=== PATIENT | female | born 1940 | race Caucasian/White ===

== ENCOUNTER 2017-11-02 11:59 | Emergency (ER) | payer OTHER, BC ==
[2017-11-02 12:16] LABS: URINE APPEARANCE Clear; URINE BILIRUBIN 1+ (NEGATIVE); URINE GLUCOSE (UA) Trace (NEGATIVE); URINE KETONE 1+ (NEGATIVE)
[2017-11-02 12:17] LABS: URINE COLOR ORANGE; URINE LEUK ESTERASE 3+ (NEGATIVE); URINE NITRITE Positive (NEGATIVE); URINE PROTEIN 3+ (NEGATIVE)
[2017-11-02 12:28] VITALS: TEMP 98.8; BMI 27.4
[2017-11-02 12:32] LABS: EPI CELLS FEW /HPF; URINE WBC >100 (0-5)
[2017-11-02] MEDS ORDERED: ONDANSETRON 4 MG/2 ML VIAL IVPUSH ONE (12:32)
[2017-11-02] MEDS ORDERED: SODIUM CHLORIDE 0.9% 1000 ML INFUS.BAG IV ONE (12:32)
[2017-11-02] MEDS ORDERED: ONDANSETRON 4 MG/2 ML VIAL ONE (12:51)
[2017-11-02 13:31] LABS: ALBUMIN 3.8 g/dl (3.5-5.0); ALK PHOS 51 U/L (32-92); ANION GAP 8 (8-16); BILIRUBIN,TOTAL 1.1 mg/dl (0.2-1.0); BLOOD UREA NITROGEN 17 mg/dl (7-18); CALCIUM 9.2 mg/dl (8.4-10.2); CHLORIDE 102 mmol/L (98-107); CO2 25 mmol/L (22-28); CREATININE 1.1 mg/dl (0.6-1.3); GLUCOSE,RANDOM 280 mg/dl (74-106); POTASSIUM 3.8 mmol/L (3.5-5.1); SGOT/AST 23 U/L (10-42); SGPT/ALT 15 U/L (10-40); SODIUM 135 mmol/L (136-145); TOT PROT 6.5 g/dl (6.4-8.3)
[2017-11-02] MEDS ORDERED: CEFTRIAXONE 1,000 MG in DEXTROSE 5%-WATER - 50 ML IVPB ONE (13:34)
[2017-11-02] MEDS ORDERED: cefTRIAXone SODIUM 1 GM VIAL ONE (14:00)
--- NOTE | 2017-11-02 14:12 | PDOC ---
History of Present Illness - General Chief Complaint: Urinary Problem Stated Complaint: UTI Time Seen by Provider: 11/02/17 12:05 History Source: Patient Exam Limitations: No Limitations - History of Present Illness Initial Comments: 11/02/17 14:07 76-year-old female history of diverticulitis and diabetes here today complaining of suprapubic abdominal pain burning with urination and dysuria. She states she had a fever of 102 yesterday. She did have a CAT scan of the abdomen and pelvis one week ago for abdominal pain which she is unsure of the results did have some nausea and vomiting yesterday as well as 1 week ago following her CAT scan. Otherwise has been tolerating by mouth denies new back pain she does have some chronic Musca skeletal low back pain but no changes. Describes suprapubic cramping no modifying factors Past History - Past Medical History Allergies/Adverse Reactions: Allergies Allergy/AdvReac Type Severity Reaction Status Date / Time No Known Allergies Allergy Verified 11/02/17 12:00 Home Medications: Ambulatory Orders Isosorbide Mononitrate 30 mg PO DAILY 07/03/15 Sitagliptin Phos/Metformin HCl [Janumet 50-500 mg Tablet] 1 tab PO BID 07/03/15 Telmisartan [Micardis] 80 mg PO DAILY 07/03/15 Aspirin [ASA -] 81 mg PO DAILY 07/04/15 Zolpidem Tartrate [Ambien] 5 mg PO HS 07/04/15 Nifedipine ER [Procardia XL -] 120 mg PO DAILY #30 tab.er.24 07/06/15 Cephalexin Monohydrate [Keflex -] 500 mg PO Q8H #21 capsule 11/02/17 Duloxetine HCl 30 mg PO DAILY 11/02/17 Insulin Lispro Protamin/Lispro [Humalog Mix 75-25 Kwikpen] 100 unit SQ ASDIR 06/10 Olmesartan Medoxomil [Benicar (Nf)] 40 mg PO DAILY 11/02/17 Spironolactone 50 mg PO DAILY 11/02/17 Anemia: No Asthma: Yes Cancer: Yes (LT BREAST) Cardiac Disorders: Yes (CORONARY ATHEROSCLEROSIS) CVA: Yes (STROKE) COPD: No CHF: No Dementia: No Diabetes: Yes (IDDM,DIABETIC NEUROPATHY) GI Disorders: Yes (DIVERTICULAR DISEASE OF THE COLON,INTERNAL HEMORRHOIDS,GERD, CONSTIPATION) Disorders: No HTN: Yes Hypercholesterolemia: Yes Liver Disease: No Seizures: No Thyroid Disease: No - Surgical History Abdominal Surgery: Yes Appendectomy: No Cardiac Surgery: Yes (CARDIAC STENT 2X) Cholecystectomy: Yes Neurologic Surgery: No Orthopedic Surgery: Yes (right ankle sx- screws) - Immunization History Immunization Up to Date: Yes - Suicide/Smoking/Psychosocial Hx Smoking Status: No Smoking History: Never smoked Have you smoked in the past 12 months: No Number of Cigarettes Smoked Daily: 0 Information on smoking cessation initiated: No Hx Alcohol Use: No Drug/Substance Use Hx: No Substance Use Type: None Hx Substance Use Treatment: No *Physical Exam - Vital Signs Last Vital Signs Temp Pulse Resp BP Pulse Ox 98.8 F 79 20 153/75 98 11/02/17 12:00 11/02/17 12:00 11/02/17 13:00 11/02/17 12:00 11/02/17 12:00 - Physical Exam General Appearance: Yes: Appropriately Dressed Respiratory/Chest: positive: Lungs Clear, Normal Breath Sounds Cardiovascular: positive: Regular Rhythm, Regular Rate, S1, S2 Gastrointestinal/Abdominal: positive: Normal Bowel Sounds, Tender (suprapubic tenderness. no rebound no guarding. no cva tenderness) Musculoskeletal: positive: Normal Inspection. negative: CVA Tenderness Extremity: positive: Normal Capillary Refill, Normal Inspection Integumentary: positive: Normal Color, Dry, Warm Neurologic: positive: Fully Oriented, Alert, Normal Mood/Affect ED Treatment Course - LABORATORY CBC & Chemistry Diagram: 11/02/17 13:09 11/02/17 13:09 - ADDITIONAL ORDERS Additional order review: Laboratory Results 11/02/17 11/02/17 13:09 12:10 Sodium 135 L Potassium 3.8 Chloride 102 Carbon Dioxide 25 Anion Gap 8 BUN 17 Creatinine 1.1 Creat Clearance w eGFR 48.42 Random Glucose 280 H Calcium 9.2 Total Bilirubin 1.1 H AST 23 ALT 15 Alkaline Phosphatase 51 Total Protein 6.5 Albumin 3.8 Urine Color [place] Urine Appearance Clear Urine pH 5.0 Ur Specific [place] 1.020 Urine Protein 3+ H Urine Glucose (UA) Trace Urine Ketones 1+ H Urine Blood 3+ H Urine Nitrite Positive Urine Bilirubin 1+ H Urine Urobilinogen 2.0 H Ur Leukocyte Esterase 3+ H Urine RBC 10-15 Urine WBC >100 Ur Epithelial Cells Few - Medications Given in the ED: ED Medications Discontinued Medications Generic Name Dose Route Start Last Admin Trade Name Inna PRN Reason Stop Dose Admin Ceftriaxone Sodium 1,000 mg/ 50 mls @ 100 mls/hr 11/02/17 13:34 11/02/17 14: 04 Dextrose IVPB 11/02/17 14:03 100 mls/hr ONCE ONE Administration Ondansetron HCl 4 mg 11/02/17 12:32 11/02/17 13:10 Zofran Injection IVPUSH 11/02/17 12:33 4 mg ONCE ONE Administration Sodium Chloride 1,000 ml 11/02/17 12:32 11/02/17 13:10 Normal Saline - IV 11/02/17 12:33 1,000 ml ONCE ONE Administration Medical Decision Making - Medical Decision Making 11/02/17 14:08 76-year-old female diabetes here today complaining of dysuria urgency and mild superficial tenderness on exam. Likely UTI differential includes polynephritis, another possibility is diverticulitis over the patient did recently have a CAT scan done as an outpatient. We will send blood work with a lactate to rule out any underlying sepsis. Likely treat clinically for a UTI due to patient is diabetic we'll give her one IV dose of antibiotics pending lab results will likely be treated as an outpatient with close follow-up with her primary doctor 11/02/17 15:03 pt with normal wbc, uti. given ceftriaxone here, dc on keflex. cultures sent. told to follow up wtih dr. Toney next week. *DC/Admit/Observation/Transfer Diagnosis at time of Disposition: UTI (urinary tract infection) - Discharge Dispostion Disposition: HOME Condition at time of disposition: Improved - Prescriptions Prescriptions: Cephalexin Monohydrate [Keflex -] 500 mg PO Q8H #21 capsule - Referrals Referrals: Ishan Toney MD [Staff Physician] - - Patient Instructions Printed Discharge Instructions: Urinary Tract Infection Additional Instructions: you should take keflex 500 mg three times daily x one week. return for persistant vomiting, fevers, worsening abdominal pain or any concerns. you should follow up with your primary doctor , Dr. Toney next week. call to schedule. drink plenty of liquids - Post Discharge Activity
[2017-11-02 14:49] LABS: EOS % 3.1 % (0-4.5); HEMOGLOBIN 14.6 GM/dL (10.7-15.3); WHITE BLOOD COUNT 8.9 K/mm3 (4.0-10.0)
[2017-11-02 14:53] LABS: BASO % 0.5 % (0-2.0); HEMATOCRIT 42.3 % (32.4-45.2); LYMPH % 14.2 % (8-40); MCH 32.7 pg (25.7-33.7); MCHC 34.4 g/dl (32.0-36.0); MEAN PLT VOLUME 10.4 fl (7.5-11.1); MONO % 8.2 % (3.8-10.2); PLATELET COUNT 192 K/MM3 (134-434); RBC 4.46 M/mm3 (3.60-5.2); RDW 12.3 % (11.6-15.6)
== END 2017-11-02 17:18 | disposition home or self-care (01) ==
LOC: FER 11:59
PROC: 3E03329 Introduction of Other Anti-infective into Peripheral Vein, Percutaneous Approach (ICD-10-PCS; principal; 2017-11-02)
PROC: 3E033GC Introduction of Other Therapeutic Substance into Peripheral Vein, Percutaneous Approach (ICD-10-PCS; 2017-11-02)
PROC: 3E0337Z Introduction of Electrolytic and Water Balance Substance into Peripheral Vein, Percutaneous Approach (ICD-10-PCS; 2017-11-02)
DX: N39.0 Urinary tract infection, site not specified (principal); E11.9 Type 2 diabetes mellitus without complications; Z85.3 Personal history of malignant neoplasm of breast; Z79.4 Long term (current) use of insulin; Z86.73 Personal history of transient ischemic attack (TIA), and cerebral infarction without residual deficits; E78.00 Pure hypercholesterolemia, unspecified; Z95.5 Presence of coronary angioplasty implant and graft
CPT/HCPCS: 36415; 80053; 81003; 81015; 83605; 85025; 87086; 87186; 99283-25; J7030

== ENCOUNTER 2019-01-01 15:54 | Inpatient (IN) | payer OTHER, BC ==
[2019-01-01] MEDS ORDERED: METOCLOPRAMIDE HCL INJECTION 10 MG/2 ML VIAL IVPB ONE (16:21)
[2019-01-01] MEDS ORDERED: ACETAMINOPHEN 1000 MG/100 ML VIAL (NON FORMULARY) IVPB ONE (16:21)
[2019-01-01] MEDS ORDERED: SODIUM CHLORIDE 1,000 ML IV SCH (16:30)
[2019-01-01] MEDS ORDERED: ACETAMINOPHEN INJECTION 100 ML IVPB ONE (17:09)
[2019-01-01] MEDS ORDERED: METOCLOPRAMIDE HCL INJECTION 10 MG/2 ML VIAL ONE (17:09)
--- NOTE | 2019-01-01 17:55 | PDOC ---
Documentation entered by Shahnaz Braswell SCRIBE, acting as scribe for Dinorah Barkley MD. Dinorah Barkley MD: This documentation has been prepared by the derianibe, Shahnaz Braswell SCRIBE, under my direction and personally reviewed by me in its entirety. I confirm that the documentation accurately reflects all work, treatment, procedures, and medical decision making performed by me. History of Present Illness - General Chief Complaint: CVA/TIA Stated Complaint: HEADACHE & FACE NUMBNESS Time Seen by Provider: 01/01/19 16:00 History Source: Patient Exam Limitations: No Limitations - History of Present Illness Initial Comments: 01/01/19 16:51 The patient is a 78-year-old female, with a past medical history of asthma, CAD , LT breast CA, CVA, IDDM, diabetic neuropathy, HLD, GERD, hemorrhoids, diverticulitis, who presents to the ED with stroke-like symptoms. The patient awoke this morning at 6AM with a headache and RT facial numbness. She states the headache is located at the top of her head and she rates it a 10/10 in severity. She reports associated blurred vision, photophobia, nausea, and vomiting. Patient has had two episodes of NB/NB emesis. The patient denies any fever or chills. Denies any frequency, urgency, hesitancy , dysuria, or hematuria. Denies any chest pain or shortness of breath. Allergies: NKA Social History: Denies any tobacco, alcohol, or IVDA. Surgical History: Cardiac stents x2, RT ankle surgery, cholecystectomy. PCP: Dr. Amando Bains tPA Exclusion checklist 3-4.5h - Time Elapsed Date last known well: 12/31/18 Time last known well: 20:00 Elaspsed time: 1 Day(s) and 21 Hour(s) and 8 Minutes - Thrombolytic Therapy Candidate Is patient eligible for thrombolytic therapy: No - Exclusion Criteria 3-4.5 hr SBP greater than 185 or DBP greater than 110mmHg despite tx: Yes Recent IC/spinal surgery,head trauma or stroke<3mos.: No Hx IC hemorrhage, IC neoplasm, AV malformation or aneurysm: No Active internal bleeding: No Blding diathesis(low plt ct, inc PTT,INR>1.7 or use of NOAC): No Symptoms suggest subarachnoid hemorrhage: No CT demonstrates multilobar infarct(>1/3 cerebral hemiphere): No Arterial puncture at noncompressible site in previous 7 days: No Blood glucose concentration less than 50mg/dL (2.7mmol/L): No - Relative Exclusion Criteria 3-4.5 hr Life expectancy <1 yr or severe co-morbid illness: No : No Patient/family refused: No Rapid improvement: No Stroke severity too mild: No Recent acute NC (w/in previous 3 months): No Seizure at onset with postictal residual neuro impairments: No Major surgery or serious trauma w/in previous 14 days: No Recent GI or hemorrhage (w/in previous 21 days): No - Add'l Relative Exclusion 3-4.5 hr Age > 80: No Hx of both diabetes AND prior ischemic stroke: No Taking an oral anticoagulant regardless of INR: No NIHSS >25: No - Ineligibility reason(s) Reasons No tPA given: Outside of window - delayed arrival NIH Stroke Scale - Last Known Well Date/Time & Onset Date Last Known Well: 12/31/18 Time Last Known Well: 20:00 - Initial Evaluation Level of consciousness: Alert Ask patient the month and their age: Answers both correctly Ask patient to open & close eyes; make fist and let go: Obeys both correctly Best gaze (horizontal eye movement): Normal Visual field testing: Partial hemianopia Facial paresis (Show teeth/raise eyebrows/close eyes tight): Normal symmetrical movement Motor Function: Left Arm: Normal Motor Function: Right Arm: Normal (extends arm 90 (or 45) degrees for 10 seconds without drift Motor Function: Left Leg: Normal (extends leg 30 degrees for 5 seconds without drift) Motor Function: Right Leg: Drift Limb Ataxia: No ataxia Sensory(Use pinprick test arms,legs,trunk,face/side to side): Normal Best language (Describe picture, name items, read sentences): No Aphasia Dysarthria (read several words): Normal articulation Extinction and Inattention: No abnormality - Total Score NIH Stroke Scale Score: 2 Past History - Past Medical History Allergies/Adverse Reactions: Allergies Allergy/AdvReac Type Severity Reaction Status Date / Time No Known Allergies Allergy Verified 11/02/17 12:00 Home Medications: Ambulatory Orders Isosorbide Mononitrate 30 mg PO DAILY 07/03/15 Sitagliptin Phos/Metformin HCl [Janumet 50-500 mg Tablet] 1 tab PO BID 07/03/15 Telmisartan [Micardis] 80 mg PO DAILY 07/03/15 Nifedipine ER [Procardia XL -] 120 mg PO DAILY #30 tab.er.24 07/06/15 Duloxetine HCl 30 mg PO DAILY 11/02/17 Insulin Lispro Protamin/Lispro [Humalog Mix 75-25 Kwikpen] 100 unit SQ ASDIR 06/10 Spironolactone 50 mg PO DAILY 11/02/17 Aspirin [Aspirin EC] 81 mg PO DAILY 01/01/19 Lubiprostone [Amitiza] 8 mcg PO BID 01/01/19 Zolpidem Tartrate [Ambien] 10 mg PO HS 01/01/19 Anemia: No Asthma: Yes Cancer: Yes (LT BREAST) Cardiac Disorders: Yes (CORONARY ATHEROSCLEROSIS) CVA: Yes (STROKE) COPD: No CHF: No Dementia: No Diabetes: Yes (IDDM,DIABETIC NEUROPATHY) GI Disorders: Yes (DIVERTICULAR DISEASE OF THE COLON,INTERNAL HEMORRHOIDS,GERD, CONSTIPATION) Disorders: No HTN: Yes Hypercholesterolemia: Yes Liver Disease: No Seizures: No Thyroid Disease: No - Surgical History Abdominal Surgery: Yes Appendectomy: No Cardiac Surgery: Yes (CARDIAC STENT 2X) Cholecystectomy: Yes Neurologic Surgery: No Orthopedic Surgery: Yes (right ankle sx- screws) - Immunization History Immunization Up to Date: Yes - Suicide/Smoking/Psychosocial Hx Smoking Status: No Smoking History: Never smoked Have you smoked in the past 12 months: No Number of Cigarettes Smoked Daily: 0 Hx Alcohol Use: No Drug/Substance Use Hx: No Substance Use Type: None Hx Substance Use Treatment: No Review of Systems - Review of Systems Able to Perform ROS?: Yes Comments:: 01/01/19 16:52 GENERAL/CONSTITUTIONAL: No fever or chills. No weakness. HEAD, EYES, EARS, NOSE AND THROAT: (+)Blurred vision, photophobia. No ear pain or discharge. No sore throat. CARDIOVASCULAR: No chest pain or shortness of breath. RESPIRATORY: No cough, wheezing, or hemoptysis. GASTROINTESTINAL: (+)Nausea and vomiting. No diarrhea or constipation. GENITOURINARY: No dysuria, frequency, or change in urination. MUSCULOSKELETAL: No joint or muscle swelling or pain. No neck or back pain. SKIN: No rash NEUROLOGIC: (+)Headache, RT facial numbness. No vertigo, loss of consciousness. ENDOCRINE: No increased thirst. No abnormal weight change. HEMATOLOGIC/LYMPHATIC: No anemia, easy bleeding, or history of blood clots. ALLERGIC/IMMUNOLOGIC: No hives or skin allergy. *Physical Exam - Physical Exam Comments: 01/01/19 16:54 GENERAL: The patient is in no acute distress. HEAD: Normal with no signs of trauma. EYES: PERRLA, EOMI, sclera anicteric, conjunctiva clear. ENT: Ears normal, nares patent, oropharynx clear without exudates. Moist mucous membranes. NECK: Normal range of motion, supple without lymphadenopathy, JVD, or masses. LUNGS: Breath sounds equal, clear to auscultation bilaterally. No wheezes, and no crackles. HEART:Regular rate and rhythm, normal S1 and S2 without murmur, rub or gallop. ABDOMEN: Soft, nontender, normoactive bowel sounds. No guarding, no rebound. No masses palpable. EXTREMITIES: Normal range of motion, no edema. No clubbing or cyanosis. No erythema, or tenderness. NEUROLOGICAL: Awake, alert, answering questions appropriately. (+)Poor peripheral vision on RT side, diminished sensation RT side of face. Sensation intact throughout. Muscle strength in upper extremities 5/5, but lower extremities: LLE 5/5 and RLE 3/5. MUSCULOSKELETAL: Back non-tender to palpation, no CVA tenderness SKIN: Warm, Dry, normal turgor, no rashes or lesions noted. ED Treatment Course - LABORATORY CBC & Chemistry Diagram: 01/02/19 06:00 01/02/19 06:00 Medical Decision Making - Critical Care Time Total Critical Care Time (minutes): 60 Critical Care Statement: The care of this patient involved high complexity decision making to prevent further life threatening deterioration of the patient 's condition and/or to evaluate & treat vital organ system(s) failure or risk of failure. - Medical Decision Making Pt presents with symptoms concerning for stroke Pt also has a headache Will give: Reglan/Tylenol for headache Labetolol for elevated BP CT head Labs EKG CXR Continuous Cardiac monitoring 01/01/19 18:04 Dr. Jay was paged and notified via phone service. 01/01/19 18:[address] Pierre Jay has some concern because if patient does not get a bed at [facility], she can not put in orders for her 01/01/19 18:34 Laboratory Tests 01/01/19 01/01/19 01/01/19 17:30 17:30 17:30 WBC 7.6 Hgb 15.8 H Hct 48.1 H Plt Count 215 INR 1.10 Urine Blood Negative Urine Nitrite Negative Ur Leukocyte Esterase 2+ Urine RBC No Result Required. Urine WBC 2-5 EKG- NSR rate of 69 bpm, axis nml, no st elevation or depression, t waves upright Case reviewed with hospitalist Will admit to [facility] Case reviewed with Dr El 01/01/19 18:43 Laboratory Tests 01/01/19 01/01/19 01/01/19 17:30 17:30 17:30 BUN 19.0 H Creatinine 0.9 Creatine Kinase 120 Troponin I < 0.03 01/01/19 19:[address] Garrison Pt needs MRI, Carotid duplex Pt already took Asa 81, no need to add Can add Plavix Clinical Impression: CVA, initial presentation 01/02/19 13:18 *DC/Admit/Observation/Transfer Diagnosis at time of Disposition: CVA (cerebral vascular accident) Qualifiers: CVA mechanism: unspecified Qualified Code(s): I63.9 - Cerebral infarction, unspecified - Discharge Dispostion Condition at time of disposition: Stable Decision to Admit order: Yes - Referrals - Patient Instructions - Post Discharge Activity
[2019-01-01 18:15] LABS: BASO % 0.3 % (0-2.0); HEMATOCRIT 48.1 % (32.4-45.2); HEMOGLOBIN 15.8 GM/dl (10.7-15.3); LYMPH % 27.8 % (8-40); MCHC 32.9 g/dl (32.0-36.0); MEAN CELL VOLUME 94.2 fl (80-96); MEAN PLT VOLUME 11.2 fl (7.5-11.1); MONO % 7.7 % (3.8-10.2); NEUT % 62.2 % (42.8-82.8); PLATELET COUNT 215 K/MM3 (134-434); RBC 5.11 M/mm3 (3.60-5.2); WHITE BLOOD COUNT 7.6 K/mm3 (4.0-10.8)
[2019-01-01 18:20] LABS: EPITHELIAL CELLS FEW /hpf
[2019-01-01 18:22] LABS: INR 1.1 (0.82-1.09); PROTHROMBIN TIME (PATIENT) 12.3 SEC (10.2-13.0)
[2019-01-01 18:29] LABS: ALBUMIN 4.4 g/dl (3.4-5.0); BILIRUBIN,TOTAL 1.5 mg/dl (0.2-1); CALCIUM 9.6 mg/dl (8.5-10); CREATININE 0.9 mg/dl (0.55-1.3); POTASSIUM 4.2 mmol/L (3.5-5.1); TOT PROT 7.2 g/dl (6.4-8.2)
[2019-01-01] MEDS ORDERED: LABETALOL HCL 5 MG/1 ML (100MG/20 ML VIAL) IVPUSH ONE (19:00)
--- NOTE | 2019-01-01 19:01 | HP ---
CHIEF COMPLAINT: headache, right facial numbness PCP: Dr. Amando Bains HISTORY OF PRESENT ILLNESS: 78 year-old female c/o waking up this morning around 6am with severe headache, transient visual loss, and tongue heaviness. Headache was rated 10/10 at its worst. Also c/o associated blurred vision, photophobia, nausea, and vomiting. Patient has had two episodes of NB/NB emesis. Denied any focal weakness. Says she still has some residual right face numbness from old stroke 10 years ago. (1) reglan (2) tylenol (3) iv fluid Recent Travel: no PAST MEDICAL HISTORY: asthma, CAD, LT breast CA, CVA, IDDM, diabetic neuropathy , HLD, GERD, hemorrhoids, diverticulitis, PAST SURGICAL HISTORY: Cardiac stents x2, RT ankle surgery, cholecystectomy. Social History:Denies any tobacco, alcohol, or IVDA. Family History: Allergies No Known Allergies Allergy (Verified 11/02/17 12:00) HOME MEDICATIONS: Home Medications Medication Instructions Recorded Isosorbide Mononitrate 30 mg PO DAILY 07/03/15 Sitagliptin Phos/Metformin HCl 1 tab PO BID 07/03/15 [Janumet 50-500 mg Tablet] Telmisartan [Micardis] 80 mg PO DAILY 07/03/15 Nifedipine ER [Procardia XL -] 120 mg PO DAILY #30 tab.er.24 07/06/15 Duloxetine HCl 30 mg PO DAILY 11/02/17 Insulin Lispro Protamin/Lispro 100 unit SQ ASDIR 11/02/17 [Humalog Mix 75-25 Kwikpen] Spironolactone 50 mg PO DAILY 11/02/17 Aspirin [Aspirin EC] 81 mg PO DAILY 01/01/19 Lubiprostone [Amitiza] 8 mcg PO BID 01/01/19 Zolpidem Tartrate [Ambien] 10 mg PO HS 01/01/19 REVIEW OF SYSTEMS CONSTITUTIONAL: Absent: fever, chills, diaphoresis, generalized weakness, malaise, loss of appetite, weight change HEENT: Absent: rhinorrhea, nasal congestion, throat pain, throat swelling, difficulty swallowing, mouth swelling, ear pain, eye pain, visual changes CARDIOVASCULAR: Absent: chest pain, syncope, palpitations, irregular heart rate, lightheadedness , peripheral edema RESPIRATORY: Absent: cough, shortness of breath, dyspnea with exertion, orthopnea, wheezing, stridor, hemoptysis GASTROINTESTINAL: Absent: abdominal pain, abdominal distension, nausea, vomiting, diarrhea, constipation, melena, hematochezia GENITOURINARY: Absent: dysuria, frequency, urgency, hesitancy, hematuria, flank pain, genital pain MUSCULOSKELETAL: Absent: myalgia, arthralgia, joint swelling, back pain, neck pain SKIN: Absent: rash, itching, pallor HEMATOLOGIC/IMMUNOLOGIC: Absent: easy bleeding, easy bruising, lymphadenopathy, frequent infections ENDOCRINE: Absent: unexplained weight gain, unexplained weight loss, heat intolerance, cold intolerance NEUROLOGIC: Absent: , focal weakness or dizziness, unsteady gait, seizure, mental status changes, bladder or bowel incontinence present-tongue numbness, weakness , headache, visual disturbance PSYCHIATRIC: Absent: anxiety, depression, suicidal or homicidal ideation, hallucinations. PHYSICAL EXAMINATION Vital Signs - 24 hr 01/01/19 01/01/19 01/01/19 15:56 17:00 17:45 Temperature 98.7 F Pulse Rate 69 Pulse Rate [ 72 69 Apical] Respiratory 16 18 16 Rate Blood Pressure 205/80 H Blood Pressure 185/75 H [Left Arm] Blood Pressure 174/70 H [Right Arm] O2 Sat by Pulse 99 97 99 Oximetry (%) 01/01/19 18:05 Temperature Pulse Rate Pulse Rate [ 70 Apical] Respiratory 15 Rate Blood Pressure Blood Pressure [Left Arm] Blood Pressure 177/77 H [Right Arm] O2 Sat by Pulse 97 Oximetry (%) GENERAL: Awake, alert, and fully oriented, in no acute distress. HEAD: Normal with no signs of trauma. EYES: Pupils equal, round and reactive to light, extraocular movements intact, sclera anicteric, conjunctiva clear. No lid lag. EARS, NOSE, THROAT: Ears normal, nares patent, oropharynx clear without exudates. Moist mucous membranes. NECK: Normal range of motion, supple without lymphadenopathy, JVD, or masses. LUNGS: Breath sounds equal, clear to auscultation bilaterally. No wheezes, and no crackles. No accessory muscle use. HEART: Regular rate and rhythm, normal S1 and S2 without murmur, rub or gallop. ABDOMEN: Soft, nontender, not distended, normoactive bowel sounds, no guarding, no rebound, no masses. MUSCULOSKELETAL: Normal range of motion at all joints. No bony deformities or tenderness. No CVA tenderness. UPPER EXTREMITIES: 2+ pulses, warm, well-perfused. No cyanosis. No clubbing. No peripheral edema. LOWER EXTREMITIES: 2+ pulses, warm, well-perfused. right ankle scar, +swelling NEUROLOGICAL: Cranial nerves II-XII intact. Normal speech. Normal gait. PSYCHIATRIC: Cooperative. Good eye contact. Appropriate mood and affect.Possi SKIN: Warm, dry, normal turgor, no rashes or lesions noted, normal capillary refill. Laboratory Results - last 24 hr 01/01/19 01/01/19 01/01/19 17:30 17:30 17:30 WBC 7.6 RBC 5.11 Hgb 15.8 H Hct 48.1 H MCV 94.2 MCH 31.0 MCHC 32.9 RDW 12.0 Plt Count 215 MPV 11.2 H Absolute Neuts (auto) 4.7 Neutrophils % 62.2 Lymphocytes % 27.8 Monocytes % 7.7 Eosinophils % 2.0 Basophils % 0.3 PT with INR 12.3 INR 1.10 Sodium 139 Potassium 4.2 Chloride 104 Carbon Dioxide 26 Anion Gap 9 BUN 19.0 H Creatinine 0.9 Est GFR (CKD-EPI)AfAm 71.48 Est GFR (CKD-EPI)NonAf 61.67 Random Glucose 87 Calcium 9.6 Total Bilirubin 1.5 H AST 32 ALT 32 Alkaline Phosphatase 74 Creatine Kinase 120 Troponin I Cancelled Total Protein 7.2 Albumin 4.4 Triglycerides 69 Cholesterol 188 Total LDL Cholesterol 119 H HDL Cholesterol 56 Urine Color Urine Appearance Urine pH Urine Protein Urine Glucose (UA) Urine Ketones Urine Blood Urine Nitrite Urine Bilirubin Urine Urobilinogen Ur Leukocyte Esterase Urine RBC Urine WBC Ur Transition Epith Cell 01/01/19 01/01/19 01/01/19 17:30 17:30 17:30 WBC RBC Hgb Hct MCV MCH MCHC RDW Plt Count MPV Absolute Neuts (auto) Neutrophils % Lymphocytes % Monocytes % Eosinophils % Basophils % PT with INR INR Sodium Potassium Chloride Carbon Dioxide Anion Gap BUN Creatinine Est GFR (CKD-EPI)AfAm Est GFR (CKD-EPI)NonAf Random Glucose Calcium Total Bilirubin AST ALT Alkaline Phosphatase Creatine Kinase 120 Troponin I < 0.03 Total Protein Albumin Triglycerides Cholesterol Total LDL Cholesterol HDL Cholesterol Urine Color Yellow Urine Appearance Clear Urine pH 6.5 Urine Protein Negative Urine Glucose (UA) 2+ H Urine Ketones Trace Urine Blood Negative Urine Nitrite Negative Urine Bilirubin Negative Urine Urobilinogen 0.2 Ur Leukocyte Esterase 2+ Urine RBC No Result Required. Urine WBC 2-5 Ur Transition Epith Cell Few Head CT reviewed - hypodense lesions in left cerebellum vs left posterior lobe ASSESSMENT/PLAN: #Possible CVA -microvascular?- acute neurological symptoms (headache, tongue heaviness) with+ Head CT findings-was out of window for TPA administration. -admit to telemetry -npo -check bgm -ekg -cardiac monitoring -ASA -lipitor 80mg po qhs -neuro checks q4hrs -bed rest -brain mri, neck mra -echo -carotid duplex -neurology consult #HTN -uncontrolled -Temisartan -Nifedipine #Insulin dependent DM - -novolog sliding scale -check a1c #CAD -ASSA -lipitor #GERD -protonix 40mg po #asthma -albuterol neb prn #DVT ppx -heparin sc Visit type - Emergency Visit Emergency Visit: Yes Care time: The patient presented to the Emergency Department on the above date and was hospitalized for further evaluation of their emergent condition. - New Patient This patient is new to me today: Yes Date on this admission: 01/01/19 - Critical Care Critical Care patient: No
[2019-01-01] MEDS ORDERED: CLOPIDOGREL BISULFATE 75 MG TABLET (FP) PO ONE (19:14)
[2019-01-01] MEDS ORDERED: LABETALOL HCL 5 MG/1 ML (100MG/20 ML VIAL) ONE (19:47)
[2019-01-01] MEDS ORDERED: CLOPIDOGREL BISULFATE 75 MG TABLET (FP) ONE (19:52)
[2019-01-01] MEDS: SODIUM CHLORIDE 1,000 ML IV SCH (20:00)
[2019-01-01] MEDS: INSULIN SLIDING SCALE (NOVOLOG) 1 VIAL SQ SCH (21:51)
[2019-01-01] MEDS ORDERED: HEPARIN NA (PORCINE) 5,000 UNITS/ML 1ML VIAL ONE (21:52)
[2019-01-01] MEDS ORDERED: ATORVASTATIN CA 20 MG TABLET (FP) ONE (21:53)
[2019-01-01] MEDS: HEPARIN NA (PORCINE) 5,000 UNITS/ML 1ML VIAL SQ SCH (21:58)
[2019-01-01] MEDS: ATORVASTATIN CA 40 MG TABLET (FP) PO SCH (21:58)
[2019-01-02] MEDS: SODIUM CHLORIDE 1,000 ML IV SCH (08:00)
[2019-01-02 08:32] LABS: HEMATOCRIT 47.8 % (32.4-45.2); MCH 31.8 pg (25.7-33.7); MCHC 33.5 g/dl (32.0-36.0); MEAN CELL VOLUME 94.8 fl (80-96); MEAN PLT VOLUME 11.4 fl (7.5-11.1); PLATELET COUNT 195 K/MM3 (134-434); RBC 5.04 M/mm3 (3.60-5.2); RDW 12.1 % (11.6-15.6); WHITE BLOOD COUNT 6.2 K/mm3 (4.0-10.8)
[2019-01-02 08:40] LABS: CALCIUM 9.4 mg/dl (8.5-10); CREATININE 0.8 mg/dl (0.55-1.3); MAGNESIUM 2.4 mg/dL (1.8-2.4); POTASSIUM 4.1 mmol/L (3.5-5.1)
--- NOTE | 2019-01-02 08:53 | CON.NEURO ---
Consult - History of Present Illness History of Present Illness: 78 year-old female c/o waking up this morning around 6am on 01/01/19 with severe headache, transient visual loss, and tongue heaviness. Headache was rated 10/10 at its worst. Also c/o associated blurred vision, photophobia, nausea, and vomiting. Patient has had two episodes of NB/NB emesis. Denied any focal weakness. Says she still has some residual right face numbness from old stroke 10 years ago. This AM, feels sx better; denies focal weakness, numbness, slurred speech or vision c/o. at home, with recent health issues. on ASA, statin. sees cardiology DR Segovia. PMD : Dr. Amando Bains. 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 hypoattenuation deep white matter L; IMPRESSION: Hypodense areas within the left occipital lobe and left cerebellum suspicious for acute/subacute infarcts. The chronicity of these infarcts is uncertain and MRI follow-up is recommended. Please see above discussion. 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 Cardio/Vascular: Yes: CAD, HTN, Hyperlipdemia Pulmonary: Yes: Asthma Endocrine: Yes: Diabetes Mellitus - Alcohol/Substance Use Hx Alcohol Use: No - Smoking History Smoking history: Never smoked Have you smoked in the past 12 months: No Aproximately how many cigarettes per day: 0 - Social History Usual Living Arrangement: With Spouse ADL: Independent History of Recent Travel: No Home Medications - Allergies Allergies/Adverse Reactions: Allergies Allergy/AdvReac Type Severity Reaction Status Date / Time No Known Allergies Allergy Verified 11/02/17 12:00 - Home Medications Home Medications: Ambulatory Orders Isosorbide Mononitrate 30 mg PO DAILY 07/03/15 Sitagliptin Phos/Metformin HCl [Janumet 50-500 mg Tablet] 1 tab PO BID 07/03/15 Telmisartan [Micardis] 80 mg PO DAILY 07/03/15 Nifedipine ER [Procardia XL -] 120 mg PO DAILY #30 tab.er.24 07/06/15 Duloxetine HCl 30 mg PO DAILY 11/02/17 Insulin Lispro Protamin/Lispro [Humalog Mix 75-25 Kwikpen] 100 unit SQ ASDIR 06/10 Spironolactone 50 mg PO DAILY 11/02/17 Aspirin [Aspirin EC] 81 mg PO DAILY 01/01/19 Lubiprostone [Amitiza] 8 mcg PO BID 01/01/19 Zolpidem Tartrate [Ambien] 10 mg PO HS 01/01/19 Physical Exam-Neuro Vital Signs: Vital Signs Temperature 98.5 F 01/02/19 04:00 Pulse Rate 65 01/02/19 08:27 Respiratory Rate 16 01/02/19 08:27 Blood Pressure 188/77 H 01/02/19 08:27 O2 Sat by Pulse Oximetry (%) 100 01/02/19 08:27 Labs: CBC, BMP 01/02/19 06:00 01/02/19 06:00 INR, PTT INR 1.10 (0.82-1.09) 01/01/19 17:30 - Neuro Exam Level Of Consciousness: Yes: Alert (Awake, Alert, EOMI, no clear field cut, min R facial, no drift, no focal weakness, reflexes trace throughout) Imaging - Results Cat Scan: Report Reviewed, Image Reviewed Problem List - Problems (1) CVA (cerebral vascular accident) Code(s): I63.9 - CEREBRAL INFARCTION, UNSPECIFIED Qualifiers: CVA mechanism: unspecified Qualified Code(s): I63.9 - Cerebral infarction, unspecified (2) Diabetes mellitus type 2 with complications Code(s): E11.8 - TYPE 2 DIABETES MELLITUS WITH UNSPECIFIED COMPLICATIONS (3) HLD (hyperlipidemia) Code(s): E78.5 - HYPERLIPIDEMIA, UNSPECIFIED (4) Hypertensive urgency Code(s): I10 - ESSENTIAL (PRIMARY) HYPERTENSION Assessment/Plan 78 year-old female c/o waking up this morning around 6am on 01/01/19 with severe headache, transient visual loss, and tongue heaviness. Headache was rated 10/10 at its worst. Also c/o associated blurred vision, photophobia, nausea, and vomiting. Patient has had two episodes of NB/NB emesis. Denied any focal weakness. Says she still has some residual right face numbness from old stroke 10 years ago. This AM, feels sx better; denies focal weakness, numbness, slurred speech or vision c/o. at home, with recent health issues. on ASA, statin. sees cardiology DR Segovia. PMD : Dr. Amando Bains. 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 hypoattenuation deep white matter L; IMPRESSION: Hypodense areas within the left occipital lobe and left cerebellum suspicious for acute/subacute infarcts. The chronicity of these infarcts is uncertain and MRI follow-up is recommended. Please see above discussion. AP : suspect new left sided INDUSTRY ANALYST infarct , uncontroleld hypertension; r/o cardioembolic phenomena check MRI MRA H /neck conservative BP ; may maintain between 160-190 acutely, then adjust 25% of baseline in AM Added plavix to ASA in meantime, cont statin CARDIOLOGY consult- DR Segovia , needs ECHO possible ELLIOTT/bubble, holter/+/- Loop check b12/TSH /A1c rehab/pT consult swallowing consult will FU DR COPELAND
[2019-01-02] MEDS ORDERED: CLOPIDOGREL BISULFATE 75 MG TABLET (FP) PO ONE (09:15)
[2019-01-02] MEDS: INSULIN SLIDING SCALE (NOVOLOG) 1 VIAL SQ SCH ×4 (09:16→21:16)
[2019-01-02] MEDS ORDERED: HEPARIN NA (PORCINE) 5,000 UNITS/ML 1ML VIAL ONE (09:45)
[2019-01-02] MEDS: SPIRONOLACTONE 25 MG TABLET (FP) PO SCH (09:45)
[2019-01-02] MEDS: NIFEdipine E.R 60 MG TABLET (UD) PO SCH (09:49)
[2019-01-02] MEDS: DULoxetine HCL 30 MG CAPSULE.DR PO SCH (09:50)
[2019-01-02] MEDS: ASPIRIN COATED 81 MG TABLET.EC PO SCH (09:50)
[2019-01-02] MEDS: ISOSORBIDE MONONITRATE 30 MG TAB.SR.24H (FP) PO SCH (09:50)
[2019-01-02] MEDS: VALSARTAN 160 MG TABLET (UD) PO SCH (09:50)
[2019-01-02] MEDS: HEPARIN NA (PORCINE) 5,000 UNITS/ML 1ML VIAL SQ SCH (09:51)
[2019-01-02] MEDS ORDERED: METOCLOPRAMIDE HCL INJECTION 10 MG/2 ML VIAL ONE (12:44)
[2019-01-02] MEDS ORDERED: METOCLOPRAMIDE HCL INJECTION 10 MG/2 ML VIAL IVPB ONE (12:59)
--- NOTE | 2019-01-02 13:23 | EKG ---
Test Reason : Blood Pressure : / mmHG Vent. Rate : 069 BPM Atrial Rate : 069 BPM P-R Int : 286 ms QRS Dur : 094 ms QT Int : 438 ms P-R-T Axes : 076 -14 011 degrees QTc Int : 469 ms SINUS RHYTHM WITH 1ST DEGREE A-V BLOCK INFERIOR INFARCT , AGE UNDETERMINED CANNOT RULE OUT ANTERIOR INFARCT (CITED ON OR BEFORE 03-JUL-2015) (VS LEAD POSITION CHANGES) ABNORMAL ECG WHEN COMPARED WITH ECG OF 03-JUL-2015 12:06, NO SIGNIFICANT CHANGE WAS FOUND Confirmed by ALINA POWERS MD ([id number]) on 01/02/2019 1:23:24 PM Referred By: DR Tahir DELA CRUZ Confirmed By:ALINA POWERS MD
--- NOTE | 2019-01-02 14:33 | ECHO ---
Name: FAUSTO OLIVARES Exam:Adult Echocardiogram Study Date: 01/02/2019 02:01 PM Age: 78 yrs Reason For Study: R/O SEPTAL DEFECT Height: 62 in Weight: 165 lb BSA: 1.8 m2 MMode/2D Measurements & Calculations IVSd: 1.6 cm Ao root diam: 2.6 cm LVIDd: 3.6 cm LA dimension: 3.3 cm LVIDs: 2.4 cm LVPWd: 1.1 cm EDV(Teich): 53.8 ml LVOT diam: 2.0 cm ESV(Teich): 20.2 ml Doppler Measurements & Calculations MV E max brandon: 105.9 cm/sec MV A max brandon: 122.4 cm/sec MV dec slope: 527.3 cm/sec2 MV E/A: 0.87 Ao V2 max: 194.7 cm/sec LV V1 max P.7 mmHg Ao max P.2 mmHg LV V1 max: 108.0 cm/sec SALUD(V,D): 1.7 cm2 MR max brandon: 427.1 cm/sec PA V2 max: 126.9 cm/sec MR max P.0 mmHg PA max P.4 mmHg PI end-d brandon: 123.0 cm/sec Left Ventricle Mild basal septal hypertrophy. Ejection Fraction = 60-65%. The transmitral spectral Doppler flow celestine teresa is suggestive of impaired LV relaxation. Right Ventricle The right ventricle is normal in size and function. Atria The left atrium is mildly dilated. Right atrial size is normal. Mitral Valve The mitral valve is normal in structure and function. There is no mitral valve stenosis. There is mil d mitral regurgitation. Tricuspid Valve The tricuspid valve is normal in structure and function. There is mild tricuspid regurgitation. Aortic Valve There is mild aortic sclerosis.;. No hemodynamically significant valvular aortic stenosis. Mild aorti c regurgitation. Pulmonic Valve The pulmonic valve is not well seen, but is grossly normal. There is no pulmonic valvular stenosis. M ild pulmonic valvular regurgitation. Great Vessels The aortic root is normal size. Pericardium/Pleura There is no pericardial effusion. Interpretation Summary Mild basal septal hypertrophy. Ejection Fraction = 60-65%. The transmitral spectral Doppler flow pattern is suggestive of impaired LV relaxation. The left atrium is mildly dilated. There is mild mitral regurgitation. There is mild tricuspid regurgitation. There is mild aortic sclerosis.; Mild aortic regurgitation. There is no pericardial effusion. MD Hdez *[place] 01/02/2019 02:33 PM
--- NOTE | 2019-01-02 15:11 | PN ---
Physical Exam: SUBJECTIVE: Patient seen and examined. Headache is 6/10. Numbness to jaw has improved but not gone. Feels nauseous, dry heaving. OBJECTIVE: Vital Signs Period Temp Pulse Resp BP Sys/Mills Pulse Ox Last 24 Hr 98.3 F-98.7 F 61-72 15-18 161-205/49-82 97-100 GENERAL: The patient is awake, alert, and fully oriented, in mild distress due to dry heaves. HEAD: Normal with no signs of trauma. EYES: PERRL, extraocular movements intact, sclera anicteric, conjunctiva clear. No ptosis. Slight droop of right side of mouth which states is basline. ENT: Ears normal, nares patent, oropharynx clear without exudates, moist mucous membranes. LUNGS: Breath sounds equal, clear to auscultation bilaterally, no wheezes, no crackles, no accessory muscle use. HEART: Regular rate and rhythm, S1, S2 ABDOMEN: Soft, nontender, nondistended EXTREMITIES: 2+ pulses, warm, well-perfused, no edema. NEUROLOGICAL: Cranial nerves II through XII grossly intact. Normal speech, steady gait. 5/5 motor, 5/5 sensory all extremities Laboratory Results - last 24 hr 01/01/19 01/01/19 01/01/19 17:30 17:30 17:30 WBC 7.6 RBC 5.11 Hgb 15.8 H Hct 48.1 H MCV 94.2 MCH 31.0 MCHC 32.9 RDW 12.0 Plt Count 215 MPV 11.2 H Absolute Neuts (auto) 4.7 Neutrophils % 62.2 Lymphocytes % 27.8 Monocytes % 7.7 Eosinophils % 2.0 Basophils % 0.3 PT with INR 12.3 INR 1.10 Sodium 139 Potassium 4.2 Chloride 104 Carbon Dioxide 26 Anion Gap 9 BUN 19.0 H Creatinine 0.9 Est GFR (CKD-EPI)AfAm 71.48 Est GFR (CKD-EPI)NonAf 61.67 POC Glucometer Random Glucose 87 Calcium 9.6 Magnesium Total Bilirubin 1.5 H AST 32 ALT 32 Alkaline Phosphatase 74 Creatine Kinase 120 Troponin I Cancelled Total Protein 7.2 Albumin 4.4 Triglycerides 69 Cholesterol 188 Total LDL Cholesterol 119 H HDL Cholesterol 56 TSH Urine Color Urine Appearance Urine pH Urine Protein Urine Glucose (UA) Urine Ketones Urine Blood Urine Nitrite Urine Bilirubin Urine Urobilinogen Ur Leukocyte Esterase Urine RBC Urine WBC Ur Transition Epith Cell Blood Type Antibody Screen 01/01/19 01/01/19 01/01/19 17:30 17:30 17:30 WBC RBC Hgb Hct MCV MCH MCHC RDW Plt Count MPV Absolute Neuts (auto) Neutrophils % Lymphocytes % Monocytes % Eosinophils % Basophils % PT with INR INR Sodium Potassium Chloride Carbon Dioxide Anion Gap BUN Creatinine Est GFR (CKD-EPI)AfAm Est GFR (CKD-EPI)NonAf POC Glucometer Random Glucose Calcium Magnesium Total Bilirubin AST ALT Alkaline Phosphatase Creatine Kinase Troponin I < 0.03 Total Protein Albumin Triglycerides Cholesterol Total LDL Cholesterol HDL Cholesterol TSH Urine Color Yellow Urine Appearance Clear Urine pH 6.5 Urine Protein Negative Urine Glucose (UA) 2+ H Urine Ketones Trace Urine Blood Negative Urine Nitrite Negative Urine Bilirubin Negative Urine Urobilinogen 0.2 Ur Leukocyte Esterase 2+ Urine RBC No Result Required. Urine WBC 2-5 Ur Transition Epith Cell Few Blood Type A POSITIVE Antibody Screen Negative 01/01/19 01/01/19 01/01/19 17:30 17:40 21:48 WBC RBC Hgb Hct MCV MCH MCHC RDW Plt Count MPV Absolute Neuts (auto) Neutrophils % Lymphocytes % Monocytes % Eosinophils % Basophils % PT with INR INR Sodium Potassium Chloride Carbon Dioxide Anion Gap BUN Creatinine Est GFR (CKD-EPI)AfAm Est GFR (CKD-EPI)NonAf POC Glucometer 89 Random Glucose Calcium Magnesium Total Bilirubin AST ALT Alkaline Phosphatase Creatine Kinase Cancelled Troponin I Total Protein Albumin Triglycerides Cholesterol Total LDL Cholesterol HDL Cholesterol TSH Urine Color Urine Appearance Urine pH Urine Protein Urine Glucose (UA) Urine Ketones Urine Blood Urine Nitrite Urine Bilirubin Urine Urobilinogen Ur Leukocyte Esterase Urine RBC Urine WBC Ur Transition Epith Cell Blood Type A POSITIVE Antibody Screen 01/02/19 01/02/19 06:00 06:00 WBC 6.2 RBC 5.04 Hgb 16.0 H Hct 47.8 H MCV 94.8 MCH 31.8 MCHC 33.5 RDW 12.1 Plt Count 195 MPV 11.4 H Absolute Neuts (auto) Neutrophils % Lymphocytes % Monocytes % Eosinophils % Basophils % PT with INR INR Sodium 140 Potassium 4.1 Chloride 105 Carbon Dioxide 24 Anion Gap 11 BUN 13.0 Creatinine 0.8 Est GFR (CKD-EPI)AfAm 82.42 Est GFR (CKD-EPI)NonAf 71.11 POC Glucometer Random Glucose 80 Calcium 9.4 Magnesium 2.4 Total Bilirubin AST ALT Alkaline Phosphatase Creatine Kinase Troponin I Total Protein Albumin Triglycerides Cholesterol Total LDL Cholesterol HDL Cholesterol TSH 0.66 Urine Color Urine Appearance Urine pH Urine Protein Urine Glucose (UA) Urine Ketones Urine Blood Urine Nitrite Urine Bilirubin Urine Urobilinogen Ur Leukocyte Esterase Urine RBC Urine WBC Ur Transition Epith Cell Blood Type Antibody Screen Current Medications Generic Name Dose Route Start Last Admin Trade Name Freq PRN Reason Stop Dose Admin Aspirin 81 mg 01/02/19 10:00 01/02/19 09:50 Ecotrin - PO 81 mg DAILY THOMAS Administration Atorvastatin Calcium 40 mg 01/01/19 22:00 01/01/19 21:58 Lipitor - PO 40 mg HS THOMAS Administration Clopidogrel Bisulfate 75 mg 01/03/19 10:00 Plavix - PO DAILY THOMAS Duloxetine HCl 30 mg 01/02/19 10:00 01/02/19 09:50 Cymbalta - PO 30 mg DAILY THOMAS Administration Heparin Sodium (Porcine) 5,000 unit 01/01/19 22:00 01/02/19 09:51 Heparin - SQ 5,000 unit BID THOMAS Administration Sodium Chloride 1,000 mls @ 42 mls/hr 01/01/19 19:15 01/01/19 20:00 Normal Saline - IV 42 mls/hr ASDIR THOMAS Administration Insulin Aspart 1 vial 01/01/19 22:00 01/02/19 12:30 Novolog Vial Sliding Scale - SQ Not Given ACHS THOMAS Protocol Isosorbide Mononitrate 30 mg 01/02/19 10:00 01/02/19 09:50 Imdur - PO 30 mg DAILY THOMAS Administration Nifedipine 120 mg 01/02/19 10:00 01/02/19 09:49 Procardia Xl - PO 120 mg DAILY THOMAS Administration Spironolactone 50 mg 01/02/19 10:00 01/02/19 09:45 Aldactone - PO 50 mg DAILY THOMAS Administration Trimethobenzamide HCl 200 mg 01/02/19 15:12 Tigan Injection - IM Q8H PRN NAUSEA Valsartan 320 mg 01/02/19 10:00 01/02/19 09:50 Diovan - PO 320 mg DAILY THOMAS Administration PCP: Dr. Amando Bains ASSESSMENT/PLAN 78 year-old female with a PMH significant for HTN, HLD, CAD s/p DC s/p stent, CVA 2008, asthma, Type II IDDM, PVD, and left breast cancer. Presented with stroke-like symptoms outside the window for TPA. Found to have acute left-side CVA. 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 Garrison, these symptoms can be seen in TELECOMMUNICATIONS PROJECT MANAGER stroke, but if continues get repeat head CT --continue ASA, Plavix, Lipitor --neuro checks q1h --MRI/MRA head and neck tomorrow Hypertensive emergency --BP 205/80 with acute CVA on admission --per neuro, maintain between 160-190 acutely, then adjust 25% of baseline in am --reassess BP in morning prior to giving anti-hypertensives (nifedipine, valsartan) and adjust dosing accordingly Coronary artery disease s/p stent --continue ASA, statin, isosorbide, Diastolic heart failure --Echo: EF 60-65%, impaired relaxation; RV normal; LAE; mild MR; mild TR; mild AI; mild PI --appears euvolemic --continue spironolactone Type II IDDM --Novolog sliding scale coverage Anxiety --continue Cymbalta FEN Fluids: NS@42mL/hr Electrolytes: replete as indicated Nutrition: NPO for now due to nausea; ice chips; speech and swallow done, can tolerate diabetic regular, thin DVT prophylaxis: subq heparin Physical therapy Dispo: continues to require inpatient care. Full code. Physical therapy Visit type - Emergency Visit Emergency Visit: Yes ED Registration Date: 01/01/19 Care time: The patient presented to the Emergency Department on the above date and was hospitalized for further evaluation of their emergent condition. - New Patient This patient is new to me today: Yes Date on this admission: 01/02/19 - Critical Care Critical Care patient: No
--- NOTE | 2019-01-02 15:11 | CONSULT ---
Admitting History and Physical - Primary Care Physician PCP: Rachel Gallegos - Admission History of Present Illness: Per EMR- 78-year-old female, with a past medical history of asthma, CAD, LT breast CA, CVA, IDDM, diabetic neuropathy, HLD, GERD, hemorrhoids, diverticulitis, who presents to the ED with stroke-like symptoms, with severe headache, transient visual loss, and tongue heaviness, associated blurred vision, photophobia, nausea, and vomiting. Pt reports residual right face numbness from old stroke 10 years ago. 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 Cardiovascular: Yes: CAD, HTN, Hyperlipdemia Pulmonary: Yes: Asthma Endocrine: Yes: Diabetes Mellitus - Smoking History Smoking history: Never smoked Have you smoked in the past 12 months: No Aproximately how many cigarettes per day: 0 - Alcohol/Substance Use Hx Alcohol Use: No - Social History ADL: Independent History of Recent Travel: No History - Admission Reason For Visit: HEADACHE & FACE NUMBNESS - Diagnostics X-ray: Report Reviewed CT Scan: Report Reviewed MRI: Report Reviewed (acute Left STATIONARY ENGINEER APPRENTICE infarct-acute infarct involving left hippocampus, occipital lobe, medial aspect of the left precuneus, low signal intensity in the vascular territory of the left posterior cerebral artery) Other: Report Reviewed (carotid u/s) - General Mental Status: Alert and Oriented, Awake and Alert, Able to Follow Commands Attention: Intact Ability to Follow Directions: Excellent Head/Neck Control: WFL - Hearing Hearing: Functional Speech Evaluation - Communication Primary Language: GUAMANIAN Secondary Language: KHMER (fluent ESL) Communication: Yes: Within Normal Limits Oral Expression Ability: Yes: No Impairment - Speech Production Able to Make Needs Known: Yes: WNL Intelligibility: Yes: WNL - Speech Characteristics Voice Loudness: Normal Voice Pitch: Yes: Normal Voice Phonatory-based Quality: Yes: Normal Nasal Resonance: Normal Articulation: Yes: Precise Rate of Speech: Intact - Language/Auditory Comprehension Follows: Yes: 2 Stage Simple Commands Observation: Able to respond to yes/no queries: Yes, Yes/No Confusion: No, Comprehends Conversational Speech: Yes - Language/Verbal Expression Able to Respond to Simple Queries: Yes: WNL Able to Communicate Wants and Needs: Yes: WNL Functional Communication Status: Yes: WNL - Memory/Perception 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 Memory: Yes: WNL Short Term Memory: Yes: WNL - Swallow Evaluation/Bedside Assessment Current Nutritional Intake: NPO Oral Secretions: Yes: WFL Dentition: Yes: Adequate Facial Symmetry at Rest: Symmetrical, Facial Droop Right (slight) Facial Symmetry on Retraction: Symmetrical Facial Movement: Controlled Against Resistance Opening: Normal Against Resistance Closing: Normal Pucker Lips: Normal Smile: Normal Lingual Movement: Normal, Symmetric Lingual Speed of Movement: Normal Lingual Movement Strgth Against Opposition: Normal Lingual Movement Characteristics: Normal Velopharyngeal Movement: Normal Laryngeal Elevation: WFL Laryngeal Movement: Able to Palpate Rate of Intake: WFL Bolus Size: WFL Labial Seal: WFL Chewing: WFL Oral Prep Time: WFL A-P Transit: WFL Timing of Swallow: WFL Coughing/Throat Clear: No Change in Voice: No Recommendations - Speech Evaluation, Impression/Plan Impression: Acute infarct involving the left posterior cerebral artery region. Speech, swallowing, cognition, language function are intact. - Dysphagia Impressions/Plan Swallowing Skills: [facility] Dysphagia Impressions: No Impairment *Silent aspiration: cannot be R/O at bedside Dysphagia Treatment Plan: Facilitative Feeding, Safe Rate, Elevate HOB during feed, OOB for meals (when medically appropriate) - Recommendations Diet Consistency: Regular (Diabetic diet, per pt.) Medication Administration: Whole with water Liquids: Thin Liquids
[2019-01-02] MEDS: TRIMETHOBENZAMIDE HCL 200MG/2ML INJ IM PRN (16:51)
--- NOTE | 2019-01-02 17:20 | CON.CARD ---
Cardiology Consult (text) - Consultation Consultation Note: Chief Complaint: facial numbness, speech changes, JACK, n/v History of Present Illness: 78 year old woman with a history of HTN, HLD, DM, CAD s/p pci x2 (most recent was shawna 2012), CVA, breast cancer here with facial numbness, speech changes, JACK , n/v. No cp sob palps dizzy loc pnd orthopnea. LE edema stable with diuretic. Found to have acute cva. Sees dr stevens for cardio. - History Source History Provided By: Patient, Family Member Limitations to Obtaining History: No Limitations - Past Medical History per hpi - Alcohol/Substance Use Hx Alcohol Use: No - Smoking History Smoking history: Never smoked Have you smoked in the past 12 months: No Aproximately how many cigarettes per day: 0 - Social History Usual Living Arrangement: With Spouse ADL: Independent History of Recent Travel: No Home Medications - Allergies Allergies/Adverse Reactions: Allergies Allergy/AdvReac Type Severity Reaction Status Date / Time No Known Allergies Allergy Verified 11/02/17 12:00 - Home Medications Home Medications Medication Instructions Recorded Isosorbide Mononitrate 30 mg PO DAILY 07/03/15 Sitagliptin Phos/Metformin HCl 1 tab PO BID 07/03/15 [Janumet 50-500 mg Tablet] Telmisartan [Micardis] 80 mg PO DAILY 07/03/15 Nifedipine ER [Procardia XL -] 120 mg PO DAILY #30 tab.er.24 07/06/15 Duloxetine HCl 30 mg PO DAILY 11/02/17 Insulin Lispro Protamin/Lispro 100 unit SQ ASDIR 11/02/17 [Humalog Mix 75-25 Kwikpen] Spironolactone 50 mg PO DAILY 11/02/17 Aspirin [Aspirin EC] 81 mg PO DAILY 01/01/19 Lubiprostone [Amitiza] 8 mcg PO BID 01/01/19 Zolpidem Tartrate [Ambien] 10 mg PO HS 01/01/19 Family Disease History - Family Disease History Family History: Denies Review of Systems per hpi; all others normal - Risk Factors Known Risk Factors: Yes: Diabetes Mellitus, Hypercholesterolemia, Hypertension, Prior [place] /Stroke Vital Signs: Vital Signs Period Temp Pulse Resp BP Sys/Mills Pulse Ox Last 24 Hr 98.3 F-98.6 F 61-74 15-18 150-200/49-82 96-100 Constitutional: Yes: Well Nourished, No Distress, Calm Eyes: Yes: WNL, Conjunctiva Clear HENT: Yes: WNL, Atraumatic, Normocephalic Neck: Yes: WNL, Supple, Trachea Midline Respiratory: Yes: WNL, Regular, CTA Bilaterally. No: Rales, Rhonchi, Wheezes Gastrointestinal: Yes: WNL, Normal Bowel Sounds, Soft. No: Distention, Tenderness Renal/: Yes: WNL Cardiovascular: Yes: WNL, Regular Rate and Rhythm. No: Bradycardia, Tachycardia , Pulse Irregular, Gallop, Rub, Varicosities JVD: No Carotid Bruit: No PMI: Non-Displaced Heart Sounds: Yes: S1, S2. No: S3, S4, Clicks, Gallop, Rub, Bruit Murmur: No: Systolic Murmur, Diastolic Murmur Edema: No Peripheral Pulses WNL: Yes Peripheral Pulses: 2+ Left Doralis Pedis, 2+ Right Dorsalis Pedis Integumentary: Yes: WNL Neurological: Yes: [email or web address] Laboratory Last Values WBC 6.2 K/mm3 (4.0-10.8) 01/02/19 06:00 RBC 5.04 M/mm3 (3.60-5.2) 01/02/19 06:00 Hgb 16.0 GM/dl (10.7-15.3) H 01/02/19 06:00 Hct 47.8 % (32.4-45.2) H 01/02/19 06:00 MCV 94.8 fl (80-96) 01/02/19 06:00 MCH 31.8 pg (25.7-33.7) 01/02/19 06:00 MCHC 33.5 g/dl (32.0-36.0) 01/02/19 06:00 RDW 12.1 % (11.6-15.6) 01/02/19 06:00 Plt Count 195 K/MM3 (134-434) 01/02/19 06:00 MPV 11.4 fl (7.5-11.1) H 01/02/19 06:00 Absolute Neuts (auto) 4.7 K/mm3 01/01/19 17:30 Neutrophils % 62.2 % (42.8-82.8) 01/01/19 17:30 Lymphocytes % 27.8 % (8-40) 01/01/19 17:30 Monocytes % 7.7 % (3.8-10.2) 01/01/19 17:30 Eosinophils % 2.0 % (0-4.5) 01/01/19 17:30 Basophils % 0.3 % (0-2.0) 01/01/19 17:30 PT with INR 12.3 SEC (10.2-13.0) 01/01/19 17:30 INR 1.10 (0.82-1.09) 01/01/19 17:30 Sodium 140 mmol/L (136-145) 01/02/19 06:00 Potassium 4.1 mmol/L (3.5-5.1) 01/02/19 06:00 Chloride 105 mmol/L (98-107) 01/02/19 06:00 Carbon Dioxide 24 mmol/L (21-32) 01/02/19 06:00 Anion Gap 11 MMOL/L (8-16) 01/02/19 06:00 BUN 13.0 mg/dl (7-18) 01/02/19 06:00 Creatinine 0.8 mg/dl (0.55-1.3) 01/02/19 06:00 Est GFR (CKD-EPI)AfAm 82.42 01/02/19 06:00 Est GFR (CKD-EPI)NonAf 71.11 01/02/19 06:00 POC Glucometer 89 UNITS (80-120) 01/01/19 21:48 Random Glucose 80 mg/dl (74-106) 01/02/19 06:00 Calcium 9.4 mg/dl (8.5-10) 01/02/19 06:00 Magnesium 2.4 mg/dL (1.8-2.4) 01/02/19 06:00 Total Bilirubin 1.5 mg/dl (0.2-1) H 01/01/19 17:30 AST 32 U/L (15-37) 01/01/19 17:30 ALT 32 U/L (13-61) 01/01/19 17:30 Alkaline Phosphatase 74 U/L (45-117) 01/01/19 17:30 Creatine Kinase 120 U/L (26-192) 01/01/19 17:30 Troponin I < 0.03 ng/ml (0.00-0.05) 01/01/19 17:30 Total Protein 7.2 g/dl (6.4-8.2) 01/01/19 17:30 Albumin 4.4 g/dl (3.4-5.0) 01/01/19 17:30 Triglycerides 69 mg/dl (0-150) 01/01/19 17:30 Cholesterol 188 mg/dl (50-200) 01/01/19 17:30 Total LDL Cholesterol 119 mg/dL (5-100) H 01/01/19 17:30 HDL Cholesterol 56 mg/dl (40-60) 01/01/19 17:30 Vitamin B12 760 pg/ml (193-986) 01/02/19 06:00 TSH 0.66 uIU/ml (0.358-3.74) 01/02/19 06:00 Urine Color Yellow 01/01/19 17:30 Urine Appearance Clear 01/01/19 17:30 Urine pH 6.5 (4.5-8) 01/01/19 17:30 Urine Protein Negative (NEGATIVE) 01/01/19 17:30 Urine Glucose (UA) 2+ (NEGATIVE) H 01/01/19 17:30 Urine Ketones Trace (NEGATIVE) 01/01/19 17:30 Urine Blood Negative (NEGATIVE) 01/01/19 17:30 Urine Nitrite Negative (NEGATIVE) 01/01/19 17:30 Urine Bilirubin Negative (NEGATIVE) 01/01/19 17:30 Urine Urobilinogen 0.2 (0.2-1.0) 01/01/19 17:30 Ur Leukocyte Esterase 2+ (NEGATIVE) 01/01/19 17:30 Urine RBC No Result Required. 01/01/19 17:30 Urine WBC 2-5 (NEGATIVE) 01/01/19 17:30 Ur Transition Epith Cell Few /hpf 01/01/19 17:30 Blood Type A POSITIVE 01/01/19 17:40 Antibody Screen Negative 01/01/19 17:30 ecg: sr, 1st avb, nl qtc, no ischemic changes tele: sr mibi 08/2015: no ischemia, nl lvef echo 12/2018: nl lv/rv, mild lae, mild mr/tr/ar carotids 12/2018: no sig stenosis a/p: 78 year old woman with a history of HTN, HLD, DM, CAD s/p pci x2 (most recent was shawna 2012), CVA, breast cancer here with facial numbness, speech changes, JACK, n/v. acute cva, hx cva: -neuro following -echo, carotids, tele unremarkable -if tele benign here would need outpt event monitor/loop recorder to r/o occult afib -cont statin, asa. plavix added by neuro. htn: -elevated, bp goals per neuro in setting of acute cva -cont current meds, titrate as needed hld: -cont statin CAD with remote pci: -stable, no signs acs -recent echo and mibi unremarkable -cont asa, statin, imdur, bb meds le edema/venous insuff: -stable, cont home aldactone
--- NOTE | 2019-01-02 20:37 | HOSP ---
Subjective - Review of Symptoms Events since last encounter: Patient had nausea and dry heaving earlier this evening which improved after dose of Tigan. She awoke from a nap at around 8:00p and started heaving again. At the same time, her HR on the monitor jumped to the 120s. Stat ECG showed atrial fibrillation @88bpm. BP stable. Patient seen and examined General/Neuro: A&Ox3; no change in mental status; speech clear, headache improved now 5/10; 5/5 motor and sensory in all extremities Pulm: Lungs CTA CV: S1, S2, irregular Lower Ext: venous stasis changes L>R, vascular wound to lateral malleolus (seen on earlier exam) A&P Newly diagnosed afib with RVR Discussed with neuro and cardiology --no anti-coagulation for three days --start Toprol XL 25mg daily in am; watch BP closely --CT head negative for bleeding or acute change from earlier study --continue telemetry monitoring Physical Examination Vital Signs: Vital Signs Temperature 98.4 F 01/02/19 14:00 Pulse Rate 74 01/02/19 14:00 Respiratory Rate 18 01/02/19 14:00 Blood Pressure 150/58 L 01/02/19 14:00 O2 Sat by Pulse Oximetry (%) 96 01/02/19 14:00 Labs: CBC, BMP 01/02/19 06:00 01/02/19 06:00
[2019-01-02] MEDS: ATORVASTATIN CA 40 MG TABLET (FP) PO SCH (21:27)
[2019-01-03] MEDS: TRIMETHOBENZAMIDE HCL 200MG/2ML INJ IM PRN (02:26)
[2019-01-03] MEDS ORDERED: INSULIN (NOVOLOG) ASPART 100 UNITS/ML 10ML VIAL ONE (06:52)
[2019-01-03] MEDS: INSULIN SLIDING SCALE (NOVOLOG) 1 VIAL SQ SCH ×4 (06:59→22:26)
[2019-01-03 08:44] LABS: ALBUMIN 4.3 g/dl (3.4-5.0); CALCIUM 9.5 mg/dl (8.5-10); CREATININE 0.8 mg/dl (0.55-1.3); HEMATOCRIT 49.9 % (32.4-45.2); HEMOGLOBIN 16.6 GM/dl (10.7-15.3); MAGNESIUM 2.1 mg/dL (1.8-2.4); MCH 31.6 pg (25.7-33.7); MCHC 33.2 g/dl (32.0-36.0); MEAN PLT VOLUME 11.3 fl (7.5-11.1); PLATELET COUNT 231 K/MM3 (134-434); POTASSIUM 3.6 mmol/L (3.5-5.1); RBC 5.25 M/mm3 (3.60-5.2); RDW 12.2 % (11.6-15.6); TOT PROT 7.6 g/dl (6.4-8.2); WHITE BLOOD COUNT 12.1 K/mm3 (4.0-10.8)
[2019-01-03 08:49] LABS: CHOLESTEROL 185 mg/dl (50-200); HDL CHOLESTEROL 64 mg/dl (40-60); LDL CHOLESTEROL (ONLY DFH) 108 mg/dl (5-100); TRIGLYCERIDES 64 mg/dl (0-150)
--- NOTE | 2019-01-03 09:31 | PN ---
Physical Exam: SUBJECTIVE: Patient seen and examined at bedside. Pt reports nausea/vomiting and intermittent dry cough, bilateral blurred vision, denies double vision, JACK, dizziness,cp,sob, palpitations, abdominal pain,diarrhea or urinary symptoms. OBJECTIVE: Vital Signs Period Temp Pulse Resp BP Sys/Mills Pulse Ox Last 24 Hr 97.7 F-98.5 F 62-114 15-18 141-179/58-73 96-100 GENERAL: The patient is awake, alert, and fully oriented, in no acute distress. HEAD: Normal with no signs of trauma. EYES: PERRL, extraocular movements intact, sclera anicteric, conjunctiva clear. No ptosis. ENT: Ears normal, nares patent, oropharynx clear without exudates, moist mucous membranes. NECK: Trachea midline, full range of motion, supple. LUNGS: Breath sounds equal, clear to auscultation bilaterally, no wheezes, no crackles, no accessory muscle use. HEART: Regular rate and rhythm, S1, S2 without murmur, rub or gallop. ABDOMEN: Soft, nontender, nondistended, normoactive bowel sounds, no guarding, no rebound, no hepatosplenomegaly, no masses. EXTREMITIES: 2+ pulses, warm, well-perfused, no edema. NEUROLOGICAL: Cranial nerves II through XII grossly intact. Normal speech, gait not observed. PSYCH: Normal mood, normal affect. SKIN: Warm, dry, normal turgor, no rashes,RLE with healing skin abrasion, dsg intact Laboratory Results - last 24 hr 01/01/19 01/02/19 01/02/19 17:30 06:00 06:00 WBC RBC Hgb Hct MCV MCH MCHC RDW Plt Count MPV Absolute Neuts (auto) Neutrophils % Lymphocytes % Sodium 140 Potassium 4.1 Chloride 105 Carbon Dioxide 24 Anion Gap 11 BUN 13.0 Creatinine 0.8 Est GFR (CKD-EPI)AfAm 82.42 Est GFR (CKD-EPI)NonAf 71.11 Random Glucose 80 Hemoglobin A1c % 6.0 Lactic Acid Calcium 9.4 Magnesium 2.4 Total Bilirubin AST ALT Alkaline Phosphatase Creatine Kinase Cancelled Total Protein Albumin Triglycerides Cholesterol Total LDL Cholesterol HDL Cholesterol Vitamin B12 760 TSH 0.66 01/02/19 01/03/19 01/03/19 17:50 07:44 07:44 WBC 12.1 H RBC 5.25 H Hgb 16.6 H Hct 49.9 H MCV 95.0 MCH 31.6 MCHC 33.2 RDW 12.2 Plt Count 231 MPV 11.3 H Absolute Neuts (auto) 11.2 Neutrophils % No Result Required. Lymphocytes % No Result Required. Sodium Potassium Chloride Carbon Dioxide Anion Gap BUN Creatinine Est GFR (CKD-EPI)AfAm Est GFR (CKD-EPI)NonAf Random Glucose Hemoglobin A1c % Lactic Acid 1.5 Calcium Magnesium Total Bilirubin AST ALT Alkaline Phosphatase Creatine Kinase Total Protein Albumin Triglycerides 64 Cholesterol 185 Total LDL Cholesterol 108 H HDL Cholesterol 64 H Vitamin B12 TSH 01/03/19 07:44 WBC RBC Hgb Hct MCV MCH MCHC RDW Plt Count MPV Absolute Neuts (auto) Neutrophils % Lymphocytes % Sodium 139 Potassium 3.6 Chloride 104 Carbon Dioxide 17 L Anion Gap 18 H BUN 17.0 Creatinine 0.8 Est GFR (CKD-EPI)AfAm 82.42 Est GFR (CKD-EPI)NonAf 71.11 Random Glucose 150 H Hemoglobin A1c % Lactic Acid Calcium 9.5 Magnesium 2.1 Total Bilirubin 2.0 H AST 41 H ALT 39 Alkaline Phosphatase 73 Creatine Kinase Total Protein 7.6 Albumin 4.3 Triglycerides Cholesterol Total LDL Cholesterol HDL Cholesterol Vitamin B12 TSH Active Medications Generic Name Dose Route Start Last Admin Trade Name Freq PRN Reason Stop Dose Admin Aspirin 81 mg 01/02/19 10:00 01/02/19 09:50 Ecotrin - PO 81 mg DAILY THOMAS Administration Atorvastatin Calcium 40 mg 01/01/19 22:00 01/02/19 21:27 Lipitor - PO 40 mg HS THOMAS Administration Clopidogrel Bisulfate 75 mg 01/03/19 10:00 Plavix - PO DAILY THOMAS Duloxetine HCl 30 mg 01/02/19 10:00 01/02/19 09:50 Cymbalta - PO 30 mg DAILY THOMAS Administration Sodium Chloride 1,000 mls @ 42 mls/hr 01/01/19 19:15 01/02/19 08:00 Normal Saline - IV 42 mls/hr ASDIR THOMAS Administration Insulin Aspart 1 vial 01/01/19 22:00 01/03/19 06:59 Novolog Vial Sliding Scale - SQ 2 units ACHS THOMAS Administration Protocol Isosorbide Mononitrate 30 mg 01/02/19 10:00 01/02/19 09:50 Imdur - PO 30 mg DAILY THOMAS Administration Nifedipine 120 mg 01/02/19 10:00 01/02/19 09:49 Procardia Xl - PO 120 mg DAILY THOMAS Administration Spironolactone 50 mg 01/02/19 10:00 01/02/19 09:45 Aldactone - PO 50 mg DAILY THOMAS Administration Trimethobenzamide HCl 200 mg 01/02/19 15:12 01/03/19 02:26 Tigan Injection - IM 200 mg Q8H PRN Administration NAUSEA Valsartan 320 mg 01/02/19 10:00 01/02/19 09:50 Diovan - PO 320 mg DAILY THOMAS Administration ASSESSMENT/PLAN: 78 year-old female with a PMH significant for HTN, HLD, CAD s/p VT s/p stent, CVA 2008, asthma, Type II IDDM, PVD, and left breast cancer. Presented with stroke-like symptoms outside the window for TPA. Found to have acute left-side CVA. *Acute left-sided CVA -MRI brain: acute infarct involving left hippocampus, occipital lobe, medial aspect of the left precuneus, low signal intensity in the vascular territory of the left [employer]OL[employer] -US carotids: +plaque left common carotid, no hemodynamically significant stenosis - Neuro following - Rpt CT head - No significant change s when compared to previous study on 01/01 - fasting lipids reviewed - will cont on ASA, Plavix, Lipitor -neuro checks q1h -MRI/MRA head and neck ordered -PT eval - Echo done: EF 60-65%, impaired relaxation; RV normal; LAE; mild MR; mild TR; mild AI; mild PI -no focal deficits - Swallowing eval done, rec regular diet, aspiration precautions * New onset of A- FIB with RVR, now SR with 1st degree AVB - started on Toprol as per card rec - NO AC for 3 days as per card and neuro - tele monitoring - Echo reviewed - TSH- WNL - will repeat EKG - card consulted *Hypertensive emergency -BP 205/80 with acute CVA on admission -per neuro, maintain between 160-190 acutely, then adjust 25% of baseline in am -will resume on home meds Nifedipine, Valsartan,Imdur and Aldactone will adjust dosing accordingly *Coronary artery disease s/p stent, asymptomatic -continue ASA, statin, isosorbide, - EKG SR with first degree AVB *Diastolic heart failure-appears euvolemic -Echo: EF 60-65%, impaired relaxation; RV normal; LAE; mild MR; mild TR; mild AI ; mild PI -continue spironolactone, ARB *Type II IDDM -Novolog sliding scale coverage -FS monitoring - Hgb ALC 6 - consistent carb diet *Anxiety -continue Cymbalta * Nausea and vomiting -will cont on Tigan (prolonged QT interval, Zofran contraindicated) -diet switched to clears, will advance as tolerated - added PPI - T. Bili 1.5>2- asymptomatic - AST 41, ALT and ALK- WNL - will f/u on labs * Mild leukocytosis - afebrile, wbc 6.2>12.1, Anion Gap 18 - UA neg - CxR ordered -BC ordered -will f/u on labs *FEN Fluids: NS@42mL/hr Electrolytes: replete as indicated Nutrition: on clears, will advance diet as tolerated, swallowing eval done. DVT prophylaxis: SCD's, holding off AC in view of acute CVA as per neuro and cardiology Physical therapy Dispo: continues to require inpatient care. Full code. Visit type - Emergency Visit Emergency Visit: Yes ED Registration Date: 01/01/19 Care time: The patient presented to the Emergency Department on the above date and was hospitalized for further evaluation of their emergent condition. - New Patient This patient is new to me today: Yes Date on this admission: 01/04/19 - Critical Care Critical Care patient: No
[2019-01-03 09:35] LABS: PLATELET ESTIMATE ADEQUATE
[2019-01-03] MEDS ORDERED: CLOPIDOGREL BISULFATE 75 MG TABLET (FP) PO SCH (10:00)
[2019-01-03] MEDS ORDERED: PANTOPRAZOLE SODIUM 40 MG VIAL IVPUSH ONE (10:06)
[2019-01-03] MEDS: VALSARTAN 160 MG TABLET (UD) PO SCH ×2 (10:30→10:45)
[2019-01-03] MEDS: metoPROLOL SUCCINATE 25 MG TAB.SR.24H (FP) PO SCH (10:30)
[2019-01-03] MEDS: ASPIRIN COATED 81 MG TABLET.EC PO SCH (10:30)
[2019-01-03] MEDS: DULoxetine HCL 30 MG CAPSULE.DR PO SCH (10:30)
[2019-01-03] MEDS: NIFEdipine E.R 60 MG TABLET (UD) PO SCH ×2 (10:30→10:46)
[2019-01-03] MEDS: ISOSORBIDE MONONITRATE 30 MG TAB.SR.24H (FP) PO SCH (10:30)
[2019-01-03] MEDS: SPIRONOLACTONE 25 MG TABLET (FP) PO SCH (10:35)
--- NOTE | 2019-01-03 11:22 | PN ---
Progress Note (short form) - Note Progress Note: 78 year-old female c/o waking up this morning around 6am on 01/01/19 with severe headache, transient visual loss, and tongue heaviness. Headache was rated 10/10 at its worst. Also c/o associated blurred vision, photophobia, nausea, and vomiting. Patient has had two episodes of NB/NB emesis. Denied any focal weakness. Says she still has some residual right face numbness from old stroke 10 years ago. This AM, feels sx better; denies focal weakness, numbness, slurred speech or vision c/o. at home, with recent health issues. on ASA, statin. sees cardiology DR Segovia. PMD : Dr. Amando Bains. FU : MRI noted found to have Afib yesterday + N/V -yesterday, rpt HD CT -no change STUDIES: HD CT to my eye suspicious for evolving L [employer] infarct, and ? hypoattenuation deep white matter L; IMPRESSION: Hypodense areas within the left occipital lobe and left cerebellum suspicious for acute/subacute infarcts. The chronicity of these infarcts is uncertain and MRI follow-up is recommended. Please see above discussion. 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 Cardio/Vascular: Yes: CAD, HTN, Hyperlipdemia Pulmonary: Yes: Asthma Endocrine: Yes: Diabetes Mellitus - Alcohol/Substance Use Hx Alcohol Use: No - Smoking History Smoking history: Never smoked Have you smoked in the past 12 months: No Aproximately how many cigarettes per day: 0 - Social History Usual Living Arrangement: With Spouse ADL: Independent History of Recent Travel: No Home Medications - Allergies Allergies/Adverse Reactions: Allergies Allergy/AdvReac Type Severity Reaction Status Date / Time No Known Allergies Allergy Verified 11/02/17 12:00 - Home Medications Home Medications: Ambulatory Orders Isosorbide Mononitrate 30 mg PO DAILY 07/03/15 Sitagliptin Phos/Metformin HCl [Janumet 50-500 mg Tablet] 1 tab PO BID 07/03/15 Telmisartan [Micardis] 80 mg PO DAILY 07/03/15 Nifedipine ER [Procardia XL -] 120 mg PO DAILY #30 tab.er.24 07/06/15 Duloxetine HCl 30 mg PO DAILY 11/02/17 Insulin Lispro Protamin/Lispro [Humalog Mix 75-25 Kwikpen] 100 unit SQ ASDIR 06/10 Spironolactone 50 mg PO DAILY 11/02/17 Aspirin [Aspirin EC] 81 mg PO DAILY 01/01/19 Lubiprostone [Amitiza] 8 mcg PO BID 01/01/19 Zolpidem Tartrate [Ambien] 10 mg PO HS 01/01/19 Physical Exam-Neuro Vital Signs: Vital Signs Temperature 98.5 F 01/03/19 06:00 Pulse Rate 98 H 01/03/19 06:00 Respiratory Rate 18 01/03/19 08:24 Blood Pressure 160/64 01/03/19 06:00 O2 Sat by Pulse Oximetry (%) 100 01/03/19 08:24 Labs: CBC, BMP 01/02/19 06:00 01/02/19 06:00 INR, PTT INR 1.10 (0.82-1.09) 01/01/19 17:30 - Neuro Exam Level Of Consciousness: Yes: Alert (Awake, Alert, EOMI, no clear field cut, min R facial, no drift, no focal weakness, reflexes trace throughout) Imaging - Results Cat Scan: Report Reviewed, Image Reviewed Problem List - Problems (1) CVA (cerebral vascular accident) Code(s): I63.9 - CEREBRAL INFARCTION, UNSPECIFIED Qualifiers: CVA mechanism: unspecified Qualified Code(s): I63.9 - Cerebral infarction, unspecified (2) Diabetes mellitus type 2 with complications Code(s): E11.8 - TYPE 2 DIABETES MELLITUS WITH UNSPECIFIED COMPLICATIONS (3) HLD (hyperlipidemia) Code(s): E78.5 - HYPERLIPIDEMIA, UNSPECIFIED (4) Hypertensive urgency Code(s): I10 - ESSENTIAL (PRIMARY) HYPERTENSION Assessment/Plan 78 year-old female c/o waking up this morning around 6am on 01/01/19 with severe headache, transient visual loss, and tongue heaviness. Headache was rated 10/10 at its worst. Also c/o associated blurred vision, photophobia, nausea, and vomiting. Patient has had two episodes of NB/NB emesis. Denied any focal weakness. Says she still has some residual right face numbness from old stroke 10 years ago. This AM, feels sx better; denies focal weakness, numbness, slurred speech or vision c/o. at home, with recent health issues. on ASA, statin. sees cardiology DR Segovia. PMD : Dr. Amando Bains. 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 MRA H /N -P CHADS VASC SCORE 8 conservative BP control A1c controlled tomorrow can DC ASA/plavix and CAN START anticoagulation for Afib IN AM cont statin rehab/pT consult DR COPELAND Problem List - Problems (1) CVA (cerebral vascular accident) Code(s): I63.9 - CEREBRAL INFARCTION, UNSPECIFIED Qualifiers: CVA mechanism: unspecified Qualified Code(s): I63.9 - Cerebral infarction, unspecified (2) Diabetes mellitus type 2 with complications Code(s): E11.8 - TYPE 2 DIABETES MELLITUS WITH UNSPECIFIED COMPLICATIONS (3) HLD (hyperlipidemia) Code(s): E78.5 - HYPERLIPIDEMIA, UNSPECIFIED (4) Hypertensive urgency Code(s): I10 - ESSENTIAL (PRIMARY) HYPERTENSION
[2019-01-03 13:34] LABS: ALBUMIN 4.1 g/dl (3.4-5.0); BILIRUBIN,TOTAL 1.7 mg/dl (0.2-1); CALCIUM 9.3 mg/dl (8.5-10); CREATININE 0.8 mg/dl (0.55-1.3); POTASSIUM 3.6 mmol/L (3.5-5.1)
--- NOTE | 2019-01-03 13:55 | PN ---
Progress Note (short form) - Note Progress Note: s:no cp sob palps dizzy; overnight found to have new onset afib, converted to sr on own o: Vital Signs Period Temp Pulse Resp BP Sys/Mills Pulse Ox Last 24 Hr 97.7 F-98.5 F 74-114 16-18 141-172/58-73 96-100 Constitutional: Yes: Well Nourished, No Distress, Calm Eyes: Yes: WNL, Conjunctiva Clear HENT: Yes: WNL, Atraumatic, Normocephalic Neck: Yes: WNL, Supple, Trachea Midline Respiratory: Yes: WNL, Regular, CTA Bilaterally. No: Rales, Rhonchi, Wheezes Gastrointestinal: Yes: WNL, Normal Bowel Sounds, Soft. No: Distention, Tenderness Cardiovascular: Yes: WNL, Regular Rate and Rhythm. No: Bradycardia, Tachycardia , Pulse Irregular, Gallop, Rub, Varicosities JVD: No Heart Sounds: Yes: S1, S2. No: S3, S4, Clicks, Gallop, Rub, Bruit Murmur: No: Systolic Murmur, Diastolic Murmur Edema: No Integumentary: Yes: WNL Neurological: Yes: aao3 Current Medications Generic Name Dose Route Start Last Admin Trade Name Freq PRN Reason Stop Dose Admin Apixaban 5 mg 01/04/19 10:00 Eliquis - PO BID THOMAS Atorvastatin Calcium 40 mg 01/01/19 22:00 01/02/19 21:27 Lipitor - PO 40 mg HS THOMAS Administration Duloxetine HCl 30 mg 01/02/19 10:00 01/03/19 10:30 Cymbalta - PO 30 mg DAILY THOMAS Administration Sodium Chloride 1,000 mls @ 42 mls/hr 01/01/19 19:15 01/02/19 08:00 Normal Saline - IV 42 mls/hr ASDIR THOMAS Administration Insulin Aspart 1 vial 01/01/19 22:00 01/03/19 12:15 Novolog Vial Sliding Scale - SQ 4 units ACHS THOMAS Administration Protocol Isosorbide Mononitrate 30 mg 01/02/19 10:00 01/03/19 10:30 Imdur - PO 30 mg DAILY THOMAS Administration Metoprolol Succinate 25 mg 01/03/19 10:00 01/03/19 10:30 Toprol Xl - PO 25 mg DAILY THOMAS Administration Pantoprazole Sodium 40 mg 01/04/19 10:00 Protonix - PO DAILY THOMAS Spironolactone 50 mg 01/02/19 10:00 01/03/19 10:35 Aldactone - PO Not Given DAILY THOMAS Trimethobenzamide HCl 200 mg 01/02/19 15:12 01/03/19 02:26 Tigan Injection - IM 200 mg Q8H PRN Administration NAUSEA Valsartan 320 mg 01/02/19 10:00 01/03/19 10:45 Diovan - PO 160 mg DAILY THOMAS Administration CBC, BMP 01/03/19 07:44 01/03/19 12:50 ecg: sr, 1st avb, nl qtc, no ischemic changes tele: sr mibi 08/2015: no ischemia, nl lvef echo 12/2018: nl lv/rv, mild lae, mild mr/tr/ar carotids 12/2018: no sig stenosis a/p: 78 year old woman with a history of HTN, HLD, DM, CAD s/p pci x2 (most recent was shawna 2012), CVA, breast cancer here with facial numbness, speech changes, JACK, n/v. new onset afib: -last night went into afib with rvr, confirmed on ecg as well. -converted to sr on own, remains in sr now -will start toprol for rate control -chadsvasc warrants AC. Per neuro can start AC tomorrow AM so will start eliquis 5 bid then. acute cva, hx cva: -neuro following -echo, carotids unremarkable -new afib found here, likely etiology of cva -cont statin. Per neuro ok to start ac tomorrow in place of dapt. htn: -cont current meds except will dc procardia and add toprol for rate control as well hld: -cont statin CAD with remote pci: -stable, no signs acs -recent echo and mibi unremarkable -cont statin, imdur, bb meds. will be on ac now so can dc asa le edema/venous insuff: -stable, cont home aldactone
[2019-01-03 15:42] VITALS: BMI 25.1
--- NOTE | 2019-01-03 15:59 | EKG ---
Test Reason : Blood Pressure : / mmHG Vent. Rate : 084 BPM Atrial Rate : 084 BPM P-R Int : 284 ms QRS Dur : 104 ms QT Int : 414 ms P-R-T Axes : 092 -16 009 degrees QTc Int : 489 ms SINUS RHYTHM WITH 1ST DEGREE A-V BLOCK WITH OCCASIONAL PREMATURE VENTRICULAR COMPLEXES INFERIOR INFARCT (CITED ON OR BEFORE 15-SEP-2013) ABNORMAL ECG WHEN COMPARED WITH ECG OF 02-JAN-2019 20:45, SINUS RHYTHM HAS REPLACED ATRIAL FLUTTER ST NO LONGER DEPRESSED IN INFERIOR LEADS Confirmed by TWAN PORTILLO, ADY ([id number]) on 01/03/2019 3:58:55 PM Referred By: Confirmed By:ADY TRENT MD
[2019-01-03] MEDS: SODIUM CHLORIDE 1,000 ML IV SCH (19:30)
[2019-01-03] MEDS: ATORVASTATIN CA 40 MG TABLET (FP) PO SCH (22:20)
[2019-01-03] MEDS: ZOLPIDEM TARTRATE 5 MG TABLET PO PRN (22:59)
[2019-01-04] MEDS: INSULIN SLIDING SCALE (NOVOLOG) 1 VIAL SQ SCH ×4 (06:52→21:56)
--- NOTE | 2019-01-04 08:54 | PN ---
Physical Exam: SUBJECTIVE: Patient seen and examined at bedside, c/o left knee pain and limited ROM. Denies JACK, dizziness, blurred or double vision,cp,sob,palpitations ,cough, abdominal pain, N/V/D. OBJECTIVE: Vital Signs Period Temp Pulse Resp BP Sys/Mills Pulse Ox Last 24 Hr 97.8 F-98.8 F 71-91 16-19 144-182/58-72 97-100 GENERAL: The patient is awake, alert, and fully oriented, in no acute distress. HEAD: Normal with no signs of trauma. EYES: PERRL, extraocular movements intact, sclera anicteric, conjunctiva clear. No ptosis. ENT: Ears normal, nares patent, oropharynx clear without exudates, moist mucous membranes. NECK: Trachea midline, full range of motion, supple. LUNGS: Breath sounds equal, clear to auscultation bilaterally, no wheezes, no crackles, no accessory muscle use. HEART: Regular rate and rhythm, S1, S2 without murmur, rub or gallop. ABDOMEN: Soft, nontender, nondistended, normoactive bowel sounds, no guarding, no rebound, no hepatosplenomegaly, no masses. EXTREMITIES: 2+ pulses, warm, well-perfused, left knee with mild swelling,+ tenderness and limited ROM NEUROLOGICAL: Cranial nerves II through XII grossly intact. Normal speech, gait not observed. PSYCH: Normal mood, normal affect. SKIN: Warm, dry, normal turgor, no rashes, RLE with healing skin abrasion, dsg intact Laboratory Results - last 24 hr 01/03/19 01/03/19 01/03/19 07:44 07:44 07:44 Neutrophils % (Manual) 91.0 H* Lymphocytes % (Manual) 8.0 Monocytes % (Manual) 1 L Platelet Estimate Adequate Sodium 139 Potassium 3.6 Chloride 104 Carbon Dioxide 17 L Anion Gap 18 H BUN 17.0 Creatinine 0.8 Est GFR (CKD-EPI)AfAm 82.42 Est GFR (CKD-EPI)NonAf 71.11 Random Glucose 150 H Calcium 9.5 Magnesium 2.1 Total Bilirubin 2.0 H AST 41 H ALT 39 Alkaline Phosphatase 73 Total Protein 7.6 Albumin 4.3 Triglycerides 64 Cholesterol 185 Total LDL Cholesterol 108 H HDL Cholesterol 64 H 01/03/19 12:50 Neutrophils % (Manual) Lymphocytes % (Manual) Monocytes % (Manual) Platelet Estimate Sodium 136 Potassium 3.6 Chloride 102 Carbon Dioxide 21 Anion Gap 13 BUN 18.0 Creatinine 0.8 Est GFR (CKD-EPI)AfAm 82.42 Est GFR (CKD-EPI)NonAf 71.11 Random Glucose 188 H Calcium 9.3 Magnesium Total Bilirubin 1.7 H AST 38 H ALT 36 Alkaline Phosphatase 73 Total Protein 7.0 Albumin 4.1 Triglycerides Cholesterol Total LDL Cholesterol HDL Cholesterol Active Medications Generic Name Dose Route Start Last Admin Trade Name Freq PRN Reason Stop Dose Admin Apixaban 5 mg 01/04/19 10:00 Eliquis - PO BID THOMAS Atorvastatin Calcium 40 mg 01/01/19 22:00 01/03/19 22:20 Lipitor - PO 40 mg HS THOMAS Administration Duloxetine HCl 30 mg 01/02/19 10:00 01/03/19 10:30 Cymbalta - PO 30 mg DAILY THOMAS Administration Sodium Chloride 1,000 mls @ 42 mls/hr 01/01/19 19:15 01/03/19 19:30 Normal Saline - IV 42 mls/hr ASDIR THOMAS Administration Insulin Aspart 1 vial 01/01/19 22:00 01/04/19 06:52 Novolog Vial Sliding Scale - SQ Not Given ACHS THOMAS Protocol Isosorbide Mononitrate 30 mg 01/02/19 10:00 01/03/19 10:30 Imdur - PO 30 mg DAILY THOMAS Administration Metoprolol Succinate 25 mg 01/03/19 10:00 01/03/19 10:30 Toprol Xl - PO 25 mg DAILY THOMAS Administration Pantoprazole Sodium 40 mg 01/04/19 10:00 Protonix - PO DAILY THOMAS Spironolactone 50 mg 01/02/19 10:00 01/03/19 10:35 Aldactone - PO Not Given DAILY THOMAS Trimethobenzamide HCl 200 mg 01/02/19 15:12 01/03/19 02:26 Tigan Injection - IM 200 mg Q8H PRN Administration NAUSEA Valsartan 320 mg 01/02/19 10:00 01/03/19 10:45 Diovan - PO 160 mg DAILY THOMSA Administration Zolpidem Tartrate 5 mg 01/03/19 22:41 01/03/19 22:59 Ambien - PO 5 mg HS PRN Administration INSOMNIA ASSESSMENT/PLAN: 78 year-old female with a PMH significant for HTN, HLD, CAD s/p [place] s/p stent, CVA 2008, asthma, Type II IDDM, PVD, and left breast cancer. Presented with stroke-like symptoms outside the window for TPA. Found to have acute left-side CVA. 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: +plaque left common carotid, no hemodynamically significant stenosis - Neuro following - Rpt CT head - No significant change s when compared to previous study on 01/01 - fasting lipids reviewed - started on Eliquis,will cont on Lipitor -neuro checks - no changes -MRI/MRA head and neck pt refused -PT eval done, rec home with Assist - Echo done: EF 60-65%, impaired relaxation; RV normal; LAE; mild MR; mild TR; mild AI; mild PI -no focal deficits - Swallowing eval done, rec regular diet, aspiration precautions * New onset of A- FIB with RVR, now SR with 1st degree AVB - started on Toprol as per card rec, will cont - started on Eliquis - tele monitoring- no events - Echo reviewed - TSH- WNL - card following *Hypertensive emergency -BP 205/80 with acute CVA on admission -per neuro, maintain between 160-190 acutely, then adjust 25% of baseline in am -will resume on home meds Valsartan,Imdur and Aldactone will adjust dosing accordingly - will hold off on Nifedipine,added BB *Coronary artery disease s/p stent, asymptomatic -continue ASA, statin, isosorbide, - EKG SR with first degree AVB *Diastolic heart failure-appears euvolemic -Echo: EF 60-65%, impaired relaxation; RV normal; LAE; mild MR; mild TR; mild AI ; mild PI -continue spironolactone, ARB *Type II IDDM -Novolog sliding scale coverage -FS monitoring, BS improving 188>100's - Hgb ALC 6 - consistent carb diet *Anxiety -continue Cymbalta * Nausea and vomiting- resolved -will cont on Tigan PRN (prolonged QT interval, Zofran contraindicated) -full liquid diet gary well, will advance to consistent carb diet - will cont on PPI - T. Bili 1.5>2->1.7 asymptomatic - AST 41, ALT and ALK- WNL - will f/u on labs * Mild leukocytosis - ? reactive - afebrile, wbc 6.2>12.1>15.3 -Anion Gap 18 - normalized - Initial UA neg , Will rpt UA - CxR no acute pathology -BC done, report pending -will f/u on labs *Left knee pain- likely due to arthritis, denies any trauma - will apply ice and pain control - ESR-4 - will get left knee X'ray -Physical therapy - if no improvement, consider ortho consult in AM *FEN Electrolytes: replete as indicated- K 3.4 replaced Nutrition: Consistent carb, low salt/fat diet DVT prophylaxis: Eliquis Dispo: continues to require inpatient care. Code status: Full code Visit type - Emergency Visit Emergency Visit: Yes ED Registration Date: 01/01/19 Care time: The patient presented to the Emergency Department on the above date and was hospitalized for further evaluation of their emergent condition. - New Patient This patient is new to me today: Yes Date on this admission: 01/04/19 - Critical Care Critical Care patient: No
[2019-01-04] MEDS ORDERED: ACETAMINOPHEN 325 MG TABLET (FP) PO PRN (09:11)
[2019-01-04 09:37] LABS: ALBUMIN 3.7 g/dl (3.4-5.0); BILIRUBIN,TOTAL 1.7 mg/dl (0.2-1); CALCIUM 8.9 mg/dl (8.5-10); CREATININE 0.7 mg/dl (0.55-1.3); POTASSIUM 3.4 mmol/L (3.5-5.1); TOT PROT 6.3 g/dl (6.4-8.2)
[2019-01-04] MEDS: PANTOPRAZOLE 40 MG TABLET (FP) PO SCH (09:50)
[2019-01-04] MEDS: VALSARTAN 160 MG TABLET (UD) PO SCH (09:51)
[2019-01-04] MEDS: DULoxetine HCL 30 MG CAPSULE.DR PO SCH (09:51)
[2019-01-04] MEDS: SPIRONOLACTONE 25 MG TABLET (FP) PO SCH (09:51)
[2019-01-04] MEDS: ISOSORBIDE MONONITRATE 30 MG TAB.SR.24H (FP) PO SCH (09:51)
[2019-01-04] MEDS: APIXABAN 5 MG TABLET PO SCH ×2 (09:52→21:56)
[2019-01-04] MEDS: metoPROLOL SUCCINATE 25 MG TAB.SR.24H (FP) PO SCH (09:53)
[2019-01-04 10:24] LABS: BASO % 0.4 % (0-2.0); EOS % 0.6 % (0-4.5); HEMATOCRIT 48.5 % (32.4-45.2); HEMOGLOBIN 16.4 GM/dl (10.7-15.3); LYMPH % 12.1 % (8-40); MCH 31.8 pg (25.7-33.7); MCHC 33.7 g/dl (32.0-36.0); MEAN CELL VOLUME 94.3 fl (80-96); MEAN PLT VOLUME 10.8 fl (7.5-11.1); MONO % 8.2 % (3.8-10.2); NEUT % 78.7 % (42.8-82.8); PLATELET COUNT 220 K/MM3 (134-434); RBC 5.14 M/mm3 (3.60-5.2); RDW 11.8 % (11.6-15.6); WHITE BLOOD COUNT 15.3 K/mm3 (4.0-10.8)
[2019-01-04] MEDS ORDERED: POTASSIUM CHLORIDE TABS 20 MEQ TABLET.ER (FP) PO ONE (10:25)
[2019-01-04] MEDS ORDERED: IBUPROFEN 400 MG TABLET (FP) PO ONE (12:00)
[2019-01-04 13:49] LABS: URIC ACID 4.4 mg/dl (2.6-7.2)
[2019-01-04] MEDS ORDERED: PIPERACILLIN/TAZOBACTAM 3.375 GM VIAL IVPB ONE (15:56)
[2019-01-04] MEDS ORDERED: DEXTROSE 5%-WATER - 50 ML IVPB ONE (15:58)
[2019-01-04] MEDS ORDERED: VANCOMYCIN HCL 1,500 MG in DEXTROSE 5%-WATER - 500 ML IVPB ONE (16:00)
[2019-01-04] MEDS: PIPERACILLIN/TAZOB 3.375 GM 3.375 GM in DEXTROSE 5%-WATER - 50 ML IVPB SCH (16:01)
[2019-01-04 16:46] LABS: EPITHELIAL CELLS FEW /hpf; URINE MUCUS 1+
[2019-01-04] MEDS: ATORVASTATIN CA 40 MG TABLET (FP) PO SCH (21:56)
[2019-01-05] MEDS ORDERED: DEXTROSE 5%-WATER - 50 ML IVPB ONE ×2 (01:50→10:35)
[2019-01-05] MEDS ORDERED: PIPERACILLIN/TAZOBACTAM 3.375 GM VIAL IVPB ONE ×2 (01:50→10:35)
[2019-01-05] MEDS: PIPERACILLIN/TAZOB 3.375 GM 3.375 GM in DEXTROSE 5%-WATER - 50 ML IVPB SCH ×3 (01:56→18:01)
[2019-01-05 08:15] LABS: BASO % 0.3 % (0-2.0); EOS % 1.1 % (0-4.5); HEMATOCRIT 47.3 % (32.4-45.2); HEMOGLOBIN 15.9 GM/dl (10.7-15.3); LYMPH % 20.3 % (8-40); MCH 31.8 pg (25.7-33.7); MCHC 33.5 g/dl (32.0-36.0); MEAN CELL VOLUME 94.7 fl (80-96); MEAN PLT VOLUME 11.3 fl (7.5-11.1); MONO % 12.3 % (3.8-10.2); PLATELET COUNT 193 K/MM3 (134-434); RDW 11.9 % (11.6-15.6); WHITE BLOOD COUNT 10.8 K/mm3 (4.0-10.8)
[2019-01-05 08:20] LABS: CALCIUM 8.9 mg/dl (8.5-10); CREATININE 0.8 mg/dl (0.55-1.3); POTASSIUM 3.6 mmol/L (3.5-5.1)
[2019-01-05] MEDS: APIXABAN 5 MG TABLET PO SCH ×2 (10:53→22:07)
[2019-01-05] MEDS: SPIRONOLACTONE 25 MG TABLET (FP) PO SCH (10:53)
[2019-01-05] MEDS: VALSARTAN 160 MG TABLET (UD) PO SCH (10:53)
[2019-01-05] MEDS: DULoxetine HCL 30 MG CAPSULE.DR PO SCH (10:53)
[2019-01-05] MEDS: ISOSORBIDE MONONITRATE 30 MG TAB.SR.24H (FP) PO SCH (10:53)
[2019-01-05] MEDS: metoPROLOL SUCCINATE 25 MG TAB.SR.24H (FP) PO SCH (10:53)
[2019-01-05] MEDS: PANTOPRAZOLE 40 MG TABLET (FP) PO SCH (10:53)
--- NOTE | 2019-01-05 10:57 | PN ---
Physical Exam: SUBJECTIVE: Patient seen and examined oob to chair. OBJECTIVE: Vital Signs Period Temp Pulse Resp BP Sys/Mills Pulse Ox Last 24 Hr 98.0 F-98.8 F 55-64 16-185 139-157/44-63 97-99 GENERAL: The patient is awake, alert, and fully oriented LUNGS: Breath sounds equal, clear to auscultation bilaterally, no wheezes, no crackles, no accessory muscle use. HEART: Regular rate and rhythm, S1, S2 ABDOMEN: Soft, nontender, nondistended EXTREMITIES: 2+ pulses, warm, well-perfused, no edema. NEUROLOGICAL: Cranial nerves II through XII grossly intact. Normal speech, steady gait. 5/5 motor, 5/5 sensory all extremities Laboratory Results - last 24 hr 01/02/19 01/02/19 01/02/19 12:36 16:32 20:57 WBC RBC Hgb Hct MCV MCH MCHC RDW Plt Count MPV Absolute Neuts (auto) Neutrophils % Lymphocytes % Monocytes % Eosinophils % Basophils % ESR Sodium Potassium Chloride Carbon Dioxide Anion Gap BUN Creatinine Est GFR (CKD-EPI)AfAm Est GFR (CKD-EPI)NonAf POC Glucometer 100 163 148 Random Glucose Uric Acid Calcium C-Reactive Protein Urine Color Urine Appearance Urine pH Urine Protein Urine Glucose (UA) Urine Ketones Urine Blood Urine Nitrite Urine Bilirubin Urine Urobilinogen Ur Leukocyte Esterase Urine RBC Urine WBC Ur Transition Epith Cell Urine Mucus 01/03/19 01/03/19 01/03/19 06:36 11:40 16:50 WBC RBC Hgb Hct MCV MCH MCHC RDW Plt Count MPV Absolute Neuts (auto) Neutrophils % Lymphocytes % Monocytes % Eosinophils % Basophils % ESR Sodium Potassium Chloride Carbon Dioxide Anion Gap BUN Creatinine Est GFR (CKD-EPI)AfAm Est GFR (CKD-EPI)NonAf POC Glucometer 190 208 124 Random Glucose Uric Acid Calcium C-Reactive Protein Urine Color Urine Appearance Urine pH Urine Protein Urine Glucose (UA) Urine Ketones Urine Blood Urine Nitrite Urine Bilirubin Urine Urobilinogen Ur Leukocyte Esterase Urine RBC Urine WBC Ur Transition Epith Cell Urine Mucus 01/03/19 01/04/19 01/04/19 22:23 06:51 07:00 WBC RBC Hgb Hct MCV MCH MCHC RDW Plt Count MPV Absolute Neuts (auto) Neutrophils % Lymphocytes % Monocytes % Eosinophils % Basophils % ESR Sodium Potassium Chloride Carbon Dioxide Anion Gap BUN Creatinine Est GFR (CKD-EPI)AfAm Est GFR (CKD-EPI)NonAf POC Glucometer 154 150 Random Glucose Uric Acid 4.4 Calcium C-Reactive Protein 0.4 H Urine Color Urine Appearance Urine pH Urine Protein Urine Glucose (UA) Urine Ketones Urine Blood Urine Nitrite Urine Bilirubin Urine Urobilinogen Ur Leukocyte Esterase Urine RBC Urine WBC Ur Transition Epith Cell Urine Mucus 01/04/19 01/04/19 01/04/19 10:00 11:17 15:30 WBC RBC Hgb Hct MCV MCH MCHC RDW Plt Count MPV Absolute Neuts (auto) Neutrophils % Lymphocytes % Monocytes % Eosinophils % Basophils % ESR 4 Sodium Potassium Chloride Carbon Dioxide Anion Gap BUN Creatinine Est GFR (CKD-EPI)AfAm Est GFR (CKD-EPI)NonAf POC Glucometer 217 Random Glucose Uric Acid Calcium C-Reactive Protein Urine Color Yellow Urine Appearance Clear Urine pH 6.0 Urine Protein 2+ H Urine Glucose (UA) Trace Urine Ketones 1+ H Urine Blood Trace-intact Urine Nitrite Negative Urine Bilirubin 1+ H Urine Urobilinogen 1.0 Ur Leukocyte Esterase Trace H Urine RBC 2-5 Urine WBC 5-10 Ur Transition Epith Cell Few Urine Mucus 1+ 01/04/19 01/04/19 01/05/19 18:39 21:54 01:47 WBC RBC Hgb Hct MCV MCH MCHC RDW Plt Count MPV Absolute Neuts (auto) Neutrophils % Lymphocytes % Monocytes % Eosinophils % Basophils % ESR Sodium Potassium Chloride Carbon Dioxide Anion Gap BUN Creatinine Est GFR (CKD-EPI)AfAm Est GFR (CKD-EPI)NonAf POC Glucometer 321 68 164 Random Glucose Uric Acid Calcium C-Reactive Protein Urine Color Urine Appearance Urine pH Urine Protein Urine Glucose (UA) Urine Ketones Urine Blood Urine Nitrite Urine Bilirubin Urine Urobilinogen Ur Leukocyte Esterase Urine RBC Urine WBC Ur Transition Epith Cell Urine Mucus 01/05/19 01/05/19 01/05/19 06:12 06:52 06:52 WBC 10.8 RBC 5.00 Hgb 15.9 H Hct 47.3 H MCV 94.7 MCH 31.8 MCHC 33.5 RDW 11.9 Plt Count 193 MPV 11.3 H Absolute Neuts (auto) 7.2 Neutrophils % 66.0 Lymphocytes % 20.3 Monocytes % 12.3 H Eosinophils % 1.1 Basophils % 0.3 ESR Sodium 138 Potassium 3.6 Chloride 103 Carbon Dioxide 28 Anion Gap 7 L BUN 16.0 Creatinine 0.8 Est GFR (CKD-EPI)AfAm 82.42 Est GFR (CKD-EPI)NonAf 71.11 POC Glucometer 139 Random Glucose 150 H Uric Acid Calcium 8.9 C-Reactive Protein Urine Color Urine Appearance Urine pH Urine Protein Urine Glucose (UA) Urine Ketones Urine Blood Urine Nitrite Urine Bilirubin Urine Urobilinogen Ur Leukocyte Esterase Urine RBC Urine WBC Ur Transition Epith Cell Urine Mucus Active Medications Generic Name Dose Route Start Last Admin Trade Name Freq PRN Reason Stop Dose Admin Acetaminophen 325 mg 01/04/19 09:11 01/04/19 10:17 Tylenol - PO 325 mg Q6H PRN Administration PAIN LEVEL 1-5 Apixaban 5 mg 01/04/19 10:00 01/05/19 10:53 Eliquis - PO 5 mg BID THOMAS Administration Atorvastatin Calcium 40 mg 01/01/19 22:00 01/04/19 21:56 Lipitor - PO 40 mg HS THOMAS Administration Duloxetine HCl 30 mg 01/02/19 10:00 01/05/19 10:53 Cymbalta - PO 30 mg DAILY THOMAS Administration Piperacillin Sod/Tazobactam 50 mls @ 100 mls/hr 01/04/19 15:00 01/05/19 10:54 Sod 3.375 gm/ Dextrose IVPB 100 mls/hr Q8H-IV THOMAS Administration Protocol Insulin Aspart 1 vial 01/01/19 22:00 01/04/19 21:56 Novolog Vial Sliding Scale - SQ Not Given ACHS THOMAS Protocol Isosorbide Mononitrate 30 mg 01/02/19 10:00 01/05/19 10:53 Imdur - PO 30 mg DAILY THOMAS Administration Metoprolol Succinate 25 mg 01/03/19 10:00 01/05/19 10:53 Toprol Xl - PO 25 mg DAILY THOMAS Administration Pantoprazole Sodium 40 mg 01/04/19 10:00 01/05/19 10:53 Protonix - PO 40 mg DAILY THOMAS Administration Spironolactone 50 mg 01/02/19 10:00 01/05/19 10:53 Aldactone - PO 50 mg DAILY THOMAS Administration Trimethobenzamide HCl 200 mg 01/02/19 15:12 01/03/19 02:26 Tigan Injection - IM 200 mg Q8H PRN Administration NAUSEA Valsartan 320 mg 01/02/19 10:00 01/05/19 10:53 Diovan - PO 320 mg DAILY THOMAS Administration Zolpidem Tartrate 5 mg 01/03/19 22:41 01/03/19 22:59 Ambien - PO 5 mg HS PRN Administration INSOMNIA PCP: Dr. Amando Bains ASSESSMENT/PLAN 78 year-old female with a PMH significant for HTN, HLD, CAD s/p [place] s/p stent, CVA 2008, asthma, Type II IDDM, PVD, and left breast cancer. Presented with stroke-like symptoms outside the window for TPA. Found to have acute left-side CVA. Then found to have newly diagnosed atrial fibrillation with RVR. 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 --US carotids: +plaque left common carotid, no hemodynamically significant stenosis --ASA and Plavix dc'd; continue Lipitor Atrial fibrillation --rate controlled on Toprol XL --on Eliquis Leukocytosis --uncertain etiology, started on Zosyn (day #2) --afebrile --ID following Hypertensive emergency --BP better controlled --continue Toprol XL, Valsartan Coronary artery disease s/p stent --continue ASA, statin, isosorbide Diastolic heart failure --Echo: EF 60-65%, impaired relaxation; RV normal; LAE; mild MR; mild TR; mild AI; mild PI --continue spironolactone Type II IDDM --Novolog sliding scale coverage Anxiety --continue Cymbalta FEN Fluids: PO intake adequate Electrolytes: replete as indicated Nutrition: low sodium, diabetic DVT prophylaxis: subq heparin Physical therapy Dispo: continues to require inpatient care. Full code. Visit type - Emergency Visit Emergency Visit: Yes ED Registration Date: 01/01/19 Care time: The patient presented to the Emergency Department on the above date and was hospitalized for further evaluation of their emergent condition. - New Patient This patient is new to me today: No - Critical Care Critical Care patient: No - Discharge Referral Referred to [facility] No
[2019-01-05] MEDS: INSULIN SLIDING SCALE (NOVOLOG) 1 VIAL SQ SCH ×3 (11:00→22:07)
[2019-01-05] MEDS: ATORVASTATIN CA 40 MG TABLET (FP) PO SCH (22:07)
[2019-01-05] MEDS: ZOLPIDEM TARTRATE 5 MG TABLET PO PRN (22:07)
[2019-01-06] MEDS ORDERED: DEXTROSE 5%-WATER - 50 ML IVPB ONE ×2 (00:59→09:09)
[2019-01-06] MEDS ORDERED: PIPERACILLIN/TAZOBACTAM 3.375 GM VIAL IVPB ONE ×2 (00:59→09:09)
[2019-01-06] MEDS: PIPERACILLIN/TAZOB 3.375 GM 3.375 GM in DEXTROSE 5%-WATER - 50 ML IVPB SCH ×2 (01:07→09:24)
[2019-01-06] MEDS: INSULIN SLIDING SCALE (NOVOLOG) 1 VIAL SQ SCH ×2 (06:18→12:04)
[2019-01-06] MEDS: SPIRONOLACTONE 25 MG TABLET (FP) PO SCH (09:20)
[2019-01-06] MEDS: DULoxetine HCL 30 MG CAPSULE.DR PO SCH (09:21)
[2019-01-06] MEDS: VALSARTAN 160 MG TABLET (UD) PO SCH (09:22)
[2019-01-06] MEDS: PANTOPRAZOLE 40 MG TABLET (FP) PO SCH (09:23)
[2019-01-06] MEDS: ISOSORBIDE MONONITRATE 30 MG TAB.SR.24H (FP) PO SCH (09:23)
[2019-01-06] MEDS: APIXABAN 5 MG TABLET PO SCH (09:23)
[2019-01-06] MEDS: metoPROLOL SUCCINATE 25 MG TAB.SR.24H (FP) PO SCH (09:24)
[2019-01-06 10:57] LABS: BASO % 0.2 % (0-2.0); EOS % 1.2 % (0-4.5); HEMATOCRIT 46.9 % (32.4-45.2); HEMOGLOBIN 15.8 GM/dl (10.7-15.3); LYMPH % 16.3 % (8-40); MCHC 33.7 g/dl (32.0-36.0); MEAN PLT VOLUME 10.9 fl (7.5-11.1); MONO % 8.8 % (3.8-10.2); NEUT % 73.5 % (42.8-82.8); PLATELET COUNT 198 K/MM3 (134-434); RBC 4.94 M/mm3 (3.60-5.2); WHITE BLOOD COUNT 9.5 K/mm3 (4.0-10.8)
[2019-01-06 11:24] LABS: ALBUMIN 3.2 g/dl (3.4-5.0); BILIRUBIN,DIRECT 0.3 mg/dL (0.0-0.2); BILIRUBIN,TOTAL 1.3 mg/dl (0.2-1); CALCIUM 8.6 mg/dl (8.5-10); CREATININE 0.9 mg/dl (0.55-1.3); MAGNESIUM 1.9 mg/dL (1.8-2.4); POTASSIUM 3.3 mmol/L (3.5-5.1); TOT PROT 5.9 g/dl (6.4-8.2)
[2019-01-06] MEDS ORDERED: POTASSIUM CHLORIDE TABS 20 MEQ TABLET.ER (FP) PO ONE (12:00)
[2019-01-06] MEDS ORDERED: CLOPIDOGREL BISULFATE 75 MG TABLET (FP) PO SCH (12:30)
--- NOTE | 2019-01-06 12:46 | DS ---
Physical Exam: SUBJECTIVE: Patient seen and examined at bedside. OBJECTIVE: Vital Signs Period Temp Pulse Resp BP Sys/Mills Pulse Ox Last 24 Hr 98.1 F-98.6 F 63-70 17-20 125-154/62-66 96-98 PHYSICAL EXAM GENERAL: The patient is awake, alert, and fully oriented LUNGS: Breath sounds equal, clear to auscultation bilaterally, no wheezes, no crackles, no accessory muscle use. HEART: Regular rate and rhythm, S1, S2 ABDOMEN: Soft, nontender, nondistended EXTREMITIES: 2+ pulses, warm, well-perfused, no edema. NEUROLOGICAL: Cranial nerves II through XII grossly intact. Normal speech, steady gait. 5/5 motor, 5/5 sensory all extremities LABS Laboratory Results - last 24 hr 01/05/19 01/06/19 01/06/19 21:59 06:15 10:42 WBC 9.5 RBC 4.94 Hgb 15.8 H Hct 46.9 H MCV 95.0 MCH 32.0 MCHC 33.7 RDW 12.0 Plt Count 198 MPV 10.9 Absolute Neuts (auto) 7.1 Neutrophils % 73.5 Lymphocytes % 16.3 Monocytes % 8.8 Eosinophils % 1.2 Basophils % 0.2 Sodium Potassium Chloride Carbon Dioxide Anion Gap BUN Creatinine Est GFR (CKD-EPI)AfAm Est GFR (CKD-EPI)NonAf POC Glucometer 234 192 Random Glucose Calcium Magnesium Total Bilirubin Direct Bilirubin AST ALT Alkaline Phosphatase Total Protein Albumin 01/06/19 01/06/19 10:42 12:02 WBC RBC Hgb Hct MCV MCH MCHC RDW Plt Count MPV Absolute Neuts (auto) Neutrophils % Lymphocytes % Monocytes % Eosinophils % Basophils % Sodium 135 L Potassium 3.3 L Chloride 101 Carbon Dioxide 27 Anion Gap 7 L BUN 21.0 H Creatinine 0.9 Est GFR (CKD-EPI)AfAm 71.48 Est GFR (CKD-EPI)NonAf 61.67 POC Glucometer 227 Random Glucose 248 H Calcium 8.6 Magnesium 1.9 Total Bilirubin 1.3 H Direct Bilirubin 0.3 H AST 32 ALT 32 Alkaline Phosphatase 55 Total Protein 5.9 L Albumin 3.2 L Date of Admission:01/01/19 Date of Discharge: 01/06/19 Pre hospital course 78 year-old female c/o waking up this morning around 6am with severe headache, transient visual loss, and tongue heaviness. Headache was rated 10/10 at its worst. Also c/o associated blurred vision, photophobia, nausea, and vomiting. Patient has had two episodes of NB/NB emesis. Denied any focal weakness. Says she still has some residual right face numbness from old stroke 10 years ago. Hospital course 78 year-old female with a PMH significant for HTN, HLD, CAD s/p [place] s/p stent, CVA 2008, asthma, Type II IDDM, PVD, and left breast cancer. Presented with stroke-like symptoms outside the window for TPA. Found to have acute left-side CVA. Then found to be in afib. 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 --US carotids: +plaque left common carotid, no hemodynamically significant stenosis --ASA dc'd; continue statin Paroxysmal arial fibrillation --documented on serial ECGs, now back in sinus rhythm --Toprol XL started for rate control --Eliquis started Leukocytosis, resolved --uncertain etiology: CXR unremarkable, few WBCs in urine but asymptomatic, cultures negative to date; afebrile throughout admission --treated empirically with Zosyn x 3 days --discharge off antibiotics Hypertensive emergency --nifedipine was dc'd in order to start Toprol XL for rate control; continued Valsartan Coronary artery disease s/p stent --aspirin d/c'd; continue on statin, isosorbide, and Plavix on discharge Diastolic heart failure --Echo: EF 60-65%, impaired relaxation; RV normal; LAE; mild MR; mild TR; mild AI; mild PI --continued spironolactone Type II IDDM --Novolog sliding scale coverage Anxiety --continued Cymbalta Minutes to complete discharge: 35 Discharge Summary Reason For Visit: HEADACHE & FACE NUMBNESS Current Active Problems CVA (cerebral vascular accident) (Acute) Condition: Stable - Instructions Diet, Activity, Other Instructions: Three prescriptions have been sent to your pharmacy: 1. Eliquis - blood thinner 2. Lipitor - statin 3. Toprol XL - beta higinio and anti-hypertensive Take these medications exactly as prescribed. STOP TAKING ASPIRIN. CONTINUE TAKING PLAVIX. 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 Call his office and make an appointment to see him in 1-2 weeks. You have an appointment to see a neurologist, Dr. Sony Alvarado. Your appointment is for February 03 at 2:30pm. Bring your insurance cards, and a list of your medications. Referrals: Lemuel Dillon MD [Staff Physician] - Sony Alvarado MD [Staff Physician] - Disposition: HOME - Home Medications Comprehensive Discharge Medication List: Ambulatory Orders Isosorbide Mononitrate 30 mg PO DAILY 07/03/15 Sitagliptin Phos/Metformin HCl [Janumet 50-500 mg Tablet] 1 tab PO BID 07/03/15 Telmisartan [Micardis] 80 mg PO DAILY 07/03/15 Nifedipine ER [Procardia XL -] 120 mg PO DAILY #30 tab.er.24 07/06/15 Duloxetine HCl 30 mg PO DAILY 11/02/17 Insulin Lispro Protamin/Lispro [Humalog Mix 75-25 Kwikpen] 100 unit SQ ASDIR 06/10 Spironolactone 50 mg PO DAILY 11/02/17 Aspirin [Aspirin EC] 81 mg PO DAILY 01/01/19 Lubiprostone [Amitiza] 8 mcg PO BID 01/01/19 Zolpidem Tartrate [Ambien] 10 mg PO HS 01/01/19 This patient is new to me today: No Emergency Visit: Yes ED Registration Date: 01/01/19 Care time: The patient presented to the Emergency Department on the above date and was hospitalized for further evaluation of their emergent condition. Critical Care patient: No - Discharge Referral Referred to [facility] No
[2019-01-06 14:30] VITALS: BP 137/67; PULSE 72; TEMP 97.7
--- NOTE | 2019-01-06 14:45 | EKG ---
Test Reason : Blood Pressure : / mmHG Vent. Rate : 065 BPM Atrial Rate : 258 BPM P-R Int : 000 ms QRS Dur : 098 ms QT Int : 444 ms P-R-T Axes : 089 001 062 degrees QTc Int : 461 ms ATRIAL FLUTTER WITH 4:1 A-V CONDUCTION ABNORMAL ECG WHEN COMPARED WITH ECG OF 03-JAN-2019 10:09, ATRIAL FLUTTER HAS REPLACED SINUS RHYTHM T WAVE INVERSION NO LONGER EVIDENT IN INFERIOR LEADS Confirmed by Burak Niño MD ([id number]) on 01/06/2019 2:45:08 PM Referred By: ROXI RASMUSSEN Confirmed By:Burak Niño MD
--- NOTE | 2019-01-06 15:06 | PN ---
Progress Note, Physician Chief Complaint: comfortable, no distress - Current Medication List Current Medications: Active Medications Acetaminophen (Tylenol -) 325 mg PO Q6H PRN PRN Reason: PAIN LEVEL 1-5 Last Admin: 01/04/19 10:17 Dose: 325 mg Apixaban (Eliquis -) 5 mg PO BID [facility] Last Admin: 01/06/19 09:23 Dose: 5 mg Atorvastatin Calcium (Lipitor -) 40 mg PO HS [facility] Last Admin: 01/05/19 22:07 Dose: 40 mg Clopidogrel Bisulfate (Plavix -) 75 mg PO DAILY [facility] Last Admin: 01/06/19 12:43 Dose: 75 mg Duloxetine HCl (Cymbalta -) 30 mg PO DAILY [facility] Last Admin: 01/06/19 09:21 Dose: 30 mg Piperacillin Sod/Tazobactam (Sod 3.375 gm/ Dextrose) 50 mls @ 100 mls/hr IVPB Q8H-IV [facility]; Protocol Last Admin: 01/06/19 09:24 Dose: 100 mls/hr Insulin Aspart (Novolog Vial Sliding Scale -) 1 vial SQ ACHS [facility]; Protocol Last Admin: 01/06/19 12:04 Dose: 4 units Isosorbide Mononitrate (Imdur -) 30 mg PO DAILY [facility] Last Admin: 01/06/19 09:23 Dose: 30 mg Metoprolol Succinate (Toprol Xl -) 25 mg PO DAILY [facility] Last Admin: 01/06/19 09:24 Dose: 25 mg Pantoprazole Sodium (Protonix -) 40 mg PO DAILY [facility] Last Admin: 01/06/19 09:23 Dose: 40 mg Spironolactone (Aldactone -) 50 mg PO DAILY [facility] Last Admin: 01/06/19 09:20 Dose: 50 mg Trimethobenzamide HCl (Tigan Injection -) 200 mg IM Q8H PRN PRN Reason: NAUSEA Last Admin: 01/03/19 02:26 Dose: 200 mg Valsartan (Diovan -) 320 mg PO DAILY [facility] Last Admin: 01/06/19 09:22 Dose: 320 mg Zolpidem Tartrate (Ambien -) 5 mg PO HS PRN PRN Reason: INSOMNIA Last Admin: 01/05/19 22:07 Dose: 5 mg - Objective Vital Signs: Vital Signs Temperature 97.7 F 01/06/19 14:30 Pulse Rate 72 01/06/19 14:30 Respiratory Rate 16 01/06/19 14:30 Blood Pressure 137/67 01/06/19 14:30 O2 Sat by Pulse Oximetry (%) 98 01/06/19 14:30 Constitutional: Yes: No Distress Cardiovascular: Yes: Pulse Irregular Respiratory: Yes: CTA Bilaterally Gastrointestinal: Yes: Soft Edema: No Neurological: Yes: Alert, Oriented Labs: CBC, BMP 01/06/19 10:42 01/06/19 10:42 INR, PTT INR 1.10 (0.82-1.09) 01/01/19 17:30 Assessment/Plan ecg: sr, 1st avb, nl qtc, no ischemic changes tele: sr mibi 08/2015: no ischemia, nl lvef echo 12/2018: nl lv/rv, mild lae, mild mr/tr/ar carotids 12/2018: no sig stenosis a/p: 78 year old woman with a history of HTN, HLD, DM, CAD s/p pci x2 (most recent was shawna 2012), CVA, breast cancer here with facial numbness, speech changes, JACK, n/v. new onset afib: -PAF -Cont toprol for rate control -chadsvasc warrants AC. Eliquis started after d/w Neuro acute cva, hx cva: -neuro following -echo, carotids unremarkable -new afib found here, likely etiology of cva -cont statin. -Eliquis started htn: -cont current meds except will dc procardia and add toprol for rate control as well hld: -cont statin CAD with remote pci: -stable, no signs acs -recent echo and mibi unremarkable -cont statin, imdur, bb meds. -Does not need DAPT as stents are remote, but continuation of single antiplatelet therapy is warranted. Will recommend Plavix as it less erosive to gastric mucosa and d/c ASA le edema/venous insuff: -stable, cont home aldactone
--- NOTE | 2019-01-06 16:34 | EKG ---
Test Reason : Blood Pressure : / mmHG Vent. Rate : 069 BPM Atrial Rate : 276 BPM P-R Int : 000 ms QRS Dur : 110 ms QT Int : 438 ms P-R-T Axes : 083 009 061 degrees QTc Int : 469 ms ATRIAL FLUTTER WITH 4:1 A-V CONDUCTION ABNORMAL ECG WHEN COMPARED WITH ECG OF 05-JAN-2019 23:23, NO SIGNIFICANT CHANGE WAS FOUND Confirmed by MD Juan Manuel, Chucky ([id number]) on 01/06/2019 4:34:23 PM Referred By: LAURYN RASMUSSEN Confirmed By:Chucky Zambrano MD
--- NOTE | 2019-01-07 10:33 | EKG ---
Test Reason : Blood Pressure : / mmHG Vent. Rate : 066 BPM Atrial Rate : 264 BPM P-R Int : 000 ms QRS Dur : 102 ms QT Int : 444 ms P-R-T Axes : 087 009 042 degrees QTc Int : 465 ms ATRIAL FLUTTER WITH 4:1 A-[address] ELEVATION CONSIDER INFERIOR INJURY OR ACUTE INFARCT ACUTE HI / STEMI ABNORMAL ECG WHEN COMPARED WITH ECG OF 05-JAN-2019 10:38, NO SIGNIFICANT CHANGE WAS FOUND Confirmed by TWAN PORTILLO, ADY ([id number]) on 01/07/2019 10:33:19 AM Referred By: Confirmed By:ADY TRENT MD
--- NOTE | 2019-01-07 11:24 | CON.ID ---
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 Cardio/Vascular: Yes: CAD, HTN, Hyperlipdemia Pulmonary: Yes: Asthma ...: No Endocrine: Yes: Diabetes Mellitus - Alcohol/Substance Use Hx Alcohol Use: No - Smoking History Smoking history: Never smoked Have you smoked in the past 12 months: No Aproximately how many cigarettes per day: 0 - Social History Usual Living Arrangement: With Spouse ADL: Independent History of Recent Travel: No Home Medications - Allergies Allergies/Adverse Reactions: Allergies Allergy/AdvReac Type Severity Reaction Status Date / Time No Known Allergies Allergy Verified 11/02/17 12:00 - Home Medications Home Medications: Ambulatory Orders Isosorbide Mononitrate 30 mg PO DAILY 07/03/15 Sitagliptin Phos/Metformin HCl [Janumet 50-500 mg Tablet] 1 tab PO BID 07/03/15 Telmisartan [Micardis] 80 mg PO DAILY 07/03/15 Duloxetine HCl 30 mg PO DAILY 11/02/17 Insulin Lispro Protamin/Lispro [Humalog Mix 75-25 Kwikpen] 100 unit SQ ASDIR 06/10 Spironolactone 50 mg PO DAILY 11/02/17 Lubiprostone [Amitiza] 8 mcg PO BID 01/01/19 Zolpidem Tartrate [Ambien] 10 mg PO HS 01/01/19 Apixaban [Eliquis -] 5 mg PO BID #60 tablet 01/06/19 Atorvastatin Ca [Lipitor] 40 mg PO HS #30 tablet 01/06/19 Metoprolol Succinate [Toprol XL -] 25 mg PO DAILY #30 tab.sr.24h 01/06/19 Physical Exam Vital Signs: Vital Signs Temperature 97.7 F 01/06/19 14:30 Pulse Rate 72 01/06/19 14:30 Respiratory Rate 16 01/06/19 14:30 Blood Pressure 137/67 01/06/19 14:30 O2 Sat by Pulse Oximetry (%) 98 01/06/19 14:30 Labs: CBC, BMP 01/06/19 10:42 01/06/19 10:42
--- NOTE | 2019-01-08 15:23 | EKG ---
Test Reason : Blood Pressure : / mmHG Vent. Rate : 095 BPM Atrial Rate : 234 BPM P-R Int : 000 ms QRS Dur : 094 ms QT Int : 398 ms P-R-T Axes : 000 -09 -21 degrees QTc Int : 500 ms ATRIAL FLUTTER WITH VARIABLE A-V BLOCK INFERIOR INFARCT (CITED ON OR BEFORE 15-SEP-2013) ABNORMAL ECG WHEN COMPARED WITH ECG OF 01-JAN-2019 16:31, ATRIAL FLUTTER HAS REPLACED SINUS RHYTHM MINIMAL CRITERIA FOR ANTERIOR INFARCT ARE NO LONGER PRESENT ST NOW DEPRESSED IN INFERIOR LEADS Confirmed by DAYAN TORRES MD ([id number]) on 01/08/2019 3:23:12 PM Referred By: KOLE RASMUSSEN Confirmed By:DAYAN TORRES MD
== END 2019-01-06 16:16 | disposition home or self-care (01) | DRG 65 ==
LOC: FER 15:54 → FM/S 17:55
PROVIDERS: ADMIT Internal Medicine; ATTEND Nurse Practitioner Acute Care
DX: I63.89 Other cerebral infarction (principal); I50.30 Unspecified diastolic (congestive) heart failure; H54.7 Unspecified visual loss; I25.10 Atherosclerotic heart disease of native coronary artery without angina pectoris; E11.40 Type 2 diabetes mellitus with diabetic neuropathy, unspecified; E78.5 Hyperlipidemia, unspecified; K21.9 Gastro-esophageal reflux disease without esophagitis; I10 Essential (primary) hypertension; J45.909 Unspecified asthma, uncomplicated; I16.0 Hypertensive urgency; I11.0 Hypertensive heart disease with heart failure; H53.149 Visual discomfort, unspecified; F41.9 Anxiety disorder, unspecified; M17.12 Unilateral primary osteoarthritis, left knee; E11.51 Type 2 diabetes mellitus with diabetic peripheral angiopathy without gangrene; I48.91 Unspecified atrial fibrillation; R11.2 Nausea with vomiting, unspecified; I44.0 Atrioventricular block, first degree; Z95.5 Presence of coronary angioplasty implant and graft; Z85.3 Personal history of malignant neoplasm of breast; Z86.73 Personal history of transient ischemic attack (TIA), and cerebral infarction without residual deficits; Z79.4 Long term (current) use of insulin
CPT/HCPCS: 36415; 70450-TC; 70551-TC; 71045-TC-FY; 73562-TC-LT-FY; 73700-TC-RT; 80048; 80053; 80061; 80076; 81003; 81015; 82465; 82550; 82607; 82962; 83036; 83605; 83718; 83721; 83735; 84443; 84478; 84484; 84550; 85025; 85027; 85610; 85651; 86140; 86850; 86900; 86901; 87040; 93005; 93306-TC; 93880-TC; 97116-GP; 97162-GP; 99285-25; J0131; J1644; J7030

== ENCOUNTER 2019-08-04 15:44 | Inpatient (IN) | payer OTHER, BC ==
--- NOTE | 2019-08-04 15:58 | PDOC ---
History of Present Illness - General Chief Complaint: Edema Stated Complaint: RIGHT LOWER LEG SWOLLEN Time Seen by Provider: 08/04/19 15:55 History Source: Patient, Family Exam Limitations: No Limitations - History of Present Illness Initial Comments: 08/04/19 15:57 HPI 78 year-old female with a PMH significant for HTN, HLD, CAD s/p [place] s/p stent, CVA 2009 and 2019, asthma, Type II IDDM, PVD, and left breast cancer, PAF on Eliquis, presenting with acute RLE pain, redness and swelling x 3 days. pt noted vacuum drain cleaner plumber fell over and struck the back of her RLE about 6 days ago preceding the development of RLE pain/redness/swelling. yesterday, she noted fever, Tmax 102, took tylenol last night with improvement. Denies fever, chills, chest pain, SOB, palpitation, dizziness, weakness, N, V, D , abdominal pain, bladder and bowel problems, focal weakness/paresthesias, leg swelling/pain, rash. No sick contacts or travel. No new changes in medications. No suspicious food intake Allergies: None Past Medical History/PSH: as above Social history: Lives with family. No tobacco, ETOH or drug use. Meds: as documented in EMR Family history: noncontributory PMD: Dr Amando Bains Review of systems Constitutional: + fevers or chills. No weakness HEENT: no headache or dizziness. CVS: no cp or syncope. Resp: no sob. No cough. Gastrointestinal: no abdominal pain, nausea, vomiting, diarrhea. Genitourinary: no urinary sx, hematuria. MUSCULOSKELETAL: No joint pain and swelling. No neck or back pain. +RLE pain. SKIN: +redness, +wound, +ulcer. +leg swelling. Hematologic: no easy bruising/bleeding. NEUROLOGIC: No headache, dizziness, LOC or altered mental status. No weakness, numbness or tingling. Psych: no anxiety or depression Allergic/Immunologic: no allergies All other systems reviewed and negative, or as documented in HPI. Physical exam General: Well appearing, awake and alert, NAD. HEENT: NCAT, PERRL, EOMI, clear conjunctiva, anicteric, moist mucus membranes, clear oropharynx, no oral lesions.. Neck: neck supple, FROM Resp: CTAB, normal and even respirations, no respiratory distress CVS: RRR, no murmurs, 2+ peripheral pulses throughout, no peripheral edema Abdomen: soft, NTND, no rebound or guarding. Back: nontender, normal inspection and ROM MSK: no edema, NICHOLS x4, ROM intact. No clubbing or cyanosis. normal bulk and tone. Extremities: +RLE calf ulcer measuring 2x3cm, dry and superficial. +RLE lovelace redness, swelling and skin discoloration, 4+ pitting edema in RLE. Neuro: alert, oriented appropriately; no focal neurologic deficits, 5/5 plantar and dorsi flexion. Psych: Calm and cooperative Skin: warm and well perfused, cap refill <2 sec, normal color, + skin discoloration in RLE with erythema, warmth, swelling and significant U/L swellling. 08/04/19 16:44 08/04/19 16:48 08/04/19 18:16 Past History - Past Medical History Allergies/Adverse Reactions: Allergies Allergy/AdvReac Type Severity Reaction Status Date / Time No Known Allergies Allergy Verified 08/04/19 15:47 Home Medications: Ambulatory Orders Apixaban [Eliquis] 5 mg PO BID 08/04/19 Clopidogrel Bisulfate [Plavix] 75 mg PO DAILY 08/04/19 Empagliflozin [Jardiance] 1 tab PO DAILY 08/04/19 Insulin Lispro Protamin/Lispro [Humalog Mix 75-25 Vial] 10 units SQ ASDIR Isosorbide Dinitrate [Isordil] 30 mg PO DAILY 08/04/19 Lubiprostone [Amitiza] 8 mcg PO BID 08/04/19 Metoprolol Succinate [Toprol Xl] 25 mg PO DAILY 08/04/19 Nifedipine [Nifedipine ER] 60 mg PO BID 08/04/19 Sitagliptin Phos/Metformin HCl [Janumet 50-500 mg Tablet] 1 each PO BID Spironolactone 50 mg PO DAILY 08/04/19 Telmisartan 80 mg PO DAILY 08/04/19 Anemia: No Asthma: Yes Cancer: Yes (LT BREAST) Cardiac Disorders: Yes (CORONARY ATHEROSCLEROSIS) CVA: Yes (STROKE) COPD: No CHF: No Dementia: No Diabetes: Yes (IDDM,DIABETIC NEUROPATHY) GI Disorders: Yes (DIVERTICULAR DISEASE OF THE COLON,INTERNAL HEMORRHOIDS,GERD, CONSTIPATION) Disorders: No HTN: Yes Hypercholesterolemia: Yes Liver Disease: No Seizures: No Thyroid Disease: No - Surgical History Abdominal Surgery: Yes Appendectomy: No Cardiac Surgery: Yes (CARDIAC STENT 2X) Cholecystectomy: Yes Lung Surgery: No Neurologic Surgery: No Orthopedic Surgery: Yes (right ankle sx- screws) - Immunization History Immunization Up to Date: Yes - Psycho Social/Smoking Cessation Hx Smoking Status: No Smoking History: Never smoked Have you smoked in the past 12 months: No Number of Cigarettes Smoked Daily: 0 Hx Alcohol Use: No Drug/Substance Use Hx: No Substance Use Type: None Hx Substance Use Treatment: No ED Treatment Course - LABORATORY CBC & Chemistry Diagram: 08/04/19 16:40 08/04/19 16:40 - RADIOLOGY Radiology Studies Ordered: Category Date Time Status DUPLEX VASCUL US-1 LEG [US] Stat Ultrasound 08/04/19 15:56 Ordered Medical Decision Making - Medical Decision Making 08/04/19 16:47 Vital Signs Temp Pulse Resp BP Pulse Ox 99.5 F 85 18 151/70 98 08/04/19 15:46 08/04/19 15:46 08/04/19 15:46 08/04/19 15:46 08/04/19 15:46 VS reviewed here, afebrile, BP appropriate, no tachy. no respiratory distress no septic features. ddx. DVT, superficial thrombophlebitis, PVD, ischemic limb, compartment syndrome. nec fasciitis, cellulitis, soft tissue infection, bacteremia considered, but unlikely ischemic limb with neurovasc status intact. soft compartments. small ulcer to posterior RLE calf. initial trigger likely trauma proceeded to erythema/warmth, tenderness and swelling. plan for duplex RLE to eval for DVT infectious workup, blood cultures xray unremarkable for acute pathology, no gas, no bony abnormalities. basic labs/crp/esr to eval for infectious etiology - +leukocytosis, c/w infection/inflammation duplex neg for DVT IV abx for cellulitis, vanc and zosyn given h/o PVD, age, medical comorbidities and risk of pseudomonas/mrsa and extent of her cellulitis, which is also demarcated. admit to medical service. admit to [facility], Dr Bran as pt's primary doctor, does not come to [facility] 08/04/19 18:15 Discharge - Discharge Information Problems reviewed: Yes Clinical Impression/Diagnosis: Cellulitis of right lower extremity Condition: Stable - Admission Yes - Follow up/Referral Referrals: Amando Bains MD [Primary Care Provider] - - Patient Discharge Instructions - Post Discharge Activity
[2019-08-04] MEDS ORDERED: ACETAMINOPHEN 325 MG TABLET (FP) PO ONE (16:15)
[2019-08-04] MEDS ORDERED: ACETAMINOPHEN 500 MG TABLET (FP) ONE (16:18)
[2019-08-04 17:12] LABS: RDW 11.7 % (11.6-15.6)
[2019-08-04 17:13] LABS: ACTIVATED PTT 32.5 SECONDS (25.2-36.5)
[2019-08-04 17:15] LABS: HEMATOCRIT 39.8 % (32.4-45.2); HEMOGLOBIN 13.8 GM/dl (10.7-15.3); MCH 32.1 pg (25.7-33.7); MCHC 34.6 g/dl (32.0-36.0); MEAN CELL VOLUME 92.7 fl (80-96); MEAN PLT VOLUME 11.1 fl (7.5-11.1); PLATELET COUNT 199 K/MM3 (134-434); RBC 4.29 M/mm3 (3.60-5.2); WHITE BLOOD COUNT 15.1 K/mm3 (4.0-10.8)
[2019-08-04 17:17] LABS: INR 1.6 (0.82-1.09); PROTHROMBIN TIME (PATIENT) 17.7 SEC (10.2-13.0)
[2019-08-04 17:20] LABS: ALBUMIN 3.4 g/dl (3.4-5.0); BILIRUBIN,TOTAL 1.7 mg/dl (0.2-1); CALCIUM 9.1 mg/dl (8.5-10); CREATININE 0.9 mg/dl (0.55-1.3); POTASSIUM 3.6 mmol/L (3.5-5.1); TOT PROT 6.4 g/dl (6.4-8.2)
[2019-08-04] MEDS ORDERED: PIPERACILLIN/TAZOB 4.5 GM 4.5 GM in DEXTROSE 5%-WATER 100 ML IVPB ONE (17:44)
[2019-08-04] MEDS ORDERED: VANCOMYCIN 1,250 MG in DEXTROSE 5%-WATER - 250 ML IVPB ONE (17:44)
[2019-08-04] MEDS ORDERED: PIPERACILLIN/TAZOBACTAM 4.5 GM VIAL IVPB ONE (17:58)
[2019-08-04] MEDS ORDERED: VANCOMYCIN 1,000 MG VIAL (RESTRICTED TO ID ONLY) ONE (17:58)
[2019-08-04] MEDS ORDERED: VANCOMYCIN 500 MG VIAL (RESTRICTED TO ID ONLY) ONE (17:58)
[2019-08-04 18:11] LABS: PLATELET ESTIMATE ADEQUATE
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
[2019-08-04] MEDS ORDERED: ACETAMINOPHEN 325 MG TABLET (FP) PO PRN (20:16)
[2019-08-04] MEDS ORDERED: VANCOMYCIN 1 GM in D5W (PRE-DOCKED) 1,000 MG/250 ML IVPB SCH (20:30)
[2019-08-04 20:47] VITALS: BMI 27.6
[2019-08-04] MEDS: CLINDAMYCIN 600MG PREMIX IVPB 600 MG/50 ML BAG IVPB SCH (21:52)
[2019-08-04] MEDS: INSULIN SLIDING SCALE (NOVOLOG) 1 VIAL SQ SCH (22:04)
[2019-08-04] MEDS: SODIUM CHLORIDE 1,000 ML IV SCH (22:04)
[2019-08-05] MEDS ORDERED: PIPERACILLIN/TAZOB 3.375 GM 3.375 GM in DEXTROSE 5%-WATER - 50 ML IVPB SCH (02:00)
[2019-08-05] MEDS: CLINDAMYCIN 600MG PREMIX IVPB 600 MG/50 ML BAG IVPB SCH ×2 (02:38→09:57)
[2019-08-05] MEDS ORDERED: DEXTROSE 5%-WATER - 50 ML IVPB ONE ×2 (03:29→09:09)
[2019-08-05] MEDS ORDERED: PIPERACILLIN/TAZOBACTAM 3.375 GM VIAL IVPB ONE ×3 (03:29→18:18)
[2019-08-05] MEDS ORDERED: VANCOMYCIN 1 GRAM (PRE-DOCKED) 1,000 MG/250 ML BAG IVPB ONE (06:00)
--- NOTE | 2019-08-05 07:46 | CONSULT ---
- Consultation REQUESTING PROVIDER: CONSULT REQUEST: We have been asked to surgically evaluate this patient for RLE Cellulitis PCP:Rachel Gallegos HISTORY OF PRESENT ILLNESS: VASCULAR SURGERY Surgical team was consulted to evaluate for RLE cellulitis. 78yo F states pain and swelling started 4 days ago and continued to get worse. Pt states has history of venous insufficiency and swelling in her leg, but does not wear compression stockings as too difficult to put on. Pt denies every having cellulitis or hospitalized for infection of the leg. Pt denies any other vascular disease or surgery. PMHx: HTN, HLD, CAD s/p [place] s/p stent, CVA x 2 (2008, 12/2018), atrial fibrillation on Eliquis, diastolic heart failure, asthma, Type II IDDM, PVD, and left breast cancer Home Medications Medication Instructions Recorded Apixaban [Eliquis] 5 mg PO BID 08/04/19 Clopidogrel Bisulfate [Plavix] 75 mg PO DAILY 08/04/19 Empagliflozin [Jardiance] 1 tab PO DAILY 08/04/19 Insulin Lispro Protamin/Lispro 10 units SQ ASDIR 08/04/19 [Humalog Mix 75-25 Vial] Isosorbide Dinitrate [Isordil] 30 mg PO DAILY 08/04/19 Lubiprostone [Amitiza] 8 mcg PO BID 08/04/19 Metoprolol Succinate [Toprol Xl] 25 mg PO DAILY 08/04/19 Nifedipine [Nifedipine ER] 60 mg PO BID 08/04/19 Sitagliptin Phos/Metformin HCl 1 each PO BID 08/04/19 [Janumet 50-500 mg Tablet] Spironolactone 50 mg PO DAILY 08/04/19 Telmisartan 80 mg PO DAILY 08/04/19 Zolpidem Tartrate [Ambien] 5 mg PO PRN 08/04/19 Allergies Allergy/AdvReac Type Severity Reaction Status Date / Time No Known Allergies Allergy Verified 08/04/19 15:47 PHYSICAL EXAM: GENERAL: Awake, alert, and fully oriented, in no acute distress. HEAD: Normal with no signs of trauma. EYES: PERRL, sclera anicteric, conjunctiva clear. NECK: Normal ROM, supple without lymphadenopathy, JVD, or masses. LUNGS: breathing comfortably, No accessory muscle use. HEART: Regular rate and rhythm. UPPER EXTREMITIES: warm, well-perfused. No cyanosis. Cap refill <2 seconds. No peripheral edema. RLE: dopplerable DP and PT pulses, deep erythema from foot to lovelace, circumferential, no pus, no drainage, no blisters; exquisitely tender NEUROLOGICAL: Normal speech, gait not observed. PSYCH: Cooperative. Good eye contact. Appropriate mood and affect. SKIN: Warm, dry, normal turgor, no rashes or lesions noted. Vital Signs Temperature 98.7 F 08/05/19 04:00 Pulse Rate 77 08/05/19 04:00 Respiratory Rate 18 08/05/19 04:00 Blood Pressure 111/47 L 08/05/19 04:00 O2 Sat by Pulse Oximetry (%) 92 L 08/05/19 04:00 Lab Results WBC 15.1 K/mm3 (4.0-10.8) H 08/04/19 16:40 RBC 4.29 M/mm3 (3.60-5.2) 08/04/19 16:40 Hgb 13.8 GM/dl (10.7-15.3) 08/04/19 16:40 Hct 39.8 % (32.4-45.2) D 08/04/19 16:40 MCV 92.7 fl (80-96) 08/04/19 16:40 MCHC 34.6 g/dl (32.0-36.0) 08/04/19 16:40 RDW 11.7 % (11.6-15.6) 08/04/19 16:40 Plt Count 199 K/MM3 (134-434) 08/04/19 16:40 Sodium 133 mmol/L (136-145) L 08/04/19 16:40 Potassium 3.6 mmol/L (3.5-5.1) 08/04/19 16:40 Chloride 101 mmol/L (98-107) 08/04/19 16:40 Carbon Dioxide 24 mmol/L (21-32) 08/04/19 16:40 Anion Gap 8 MMOL/L (8-16) 08/04/19 16:40 BUN 22.0 mg/dl (7-18) H 08/04/19 16:40 Creatinine 0.9 mg/dl (0.55-1.3) 08/04/19 16:40 Random Glucose 202 mg/dl (74-106) H 08/04/19 16:40 Calcium 9.1 mg/dl (8.5-10) 08/04/19 16:40 Blood Type A POSITIVE 08/04/19 21:00 Antibody Screen Negative 08/04/19 21:00 INR 1.60 (0.82-1.09) H 08/04/19 16:40 Problem List - Problems (1) Cellulitis of right lower extremity Assessment/Plan: Plan -pt appears to have significant cellulitis of RLE, do not believe she has nec fasc, but will follow up official CT read -no need for surgical intervention at this time -IV abx per ID/med -compression stocking/dressing once cellulitis has resolved -pt may follow up with wound care clinic as outpatient Pt discussed with Dr. Krishna, who agrees with plan Code(s): L03.115 - CELLULITIS OF RIGHT LOWER LIMB
[2019-08-05 08:03] LABS: BASO % 0.2 % (0-2.0); EOS % 0.3 % (0-4.5); HEMATOCRIT 36.3 % (32.4-45.2); HEMOGLOBIN 12.3 GM/dl (10.7-15.3); LYMPH % 11.9 % (8-40); MCH 31.6 pg (25.7-33.7); MCHC 33.8 g/dl (32.0-36.0); MEAN CELL VOLUME 93.6 fl (80-96); NEUT % 80.6 % (42.8-82.8); PLATELET COUNT 166 K/MM3 (134-434); RBC 3.88 M/mm3 (3.60-5.2); RDW 11.5 % (11.6-15.6); WHITE BLOOD COUNT 10.5 K/mm3 (4.0-10.8)
[2019-08-05 08:10] LABS: ALBUMIN 2.7 g/dl (3.4-5.0); BILIRUBIN,TOTAL 2.2 mg/dl (0.2-1); CALCIUM 8.2 mg/dl (8.5-10); CREATININE 0.8 mg/dl (0.55-1.3); MAGNESIUM 1.8 mg/dL (1.8-2.4); POTASSIUM 3.6 mmol/L (3.5-5.1); TOT PROT 5.2 g/dl (6.4-8.2)
[2019-08-05] MEDS: INSULIN SLIDING SCALE (NOVOLOG) 1 VIAL SQ SCH ×4 (08:18→21:34)
--- NOTE | 2019-08-05 08:28 | PN ---
Physical Exam: SUBJECTIVE: Patient seen and examined OBJECTIVE: Vital Signs Period Temp Pulse Resp BP Sys/Mills Pulse Ox Last 24 Hr 98.2 F-99.7 F 73-85 16-19 105-151/43-70 92-99 GENERAL: Awake, alert, and fully oriented. Tearful, anxious. LUNGS: Breath sounds equal, clear to auscultation bilaterally. No wheezes, and no crackles. No accessory muscle use. HEART: Regular rate and rhythm, S1 and S2 ABDOMEN: Soft, nontender, not distended UPPER EXTREMITIES: 2+ pulses, warm, well-perfused. No cyanosis. No clubbing. No peripheral edema. RIGHT LOWER EXTREMITY: dopplerable DP and PT pulses, toes sightly cool, deep erythema from foot to lovelace, circumferential, skin break medial aspect of lower leg, no pus, no drainage, no blisters; exquisitely tender NEUROLOGICAL: Cranial nerves II-XII intact. Normal speech. Laboratory Results - last 24 hr 08/04/19 08/04/19 08/04/19 16:40 16:40 16:40 WBC 15.1 H RBC 4.29 Hgb 13.8 Hct 39.8 D MCV 92.7 MCH 32.1 MCHC 34.6 RDW 11.7 Plt Count 199 MPV 11.1 Absolute Neuts (auto) 13.2 Neutrophils % No Result Required. Neutrophils % (Manual) 88.0 H Lymphocytes % No Result Required. Lymphocytes % (Manual) 9.0 Monocytes % Monocytes % (Manual) 3 L Eosinophils % Basophils % Platelet Estimate Adequate ESR 66 H PT with INR INR PTT (Actin FS) Sodium 133 L Potassium 3.6 Chloride 101 Carbon Dioxide 24 Anion Gap 8 BUN 22.0 H Creatinine 0.9 Est GFR (CKD-EPI)AfAm 71.48 Est GFR (CKD-EPI)NonAf 61.67 POC Glucometer Random Glucose 202 H Lactic Acid Calcium 9.1 Magnesium Total Bilirubin 1.7 H AST 21 ALT 18 Alkaline Phosphatase 59 C-Reactive Protein Total Protein 6.4 Albumin 3.4 Blood Type Antibody Screen 08/04/19 08/04/19 08/04/19 16:40 16:40 21:00 WBC RBC Hgb Hct MCV MCH MCHC RDW Plt Count MPV Absolute Neuts (auto) Neutrophils % Neutrophils % (Manual) Lymphocytes % Lymphocytes % (Manual) Monocytes % Monocytes % (Manual) Eosinophils % Basophils % Platelet Estimate ESR PT with INR 17.7 H INR 1.60 H PTT (Actin FS) 32.5 Sodium Potassium Chloride Carbon Dioxide Anion Gap BUN Creatinine Est GFR (CKD-EPI)AfAm Est GFR (CKD-EPI)NonAf POC Glucometer Random Glucose Lactic Acid Calcium Magnesium Total Bilirubin AST ALT Alkaline Phosphatase C-Reactive Protein 18.8 H Total Protein Albumin Blood Type A POSITIVE Antibody Screen Negative 08/04/19 08/04/19 08/05/19 21:00 21:59 06:30 WBC RBC Hgb Hct MCV MCH MCHC RDW Plt Count MPV Absolute Neuts (auto) Neutrophils % Neutrophils % (Manual) Lymphocytes % Lymphocytes % (Manual) Monocytes % Monocytes % (Manual) Eosinophils % Basophils % Platelet Estimate ESR PT with INR INR PTT (Actin FS) Sodium Potassium Chloride Carbon Dioxide Anion Gap BUN Creatinine Est GFR (CKD-EPI)AfAm Est GFR (CKD-EPI)NonAf POC Glucometer 183 168 Random Glucose Lactic Acid 1.9 Calcium Magnesium Total Bilirubin AST ALT Alkaline Phosphatase C-Reactive Protein Total Protein Albumin Blood Type Antibody Screen 08/05/19 08/05/19 06:44 06:44 WBC 10.5 RBC 3.88 Hgb 12.3 Hct 36.3 MCV 93.6 MCH 31.6 MCHC 33.8 RDW 11.5 L Plt Count 166 MPV 12.0 H Absolute Neuts (auto) 8.5 Neutrophils % 80.6 Neutrophils % (Manual) Lymphocytes % 11.9 Lymphocytes % (Manual) Monocytes % 7.0 Monocytes % (Manual) Eosinophils % 0.3 Basophils % 0.2 Platelet Estimate ESR PT with INR INR PTT (Actin FS) Sodium 135 L Potassium 3.6 Chloride 101 Carbon Dioxide 26 Anion Gap 8 BUN 15.0 Creatinine 0.8 Est GFR (CKD-EPI)AfAm 82.42 Est GFR (CKD-EPI)NonAf 71.11 POC Glucometer Random Glucose 183 H Lactic Acid Calcium 8.2 L Magnesium 1.8 Total Bilirubin 2.2 H AST 17 ALT 16 Alkaline Phosphatase 46 D C-Reactive Protein Total Protein 5.2 L Albumin 2.7 L Blood Type Antibody Screen Active Medications Generic Name Dose Route Start Last Admin Trade Name Freq PRN Reason Stop Dose Admin Acetaminophen 650 mg 08/04/19 20:16 Tylenol - PO Q6H PRN PAIN LEVEL 1-5 Clindamycin Phosphate 600 mg in 50 mls @ 100 mls/hr 08/04/19 20:15 08/05/19 02:38 Cleocin 600 Mg Premix Ivpb - IVPB 100 mls/hr Q8H-IV [facility] Administration Protocol Sodium Chloride 1,000 mls @ 75 mls/hr 08/04/19 20:30 08/04/19 22:04 Normal Saline - IV 75 mls/hr ASDIR [facility] Administration Piperacillin Sod/Tazobactam 50 mls @ 100 mls/hr 08/05/19 02:00 Sod 3.375 gm/ Dextrose IVPB Q8H-IV [facility] Protocol Piperacillin Sod/Tazobactam 50 mls @ 100 mls/hr 08/05/19 02:00 08/05/19 02:38 Sod 3.375 gm/ Dextrose IVPB 08/05/19 18:29 100 mls/hr Q8H-IV [facility] Administration Insulin Aspart 1 vial 08/04/19 22:00 08/05/19 08:18 Novolog Vial Sliding Scale - SQ Not Given ACHS [facility] Protocol Vancomycin HCl 1,000 mg 08/04/19 20:30 Vancomycin (Pre-Docked) IVPB Q12H [facility] Protocol ASSESSMENT/PLAN: 78 year-old female with a PMH significant for HTN, HLD, CAD s/p [place] s/p stent, CVA x 2 (2008, 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 Admitted for RLE cellulitis. Right lower extremity cellulitis --08/04 CT: diffuse subq edema consistent with cellulitis, no signs of abscess or osteo --continue vanc (day #2) and Zosyn (day #2) --seen by vascular, no surgical intervention --ID following Hypertension --BP stable --continue nifedipine, telmisartan, spironolactone Hyperlipidemia --not on statin therapy Coronary artery disease --continue Plavix, isosorbide, ToprolXL; not on ASA Diastolic heart failure --continue ToprolXL, telmisartan, spironolactone CVAs --continue Plavix; not on ASA, statin Atrial fibrillation --continue Toprol XL for rate control --continue Eliquis Asthma -stable Type II IDDM --Novolog sliding scale coverage Peripheral vascular disease Left breast cancer --stable FEN Fluids: PO intake adequate Electrolytes: replete as indicated Nutrition: NPO DVT prophylaxis: on Eliquis Physical therapy Dispo: continues to require inpatient care. Full code. Visit type - Emergency Visit Emergency Visit: Yes ED Registration Date: 08/04/19 Care time: The patient presented to the Emergency Department on the above date and was hospitalized for further evaluation of their emergent condition. - New Patient This patient is new to me today: No - Critical Care Critical Care patient: No
[2019-08-05] MEDS: PIPERACILLIN/TAZOB 3.375 GM 3.375 GM in SODIUM CHLORIDE 50 ML IVPB SCH ×2 (09:57→18:40)
--- NOTE | 2019-08-05 10:44 | EKG ---
Test Reason : Blood Pressure : / mmHG Vent. Rate : 072 BPM Atrial Rate : 072 BPM P-R Int : 272 ms QRS Dur : 084 ms QT Int : 392 ms P-R-T Axes : 069 -02 020 degrees QTc Int : 429 ms SINUS RHYTHM WITH 1ST DEGREE A-V BLOCK POSSIBLE ANTERIOR INFARCT , AGE UNDETERMINED ABNORMAL ECG Confirmed by Burak Niño MD ([id number]) on 08/05/2019 10:44:14 AM Referred By: DR MUNIZ Confirmed By:Burak Niño MD
--- NOTE | 2019-08-05 15:36 | CON.ID ---
Consult Consult Specialty:: infectious diseases Referred by:: Annie Reason for Consultation:: cellulitis of the leg - History of Present Illness Chief Complaint: pain and swelling of the rt leg History of Present Illness: 78 year-old female with a PMH significant for HTN, HLD, CAD s/p AR s/p stent, CVA 2008 and 2018, asthma, Type II IDDM, PVD, and left breast cancer, PAF on Eliquis, presenting with acute RLE pain, redness and swelling x 3 days. pt noted vacuum carpet cleaner fell over and struck the back of her RLE about 6 days ago preceding the development of RLE pain/redness/swelling. yesterday, she noted fever, Tmax 102, took tylenol last night with improvement. 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 Cardio/Vascular: Yes: CAD, HTN, Hyperlipdemia Pulmonary: Yes: Asthma Endocrine: Yes: Diabetes Mellitus - Alcohol/Substance Use Hx Alcohol Use: No - Smoking History Smoking history: Never smoked Have you smoked in the past 12 months: No Aproximately how many cigarettes per day: 0 - Social History Usual Living Arrangement: With Spouse ADL: Independent History of Recent Travel: No Home Medications - Allergies Allergies/Adverse Reactions: Allergies Allergy/AdvReac Type Severity Reaction Status Date / Time No Known Allergies Allergy Verified 08/04/19 15:47 - Home Medications Home Medications: Ambulatory Orders Apixaban [Eliquis] 5 mg PO BID 08/04/19 Clopidogrel Bisulfate [Plavix] 75 mg PO DAILY 08/04/19 Empagliflozin [Jardiance] 1 tab PO DAILY 08/04/19 Insulin Lispro Protamin/Lispro [Humalog Mix 75-25 Vial] 10 units SQ ASDIR Isosorbide Dinitrate [Isordil] 30 mg PO DAILY 08/04/19 Lubiprostone [Amitiza] 8 mcg PO BID 08/04/19 Metoprolol Succinate [Toprol Xl] 25 mg PO DAILY 08/04/19 Nifedipine [Nifedipine ER] 60 mg PO BID 08/04/19 Sitagliptin Phos/Metformin HCl [Janumet 50-500 mg Tablet] 1 each PO BID Spironolactone 50 mg PO DAILY 08/04/19 Telmisartan 80 mg PO DAILY 08/04/19 Zolpidem Tartrate [Ambien] 5 mg PO PRN 08/04/19 Review of Systems - Review of Systems Constitutional: reports: Fever Eyes: reports: No Symptoms HENT: reports: No Symptoms Neck: reports: No Symptoms Cardiovascular: reports: No Symptoms Respiratory: reports: No Symptoms Gastrointestinal: reports: No Symptoms Genitourinary: reports: No Symptoms Musculoskeletal: reports: Other Integumentary: reports: Blister, Change in Color, Erythema, Other Neurological: reports: No Symptoms Endocrine: reports: No Symptoms Hematology/Lymphatic: reports: No Symptoms Psychiatric: reports: No Symptoms Physical Exam Vital Signs: Vital Signs Temperature 98.9 F 08/05/19 14:04 Pulse Rate 83 08/05/19 14:04 Respiratory Rate 16 08/05/19 14:04 Blood Pressure 123/53 L 08/05/19 14:04 O2 Sat by Pulse Oximetry (%) 97 08/05/19 14:04 Constitutional: Yes: Well Nourished, Calm, Mild Distress Eyes: Yes: Conjunctiva Clear HENT: Yes: Atraumatic, Normocephalic Neck: Yes: Supple, Trachea Midline Cardiovascular: Yes: Regular Rate and Rhythm Respiratory: Yes: Regular, CTA Bilaterally Gastrointestinal: Yes: Normal Bowel Sounds, Soft Musculoskeletal: Yes: Other Extremities: Yes: Erythema, Other Integumentary: Yes: Erythema Neurological: Yes: Alert, Oriented Psychiatric: Yes: Alert, Oriented Labs: CBC, BMP 08/05/19 06:44 08/05/19 06:44 Imaging - Results Chest X-ray: Report Reviewed, Image Reviewed Cat Scan: Report Reviewed, Image Reviewed Assessment/Plan 78 year-old female with a PMH significant for HTN, HLD, CAD s/p AR s/p stent, CVA x 2 (2008, 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 Admitted for RLE cellulitis. Right lower extremity cellulitis Hypertension Hyperlipidemia Coronary artery disease CVAs Atrial fibrillation Diastolic heart failure asthma Type II IDDM Left breast cancer plan agree with vanco and zosyn elevation of the leg
[2019-08-05] MEDS ORDERED: SODIUM CHLORIDE 50 ML IVPB ONE (18:18)
[2019-08-05] MEDS: NIFEdipine E.R 60 MG TABLET PO SCH ×2 (18:35→21:34)
[2019-08-05] MEDS: SPIRONOLACTONE 25 MG TABLET (FP) PO SCH (18:35)
[2019-08-05] MEDS: APIXABAN 5 MG TABLET PO SCH ×2 (18:35→21:34)
[2019-08-05] MEDS: CLOPIDOGREL BISULFATE 75 MG TABLET (FP) PO SCH (18:36)
[2019-08-05] MEDS: metoPROLOL SUCCINATE 25 MG TAB.SR.24H (FP) PO SCH (18:36)
[2019-08-05] MEDS: ISOSORBIDE MONONITRATE 30 MG TAB.SR.24H (FP) PO SCH (18:36)
[2019-08-05] MEDS: VALSARTAN 160 MG TABLET (UD) PO SCH (18:39)
[2019-08-05] MEDS: VANCOMYCIN HCL 1,250 MG in SODIUM CHLORIDE 250 ML IVPB SCH (20:15)
[2019-08-05] MEDS: SODIUM CHLORIDE 1,000 ML IV SCH (21:34)
[2019-08-05] MEDS ORDERED: PATIENT'S OWN MEDICATION (NON-FORMULARY) (Lubiprostone [Amitiza] 8 MCG) PO SCH (22:00)
[2019-08-06] MEDS ORDERED: PIPERACILLIN/TAZOBACTAM 3.375 GM VIAL IVPB ONE ×3 (01:01→18:04)
[2019-08-06] MEDS ORDERED: DEXTROSE 5%-WATER - 50 ML IVPB ONE (01:02)
[2019-08-06] MEDS ORDERED: PIPERACILLIN/TAZOB 3.375 GM 3.375 GM in DEXTROSE 5%-WATER - 50 ML IVPB SCH (02:00)
[2019-08-06] MEDS ORDERED: PIPERACILLIN/TAZOB 3.375 GM 3.375 GM in SODIUM CHLORIDE 50 ML IVPB SCH (02:00)
[2019-08-06] MEDS: INSULIN SLIDING SCALE (NOVOLOG) 1 VIAL SQ SCH ×4 (06:36→22:11)
[2019-08-06 07:31] LABS: BASO % 0.2 % (0-2.0); EOS % 1.8 % (0-4.5); HEMATOCRIT 37.1 % (32.4-45.2); HEMOGLOBIN 12.5 GM/dl (10.7-15.3); LYMPH % 17.2 % (8-40); MCH 31.3 pg (25.7-33.7); MCHC 33.5 g/dl (32.0-36.0); MEAN CELL VOLUME 93.3 fl (80-96); MEAN PLT VOLUME 11.5 fl (7.5-11.1); MONO % 8.7 % (3.8-10.2); NEUT % 72.1 % (42.8-82.8); PLATELET COUNT 178 K/MM3 (134-434); RBC 3.98 M/mm3 (3.60-5.2); RDW 11.8 % (11.6-15.6); WHITE BLOOD COUNT 8.1 K/mm3 (4.0-10.8)
[2019-08-06 07:38] LABS: ALBUMIN 2.6 g/dl (3.4-5.0); BILIRUBIN,TOTAL 1.4 mg/dl (0.2-1); CALCIUM 8.3 mg/dl (8.5-10); CREATININE 0.8 mg/dl (0.55-1.3); MAGNESIUM 1.8 mg/dL (1.8-2.4); POTASSIUM 3.6 mmol/L (3.5-5.1); TOT PROT 5.1 g/dl (6.4-8.2)
--- NOTE | 2019-08-06 08:22 | PN ---
Physical Exam: SUBJECTIVE: Patient seen and examined at bedside. Feels a little better today. OBJECTIVE: Vital Signs Period Temp Pulse Resp BP Sys/Mills Pulse Ox Last 24 Hr 98.3 F-99.1 F 69-83 16-18 105-134/41-53 95-97 GENERAL: Awake, alert, and fully oriented. Brighter mood. LUNGS: Breath sounds equal, clear to auscultation bilaterally. No wheezes, and no crackles. No accessory muscle use. HEART: Regular rate and rhythm, S1 and S2 ABDOMEN: Soft, nontender, not distended UPPER EXTREMITIES: 2+ pulses, warm, well-perfused. No cyanosis. No clubbing. No peripheral edema. RIGHT LOWER EXTREMITY: 1+ pulses, edema resolved, erythema resolving, improved NEUROLOGICAL: Cranial nerves II-XII intact. Normal speech. Laboratory Results - last 24 hr 08/05/19 08/05/19 08/05/19 11:50 16:48 21:29 WBC RBC Hgb Hct MCV MCH MCHC RDW Plt Count MPV Absolute Neuts (auto) Neutrophils % Lymphocytes % Monocytes % Eosinophils % Basophils % Sodium Potassium Chloride Carbon Dioxide Anion Gap BUN Creatinine Est GFR (CKD-EPI)AfAm Est GFR (CKD-EPI)NonAf POC Glucometer 164 169 172 Random Glucose Calcium Magnesium Total Bilirubin AST ALT Alkaline Phosphatase Total Protein Albumin 08/06/19 08/06/19 08/06/19 06:12 06:52 06:52 WBC 8.1 RBC 3.98 Hgb 12.5 Hct 37.1 MCV 93.3 MCH 31.3 MCHC 33.5 RDW 11.8 Plt Count 178 MPV 11.5 H Absolute Neuts (auto) 5.9 Neutrophils % 72.1 Lymphocytes % 17.2 Monocytes % 8.7 Eosinophils % 1.8 Basophils % 0.2 Sodium 139 Potassium 3.6 Chloride 107 Carbon Dioxide 25 Anion Gap 7 L BUN 12.0 Creatinine 0.8 Est GFR (CKD-EPI)AfAm 82.42 Est GFR (CKD-EPI)NonAf 71.11 POC Glucometer 153 Random Glucose 167 H Calcium 8.3 L Magnesium 1.8 Total Bilirubin 1.4 H AST 17 ALT 19 Alkaline Phosphatase 44 L Total Protein 5.1 L Albumin 2.6 L Active Medications Generic Name Dose Route Start Last Admin Trade Name Freq PRN Reason Stop Dose Admin Acetaminophen 650 mg 08/04/19 20:16 08/05/19 18:36 Tylenol - PO 650 mg Q6H PRN Administration PAIN LEVEL 1-5 Apixaban 5 mg 08/05/19 15:56 08/05/19 21:34 Eliquis - PO 5 mg BID [facility] Administration Clopidogrel Bisulfate 75 mg 08/05/19 16:00 08/05/19 18:36 Plavix - PO 75 mg DAILY [facility] Administration Sodium Chloride 1,000 mls @ 75 mls/hr 08/04/19 20:30 08/05/19 21:34 Normal Saline - IV 75 mls/hr ASDIR [facility] Administration Vancomycin HCl 1,250 mg/ 250 mls @ 250 mls/2 hr 08/05/19 15:45 08/05/19 20:15 Sodium Chloride IVPB 250 mls/2 hr Q24H [facility] Administration Protocol Piperacillin Sod/Tazobactam 50 mls @ 100 mls/hr 08/06/19 10:00 Sod 3.375 gm/ Sodium Chloride IVPB Q8H-IV [facility] Protocol Insulin Aspart 1 vial 08/04/19 22:00 08/06/19 06:36 Novolog Vial Sliding Scale - SQ Not Given ACHS [facility] Protocol Isosorbide Mononitrate 30 mg 08/05/19 16:00 08/05/19 18:36 Imdur - PO 30 mg DAILY [facility] Administration Metoprolol Succinate 25 mg 08/05/19 16:00 08/05/19 18:36 Toprol Xl - PO 25 mg DAILY [facility] Administration Nifedipine 60 mg 08/05/19 15:57 08/05/19 21:34 Procardia Xl - PO 60 mg BID [facility] Administration Non-Formulary Medication 8 mcg 08/05/19 22:00 Lubiprostone [Amitiza] PO BID [facility] Spironolactone 50 mg 08/05/19 16:00 08/05/19 18:35 Aldactone - PO 50 mg DAILY [facility] Administration Valsartan 320 mg 08/05/19 16:00 08/05/19 18:39 Diovan - PO 320 mg DAILY [facility] Administration ASSESSMENT/PLAN: 78 year-old female with a PMH significant for HTN, HLD, CAD s/p [place] s/p stent, CVA x 2 (2008, 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 Admitted for RLE cellulitis. Right lower extremity cellulitis --08/04 CT: diffuse subq edema consistent with cellulitis, no signs of abscess or osteo --continue vanc (day #3) and Zosyn (day #3); draw vanc trough --seen by vascular, no surgical intervention --ID following Hypertension --BP stable --continue nifedipine, telmisartan, spironolactone Hyperlipidemia --not on statin therapy Coronary artery disease --continue Plavix, isosorbide, ToprolXL; not on ASA Diastolic heart failure --continue ToprolXL, telmisartan, spironolactone CVAs --continue Plavix; not on ASA, statin Atrial fibrillation --continue Toprol XL for rate control --continue Eliquis Asthma -stable Type II IDDM --Novolog sliding scale coverage Peripheral vascular disease Left breast cancer --stable FEN Fluids: PO intake adequate Electrolytes: replete as indicated Nutrition: diabetic DVT prophylaxis: on Eliquis Physical therapy Dispo: continues to require inpatient care. Full code. Visit type - Emergency Visit Emergency Visit: Yes ED Registration Date: 08/04/19 Care time: The patient presented to the Emergency Department on the above date and was hospitalized for further evaluation of their emergent condition. - New Patient This patient is new to me today: No - Critical Care Critical Care patient: No
[2019-08-06] MEDS ORDERED: SODIUM CHLORIDE 50 ML IVPB ONE ×2 (09:26→18:04)
[2019-08-06] MEDS: CLOPIDOGREL BISULFATE 75 MG TABLET (FP) PO SCH (09:30)
[2019-08-06] MEDS: NIFEdipine E.R 60 MG TABLET PO SCH ×2 (09:30→21:26)
[2019-08-06] MEDS: VALSARTAN 160 MG TABLET (UD) PO SCH (09:30)
[2019-08-06] MEDS: APIXABAN 5 MG TABLET PO SCH ×2 (09:30→21:26)
[2019-08-06] MEDS: SPIRONOLACTONE 25 MG TABLET (FP) PO SCH (09:30)
[2019-08-06] MEDS: metoPROLOL SUCCINATE 25 MG TAB.SR.24H (FP) PO SCH (09:30)
[2019-08-06] MEDS: ISOSORBIDE MONONITRATE 30 MG TAB.SR.24H (FP) PO SCH (09:30)
[2019-08-06] MEDS: PIPERACILLIN/TAZOB 3.375 GM 3.375 GM in SODIUM CHLORIDE 50 ML IVPB SCH ×2 (09:30→18:19)
--- NOTE | 2019-08-06 13:52 | PN ---
Progress Note, Physician - Current Medication List Current Medications: Active Medications Acetaminophen (Tylenol -) 650 mg PO Q6H PRN PRN Reason: PAIN LEVEL 1-5 Last Admin: 08/05/19 18:36 Dose: 650 mg Apixaban (Eliquis -) 5 mg PO BID [facility] Last Admin: 08/06/19 09:30 Dose: 5 mg Clopidogrel Bisulfate (Plavix -) 75 mg PO DAILY [facility] Last Admin: 08/06/19 09:30 Dose: 75 mg Sodium Chloride (Normal Saline -) 1,000 mls @ 75 mls/hr IV ASDIR [facility] Last Admin: 08/05/19 21:34 Dose: 75 mls/hr Vancomycin HCl 1,250 mg/ (Sodium Chloride) 250 mls @ 250 mls/2 hr IVPB Q24H [facility] ; Protocol Last Admin: 08/05/19 20:15 Dose: 250 mls/2 hr Piperacillin Sod/Tazobactam (Sod 3.375 gm/ Sodium Chloride) 50 mls @ 100 mls/ hr IVPB Q8H-IV [facility]; Protocol Last Admin: 08/06/19 09:30 Dose: 100 mls/hr Insulin Aspart (Novolog Vial Sliding Scale -) 1 vial SQ ACHS [facility]; Protocol Last Admin: 08/06/19 12:01 Dose: 2 unit Isosorbide Mononitrate (Imdur -) 30 mg PO DAILY [facility] Last Admin: 08/06/19 09:30 Dose: 30 mg Metoprolol Succinate (Toprol Xl -) 25 mg PO DAILY [facility] Last Admin: 08/06/19 09:30 Dose: 25 mg Nifedipine (Procardia Xl -) 60 mg PO BID [facility] Last Admin: 08/06/19 09:30 Dose: 60 mg Non-Formulary Medication (Lubiprostone [Amitiza]) 8 mcg PO BID [facility] Spironolactone (Aldactone -) 50 mg PO DAILY [facility] Last Admin: 08/06/19 09:30 Dose: 50 mg Valsartan (Diovan -) 320 mg PO DAILY [facility] Last Admin: 08/06/19 09:30 Dose: 320 mg - Objective Vital Signs: Vital Signs Temperature 98.1 F 08/06/19 10:40 Pulse Rate 71 08/06/19 10:40 Respiratory Rate 18 08/06/19 10:40 Blood Pressure 117/46 L 08/06/19 10:40 O2 Sat by Pulse Oximetry (%) 96 08/06/19 10:43 Labs: CBC, BMP 08/06/19 06:52 08/06/19 06:52 INR, PTT INR 1.60 (0.82-1.09) H 08/04/19 16:40
[2019-08-06] MEDS ORDERED: ACETAMINOPHEN 325 MG TABLET (FP) ONE (21:06)
[2019-08-06] MEDS ORDERED: PT OWN MED DRAWER 7, Y5N ONE (21:10)
[2019-08-06] MEDS: SODIUM CHLORIDE 1,000 ML IV SCH (21:26)
[2019-08-06] MEDS: VANCOMYCIN HCL 1,250 MG in SODIUM CHLORIDE 250 ML IVPB SCH (21:26)
[2019-08-07] MEDS: PIPERACILLIN/TAZOB 3.375 GM 3.375 GM in SODIUM CHLORIDE 50 ML IVPB SCH ×3 (02:10→18:07)
[2019-08-07] MEDS ORDERED: PIPERACILLIN/TAZOBACTAM 3.375 GM VIAL IVPB ONE ×4 (02:36→23:40)
[2019-08-07] MEDS ORDERED: SODIUM CHLORIDE 50 ML IVPB ONE ×4 (02:36→23:40)
[2019-08-07] MEDS: INSULIN SLIDING SCALE (NOVOLOG) 1 VIAL SQ SCH ×4 (07:50→22:36)
[2019-08-07 08:01] LABS: ALBUMIN 2.6 g/dl (3.4-5.0); BILIRUBIN,TOTAL 1.5 mg/dl (0.2-1); CALCIUM 8.4 mg/dl (8.5-10); CREATININE 0.8 mg/dl (0.55-1.3); MAGNESIUM 1.8 mg/dL (1.8-2.4); POTASSIUM 3.5 mmol/L (3.5-5.1); TOT PROT 5.4 g/dl (6.4-8.2)
--- NOTE | 2019-08-07 08:20 | PN ---
Progress Note, Physician History of Present Illness: Patient seen and examined at bedside. Endorses mild improvement of her cellulitis. She denies nausea vomiting fever chills chest pain urinary or GI symptoms or SOB. She endorses mild dry cough. remains on vanco/zosyn. Afebrile - Current Medication List Current Medications: Active Medications Acetaminophen (Tylenol -) 650 mg PO Q6H PRN PRN Reason: PAIN LEVEL 1-5 Last Admin: 08/05/19 18:36 Dose: 650 mg Apixaban (Eliquis -) 5 mg PO BID [facility] Last Admin: 08/06/19 21:26 Dose: 5 mg Clopidogrel Bisulfate (Plavix -) 75 mg PO DAILY [facility] Last Admin: 08/06/19 09:30 Dose: 75 mg Sodium Chloride (Normal Saline -) 1,000 mls @ 75 mls/hr IV ASDIR [facility] Last Admin: 08/06/19 21:26 Dose: 75 mls/hr Vancomycin HCl 1,250 mg/ (Sodium Chloride) 250 mls @ 250 mls/2 hr IVPB Q24H [facility] ; Protocol Last Admin: 08/06/19 21:26 Dose: 250 mls/2 hr Piperacillin Sod/Tazobactam (Sod 3.375 gm/ Sodium Chloride) 50 mls @ 100 mls/ hr IVPB Q8H-IV [facility]; Protocol Last Admin: 08/07/19 02:10 Dose: 100 mls/hr Insulin Aspart (Novolog Vial Sliding Scale -) 1 vial SQ ACHS [facility]; Protocol Last Admin: 08/07/19 07:50 Dose: Not Given Isosorbide Mononitrate (Imdur -) 30 mg PO DAILY [facility] Last Admin: 08/06/19 09:30 Dose: 30 mg Metoprolol Succinate (Toprol Xl -) 25 mg PO DAILY [facility] Last Admin: 08/06/19 09:30 Dose: 25 mg Nifedipine (Procardia Xl -) 60 mg PO BID [facility] Last Admin: 08/06/19 21:26 Dose: 60 mg Non-Formulary Medication (Lubiprostone [Amitiza]) 8 mcg PO BID [facility] Spironolactone (Aldactone -) 50 mg PO DAILY [facility] Last Admin: 08/06/19 09:30 Dose: 50 mg Valsartan (Diovan -) 320 mg PO DAILY [facility] Last Admin: 08/06/19 09:30 Dose: 320 mg - Objective Vital Signs: Vital Signs Temperature 98.5 F 08/07/19 06:00 Pulse Rate 75 08/07/19 06:00 Respiratory Rate 18 08/07/19 06:00 Blood Pressure 139/54 L 08/07/19 06:00 O2 Sat by Pulse Oximetry (%) 97 08/07/19 06:00 Constitutional: Yes: No Distress, Calm HENT: Yes: Atraumatic Neck: Yes: Supple Cardiovascular: Yes: Pulse Irregular, S1, S2 Respiratory: Yes: WNL, Regular, CTA Bilaterally Gastrointestinal: Yes: Normal Bowel Sounds, Soft Extremities: Yes: Erythema, Other (tender RLE. Redness outlined and mild improvement based on markings. 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 Admitted for RLE cellulitis. Right lower extremity cellulitis continue vanco/zosyn ABx day 4 per ID Vanco trough low-will discuss with ID about increasing dose or frequency Afebrile blood cultures negative to date no leukocytosis at this time Hypertension BP controlled continue nifedipine, valsartan, spironolactone Coronary artery disease continue isosorbide mononitrate Metoprolol XL continue plavix continue procardia Diastolic heart failure/Peripheral vascular disease does not seem to be clinicall volume overloaded continue ToprolXL, valsartan, spironolactone history of CVAs continue Plavix Atrial fibrillation Rate is controlled with Toprol XL continue eliquis Asthma not in exacerbation Type II IDDM fingersticks well controlled continue ISS Left breast cancer can follow up as outpatient Stop IVF no electrolyte issues DVT prophylaxis: on Eliquis Physical therapy Visit type - Emergency Visit Emergency Visit: Yes ED Registration Date: 08/04/19 Care time: The patient presented to the Emergency Department on the above date and was hospitalized for further evaluation of their emergent condition. - New Patient This patient is new to me today: Yes Date on this admission: 08/07/19 - Critical Care Critical Care patient: No
[2019-08-07 08:27] LABS: BASO % 0.3 % (0-2.0); EOS % 2.4 % (0-4.5); HEMATOCRIT 39.1 % (32.4-45.2); HEMOGLOBIN 13.4 GM/dl (10.7-15.3); LYMPH % 18.7 % (8-40); MCH 31.9 pg (25.7-33.7); MCHC 34.3 g/dl (32.0-36.0); MEAN CELL VOLUME 92.9 fl (80-96); MEAN PLT VOLUME 10.9 fl (7.5-11.1); MONO % 8.9 % (3.8-10.2); NEUT % 69.7 % (42.8-82.8); PLATELET COUNT 200 K/MM3 (134-434); RBC 4.21 M/mm3 (3.60-5.2); RDW 11.9 % (11.6-15.6); WHITE BLOOD COUNT 8.1 K/mm3 (4.0-10.8)
[2019-08-07] MEDS: SPIRONOLACTONE 25 MG TABLET (FP) PO SCH (10:13)
[2019-08-07] MEDS: APIXABAN 5 MG TABLET PO SCH ×2 (10:13→22:01)
[2019-08-07] MEDS: VALSARTAN 160 MG TABLET (UD) PO SCH (10:13)
[2019-08-07] MEDS: CLOPIDOGREL BISULFATE 75 MG TABLET (FP) PO SCH (10:13)
[2019-08-07] MEDS: ISOSORBIDE MONONITRATE 30 MG TAB.SR.24H (FP) PO SCH (10:14)
[2019-08-07] MEDS: metoPROLOL SUCCINATE 25 MG TAB.SR.24H (FP) PO SCH (10:14)
[2019-08-07] MEDS: NIFEdipine E.R 60 MG TABLET PO SCH ×2 (10:14→22:01)
[2019-08-07] MEDS ORDERED: PT OWN MED DRAWER 7, Y5N ONE (14:35)
[2019-08-07] MEDS: VANCOMYCIN HCL 1,250 MG in SODIUM CHLORIDE 250 ML IVPB SCH (15:12)
--- NOTE | 2019-08-07 15:48 | PN ---
Progress Note, Physician History of Present Illness: stable still with redness and tendereness - Current Medication List Current Medications: Active Medications Acetaminophen (Tylenol -) 650 mg PO Q6H PRN PRN Reason: PAIN LEVEL 1-5 Last Admin: 08/05/19 18:36 Dose: 650 mg Apixaban (Eliquis -) 5 mg PO BID [facility] Last Admin: 08/07/19 10:13 Dose: 5 mg Clopidogrel Bisulfate (Plavix -) 75 mg PO DAILY [facility] Last Admin: 08/07/19 10:13 Dose: 75 mg Vancomycin HCl 1,250 mg/ (Sodium Chloride) 250 mls @ 250 mls/2 hr IVPB Q24H [facility] ; Protocol Last Admin: 08/07/19 15:12 Dose: 250 mls/2 hr Piperacillin Sod/Tazobactam (Sod 3.375 gm/ Sodium Chloride) 50 mls @ 100 mls/ hr IVPB Q8H-IV [facility]; Protocol Last Admin: 08/07/19 10:14 Dose: 100 mls/hr Insulin Aspart (Novolog Vial Sliding Scale -) 1 vial SQ ACHS [facility]; Protocol Last Admin: 08/07/19 11:50 Dose: Not Given Isosorbide Mononitrate (Imdur -) 30 mg PO DAILY [facility] Last Admin: 08/07/19 10:14 Dose: 30 mg Metoprolol Succinate (Toprol Xl -) 25 mg PO DAILY [facility] Last Admin: 08/07/19 10:14 Dose: 25 mg Nifedipine (Procardia Xl -) 60 mg PO BID [facility] Last Admin: 08/07/19 10:14 Dose: 60 mg Non-Formulary Medication (Lubiprostone [Amitiza]) 8 mcg PO BID [facility] Spironolactone (Aldactone -) 50 mg PO DAILY [facility] Last Admin: 08/07/19 10:13 Dose: 50 mg Valsartan (Diovan -) 320 mg PO DAILY [facility] Last Admin: 08/07/19 10:13 Dose: 320 mg - Objective Vital Signs: Vital Signs Temperature 98.2 F 08/07/19 14:00 Pulse Rate 70 08/07/19 14:00 Respiratory Rate 18 08/07/19 14:00 Blood Pressure 130/57 L 08/07/19 14:00 O2 Sat by Pulse Oximetry (%) 95 08/07/19 14:00 Constitutional: Yes: No Distress, Calm Cardiovascular: Yes: S1, S2 Respiratory: Yes: Regular, CTA Bilaterally Gastrointestinal: Yes: Normal Bowel Sounds, Soft Musculoskeletal: Yes: WNL Extremities: Yes: Other Neurological: Yes: Alert, Oriented Psychiatric: Yes: Alert, Oriented Labs: CBC, BMP 08/07/19 07:07 08/07/19 07:07 INR, PTT INR 1.60 (0.82-1.09) H 08/04/19 16:40 Assessment/Plan 78 year-old female with a PMH significant for HTN, HLD, CAD s/p [place] s/p stent, CVA x 2 (2008, 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 Admitted for RLE cellulitis. Right lower extremity cellulitis Hypertension Hyperlipidemia Coronary artery disease CVAs Atrial fibrillation Diastolic heart failure asthma Type II IDDM Left breast cancer plan continue [facility]x [facility]
[2019-08-08] MEDS: PIPERACILLIN/TAZOB 3.375 GM 3.375 GM in SODIUM CHLORIDE 50 ML IVPB SCH ×3 (01:44→18:03)
[2019-08-08] MEDS: INSULIN SLIDING SCALE (NOVOLOG) 1 VIAL SQ SCH ×4 (06:30→22:05)
[2019-08-08 08:41] LABS: ALBUMIN 2.8 g/dl (3.4-5.0); BILIRUBIN,TOTAL 1.4 mg/dl (0.2-1); CALCIUM 8.6 mg/dl (8.5-10); CREATININE 1.7 mg/dl (0.55-1.3); POTASSIUM 3.5 mmol/L (3.5-5.1); TOT PROT 5.8 g/dl (6.4-8.2)
[2019-08-08 08:43] LABS: BASO % 0.4 % (0-2.0); EOS % 1.9 % (0-4.5); HEMATOCRIT 41.5 % (32.4-45.2); HEMOGLOBIN 14.3 GM/dl (10.7-15.3); LYMPH % 15.2 % (8-40); MCHC 34.4 g/dl (32.0-36.0); MEAN PLT VOLUME 10.8 fl (7.5-11.1); NEUT % 73.5 % (42.8-82.8); PLATELET COUNT 256 K/MM3 (134-434); RBC 4.46 M/mm3 (3.60-5.2); RDW 11.8 % (11.6-15.6); WHITE BLOOD COUNT 11.6 K/mm3 (4.0-10.8)
[2019-08-08] MEDS ORDERED: SODIUM CHLORIDE 50 ML IVPB ONE ×2 (09:21→17:58)
[2019-08-08] MEDS ORDERED: PIPERACILLIN/TAZOBACTAM 3.375 GM VIAL IVPB ONE ×2 (09:21→17:57)
[2019-08-08] MEDS: ISOSORBIDE MONONITRATE 30 MG TAB.SR.24H (FP) PO SCH (10:03)
[2019-08-08] MEDS: metoPROLOL SUCCINATE 25 MG TAB.SR.24H (FP) PO SCH (10:03)
[2019-08-08] MEDS: VALSARTAN 160 MG TABLET (UD) PO SCH (10:03)
[2019-08-08] MEDS: NIFEdipine E.R 60 MG TABLET PO SCH ×2 (10:03→22:05)
[2019-08-08] MEDS: APIXABAN 5 MG TABLET PO SCH ×2 (10:03→22:05)
[2019-08-08] MEDS: CLOPIDOGREL BISULFATE 75 MG TABLET (FP) PO SCH (10:06)
[2019-08-08] MEDS: SPIRONOLACTONE 25 MG TABLET (FP) PO SCH (10:07)
--- NOTE | 2019-08-08 11:42 | PN ---
Progress Note, Physician History of Present Illness: Pt is alert, stating her LE pain is slowly improving. Able to walk to the bathroom. Tmax 99.5F, wbc mildly elevated today. Has no new complaints. - Current Medication List Current Medications: Active Medications Acetaminophen (Tylenol -) 650 mg PO Q6H PRN PRN Reason: PAIN LEVEL 1-5 Last Admin: 08/05/19 18:36 Dose: 650 mg Apixaban (Eliquis -) 5 mg PO BID [facility] Last Admin: 08/08/19 10:03 Dose: 5 mg Clopidogrel Bisulfate (Plavix -) 75 mg PO DAILY [facility] Last Admin: 08/08/19 10:06 Dose: 75 mg Vancomycin HCl 1,250 mg/ (Sodium Chloride) 250 mls @ 250 mls/2 hr IVPB Q24H [facility] ; Protocol Last Admin: 08/07/19 15:12 Dose: 250 mls/2 hr Piperacillin Sod/Tazobactam (Sod 3.375 gm/ Sodium Chloride) 50 mls @ 100 mls/ hr IVPB Q8H-IV [facility]; Protocol Last Admin: 08/08/19 10:04 Dose: 100 mls/hr Insulin Aspart (Novolog Vial Sliding Scale -) 1 vial SQ ACHS [facility]; Protocol Last Admin: 08/08/19 06:30 Dose: Not Given Isosorbide Mononitrate (Imdur -) 30 mg PO DAILY [facility] Last Admin: 08/08/19 10:03 Dose: 30 mg Metoprolol Succinate (Toprol Xl -) 25 mg PO DAILY [facility] Last Admin: 08/08/19 10:03 Dose: 25 mg Nifedipine (Procardia Xl -) 60 mg PO BID [facility] Last Admin: 08/08/19 10:03 Dose: 60 mg Non-Formulary Medication (Lubiprostone [Amitiza]) 8 mcg PO BID [facility] Spironolactone (Aldactone -) 50 mg PO DAILY [facility] Last Admin: 08/08/19 10:07 Dose: 50 mg Valsartan (Diovan -) 320 mg PO DAILY [facility] Last Admin: 08/08/19 10:03 Dose: 320 mg - Objective Vital Signs: Vital Signs Temperature 97.9 F 08/08/19 10:00 Pulse Rate 71 08/08/19 10:00 Respiratory Rate 20 08/08/19 10:00 Blood Pressure 139/60 08/08/19 10:00 O2 Sat by Pulse Oximetry (%) 95 08/08/19 08:44 Constitutional: Yes: No Distress, Calm Cardiovascular: Yes: Regular Rate and Rhythm Respiratory: Yes: Regular Gastrointestinal: Yes: Normal Bowel Sounds, Soft Extremities: Yes: Erythema (RLE +erythema/warmth/tenderness) Integumentary: Yes: WNL Neurological: Yes: Alert, Oriented Labs: CBC, BMP 08/08/19 08:00 08/08/19 08:00 INR, PTT INR 1.60 (0.82-1.09) H 08/04/19 16:40 Vancomycin trough - 9.5 Problem List - Problems (1) Cellulitis of right lower extremity Code(s): L03.115 - CELLULITIS OF RIGHT LOWER LIMB (2) CVA (cerebral vascular accident) Code(s): I63.9 - CEREBRAL INFARCTION, UNSPECIFIED Qualifiers: CVA mechanism: unspecified Qualified Code(s): I63.9 - Cerebral infarction, unspecified (3) Coronary artery disease Code(s): I25.10 - ATHSCL HEART DISEASE OF [place] CORONARY ARTERY W/O ANG PCTRS (4) Diabetes mellitus type 2 with complications Code(s): E11.8 - TYPE 2 DIABETES MELLITUS WITH UNSPECIFIED COMPLICATIONS (5) HLD (hyperlipidemia) Code(s): E78.5 - HYPERLIPIDEMIA, UNSPECIFIED (6) HTN (hypertension) Code(s): I10 - ESSENTIAL (PRIMARY) HYPERTENSION (7) TIA (transient ischemic attack) Code(s): G45.9 - TRANSIENT CEREBRAL ISCHEMIC ATTACK, UNSPECIFIED Qualifiers: Transient cerebral ischemia type: unspecified Assessment/Plan RLE cellulitis JUDIT -- Pt still with significant erythema/warmth tenderness -- Temp remains mildly elevated, wbc slightly higher today -- Creatinine increased from yesterday to 1.7, will hold Vancomycin -- continue Zosyn -- monitor temps, wbc, renal function
--- NOTE | 2019-08-08 16:38 | PN ---
Progress Note, Physician History of Present Illness: Patient seen and examined at bedside. Endorses mild improvement of her cellulitis. She denies nausea vomiting fever chills chest pain urinary or GI symptoms or SOB. Creatinine 1.7 today all of a sudden. Endorses she is not eating or drinking well. States her lips and mouth are dry. Vanco stopped by ID. remains on zosyn. Afebrile. Leukocytosis resolved but worsened today. - Current Medication List Current Medications: Active Medications Acetaminophen (Tylenol -) 650 mg PO Q6H PRN PRN Reason: PAIN LEVEL 1-5 Last Admin: 08/05/19 18:36 Dose: 650 mg Apixaban (Eliquis -) 5 mg PO BID [facility] Last Admin: 08/08/19 10:03 Dose: 5 mg Clopidogrel Bisulfate (Plavix -) 75 mg PO DAILY [facility] Last Admin: 08/08/19 10:06 Dose: 75 mg Piperacillin Sod/Tazobactam (Sod 3.375 gm/ Sodium Chloride) 50 mls @ 100 mls/ hr IVPB Q8H-IV [facility]; Protocol Last Admin: 08/08/19 10:04 Dose: 100 mls/hr Insulin Aspart (Novolog Vial Sliding Scale -) 1 vial SQ ACHS [facility]; Protocol Last Admin: 08/08/19 11:42 Dose: 4 unit Isosorbide Mononitrate (Imdur -) 30 mg PO DAILY [facility] Last Admin: 08/08/19 10:03 Dose: 30 mg Metoprolol Succinate (Toprol Xl -) 25 mg PO DAILY [facility] Last Admin: 08/08/19 10:03 Dose: 25 mg Nifedipine (Procardia Xl -) 60 mg PO BID [facility] Last Admin: 08/08/19 10:03 Dose: 60 mg Non-Formulary Medication (Lubiprostone [Amitiza]) 8 mcg PO BID [facility] Spironolactone (Aldactone -) 50 mg PO DAILY [facility] Last Admin: 08/08/19 10:07 Dose: 50 mg Valsartan (Diovan -) 320 mg PO DAILY [facility] Last Admin: 08/08/19 10:03 Dose: 320 mg - Objective Vital Signs: Vital Signs Temperature 97.8 F 08/08/19 14:00 Pulse Rate 64 08/08/19 14:00 Respiratory Rate 16 08/08/19 14:00 Blood Pressure 125/51 L 08/08/19 14:00 O2 Sat by Pulse Oximetry (%) 99 08/08/19 14:00 Constitutional: Yes: No Distress, Calm HENT: Yes: Atraumatic. Dry oral mucosa Neck: Yes: Supple Cardiovascular: Yes: Pulse Irregular, S1, S2 Respiratory: Yes: WNL, Regular, CTA Bilaterally Gastrointestinal: Yes: Normal Bowel Sounds, Soft Extremities: Yes: Erythema, Other (tender RLE. Redness outlined and mild improvement based on markings. Still erythematous) Edema: Yes Edema: RLE: Trace Neurological: Yes: Alert, Oriented Labs: CBC, BMP 08/08/19 08:00 08/08/19 08:00 INR, PTT INR 1.60 (0.82-1.09) H 08/04/19 16:40 Impression/Plan Impression/Plan: 78 year-old female with multiple medical problems including a PMH of HTN, HLD, CAD s/p [place] s/p stent, CVA x 2 (2008, 12/2018), atrial fibrillation on Eliquis, diastolic heart failure, asthma, Type II IDDM, PVD, and left breast cancer. Admitted for RLE cellulitis. Right lower extremity cellulitis stop vanco due to JUDIT continue zosyn ABx day 5 per ID Afebrile blood cultures negative to date leukocytosis 11.6 today. yesterday it was normal Hypertension BP controlled continue nifedipine hold valsartan and spironolactone due to JUDIT JUDIT Avoid nephrotoxic drugs stop Vancomycin Zosyn could be cause as well hold ARB and spironolactone Nephrology consult if doesnt resolve/improve restart NS @ 75ml/hr Coronary artery disease continue isosorbide mononitrate Metoprolol XL continue plavix continue procardia Diastolic heart failure/Peripheral vascular disease does not seem to be clinically volume overloaded continue ToprolXL history of CVAs continue Plavix Atrial fibrillation Rate is controlled with Toprol XL continue eliquis Asthma not in exacerbation Type II IDDM fingersticks well controlled continue ISS Left breast cancer can follow up as outpatient DVT prophylaxis: on Eliquis Physical therapy Visit type - Emergency Visit Emergency Visit: Yes ED Registration Date: 08/04/19 Care time: The patient presented to the Emergency Department on the above date and was hospitalized for further evaluation of their emergent condition. - New Patient This patient is new to me today: No - Critical Care Critical Care patient: No
[2019-08-08] MEDS: SODIUM CHLORIDE 1,000 ML IV SCH (16:59)
[2019-08-09] MEDS ORDERED: PIPERACILLIN/TAZOBACTAM 3.375 GM VIAL IVPB ONE ×2 (01:17→08:45)
[2019-08-09] MEDS ORDERED: SODIUM CHLORIDE 50 ML IVPB ONE ×2 (01:17→08:46)
[2019-08-09] MEDS: PIPERACILLIN/TAZOB 3.375 GM 3.375 GM in SODIUM CHLORIDE 50 ML IVPB SCH (01:53)
[2019-08-09] MEDS: INSULIN SLIDING SCALE (NOVOLOG) 1 VIAL SQ SCH ×4 (06:34→21:45)
[2019-08-09 08:32] LABS: BASO % 0.5 % (0-2.0); EOS % 2.6 % (0-4.5); HEMATOCRIT 38.2 % (32.4-45.2); HEMOGLOBIN 12.7 GM/dl (10.7-15.3); MCH 31.4 pg (25.7-33.7); MCHC 33.3 g/dl (32.0-36.0); MEAN CELL VOLUME 94.4 fl (80-96); MEAN PLT VOLUME 10.6 fl (7.5-11.1); MONO % 9.5 % (3.8-10.2); NEUT % 73.4 % (42.8-82.8); PLATELET COUNT 254 K/MM3 (134-434); RBC 4.05 M/mm3 (3.60-5.2); RDW 11.9 % (11.6-15.6); WHITE BLOOD COUNT 10.9 K/mm3 (4.0-10.8)
--- NOTE | 2019-08-09 08:34 | PN ---
Progress Note, Physician History of Present Illness: Patient seen and examined at bedside. Endorses mild improvement of her cellulitis. She denies nausea vomiting fever chills chest pain urinary or GI symptoms or SOB. Cough resolved. Creatinine 1.7 yesterday all of a sudden and she was started on IVF. Labs from this morning are still pending but have been drawn. Vanco stopped by ID yesterday. remains on zosyn. Afebrile. Patient upset and tearful she is still hospitalized because she is supposed to be going to [place] with her son. - Current Medication List Current Medications: Active Medications Acetaminophen (Tylenol -) 650 mg PO Q6H PRN PRN Reason: PAIN LEVEL 1-5 Last Admin: 08/05/19 18:36 Dose: 650 mg Apixaban (Eliquis -) 5 mg PO BID [facility] Last Admin: 08/08/19 22:05 Dose: 5 mg Clopidogrel Bisulfate (Plavix -) 75 mg PO DAILY [facility] Last Admin: 08/08/19 10:06 Dose: 75 mg Piperacillin Sod/Tazobactam (Sod 3.375 gm/ Sodium Chloride) 50 mls @ 100 mls/ hr IVPB Q8H-IV [facility]; Protocol Last Admin: 08/09/19 01:53 Dose: 100 mls/hr Sodium Chloride (Normal Saline -) 1,000 mls @ 75 mls/hr IV ASDIR [facility] Last Admin: 08/08/19 16:59 Dose: 75 mls/hr Insulin Aspart (Novolog Vial Sliding Scale -) 1 vial SQ ACHS [facility]; Protocol Last Admin: 08/09/19 06:34 Dose: 2 unit Isosorbide Mononitrate (Imdur -) 30 mg PO DAILY [facility] Last Admin: 08/08/19 10:03 Dose: 30 mg Metoprolol Succinate (Toprol Xl -) 25 mg PO DAILY [facility] Last Admin: 08/08/19 10:03 Dose: 25 mg Nifedipine (Procardia Xl -) 60 mg PO BID [facility] Last Admin: 08/08/19 22:05 Dose: 60 mg Non-Formulary Medication (Lubiprostone [Amitiza]) 8 mcg PO BID [facility] Spironolactone (Aldactone -) 50 mg PO DAILY [facility] Last Admin: 08/08/19 10:07 Dose: 50 mg Valsartan (Diovan -) 320 mg PO DAILY [facility] Last Admin: 08/08/19 10:03 Dose: 320 mg - Objective Vital Signs: Vital Signs Temperature 97.8 F 08/09/19 06:00 Pulse Rate 72 08/09/19 06:00 Respiratory Rate 19 08/09/19 06:00 Blood Pressure 135/57 L 08/09/19 06:00 O2 Sat by Pulse Oximetry (%) 97 08/09/19 06:31 Constitutional: Yes: No Distress, Calm HENT: Yes: Atraumatic. Neck: Yes: Supple Cardiovascular: Yes: RRR today, S1, S2 Respiratory: Yes: WNL, Regular, CTA Bilaterally Gastrointestinal: Yes: Normal Bowel Sounds, Soft Extremities: Yes: Erythema, Other (tender RLE. Redness outlined and mild if any improvement today based on markings and following the patient for the last few days. Still erythematous) Edema: Yes Edema: RLE: Trace Neurological: Yes: Alert, Oriented Labs: INR, PTT INR 1.60 (0.82-1.09) H 08/04/19 16:40 Impression/Plan Impression/Plan: 78 year-old female with multiple medical problems including a PMH of HTN, HLD, CAD s/p [place] s/p stent, CVA x 2 (2008, 12/2018), atrial fibrillation on Eliquis, diastolic heart failure, asthma, Type II IDDM, PVD, and left breast cancer. Admitted for RLE cellulitis. Right lower extremity cellulitis vanco held due to JUDIT continue zosyn ABx day 6 per ID Afebrile blood cultures negative to date leukocytosis 11.6 today. yesterday it was normal Hypertension BP controlled continue nifedipine hold valsartan and spironolactone due to JUDIT JUDIT Avoid nephrotoxic drugs stop Vancomycin Zosyn could be the cause as well hold ARB and spironolactone until labs are back Nephrology consult if doesnt resolve/improve continue NS @ 75ml/hr trend creatinine-labs pending today Coronary artery disease continue isosorbide mononitrate Metoprolol XL continue plavix continue procardia Diastolic heart failure/Peripheral vascular disease does not seem to be clinically volume overloaded continue ToprolXL history of CVAs continue Plavix, eliquis Atrial fibrillation Rate is controlled with Toprol XL continue eliquis RRR on exam today Asthma not in exacerbation Type II IDDM fingersticks well controlled continue ISS Left breast cancer can follow up as outpatient DVT prophylaxis: on Eliquis replete lytes PRN Physical therapy Visit type - Emergency Visit Emergency Visit: Yes ED Registration Date: 08/04/19 Care time: The patient presented to the Emergency Department on the above date and was hospitalized for further evaluation of their emergent condition. - New Patient This patient is new to me today: No - Critical Care Critical Care patient: No
[2019-08-09 08:43] LABS: ALBUMIN 2.4 g/dl (3.4-5.0); BILIRUBIN,TOTAL 1.1 mg/dl (0.2-1); CALCIUM 8.2 mg/dl (8.5-10); CREATININE 2.2 mg/dl (0.55-1.3); POTASSIUM 3.5 mmol/L (3.5-5.1); TOT PROT 5.1 g/dl (6.4-8.2)
[2019-08-09] MEDS: APIXABAN 5 MG TABLET PO SCH ×2 (09:44→21:41)
[2019-08-09] MEDS: CLOPIDOGREL BISULFATE 75 MG TABLET (FP) PO SCH (09:44)
[2019-08-09] MEDS: metoPROLOL SUCCINATE 25 MG TAB.SR.24H (FP) PO SCH (09:44)
[2019-08-09] MEDS: ISOSORBIDE MONONITRATE 30 MG TAB.SR.24H (FP) PO SCH (09:44)
[2019-08-09] MEDS: NIFEdipine E.R 60 MG TABLET PO SCH ×2 (09:44→21:41)
[2019-08-09] MEDS: PIPERACILLIN/TAZOB 2.25 GM 2.25 GM in DEXTROSE 5%-WATER - 50 ML IVPB SCH ×2 (10:10→18:38)
[2019-08-09] MEDS ORDERED: PIPERACILLIN/TAZOBACTAM 2.25 GM VIAL IVPB ONE ×2 (11:11→12:18)
[2019-08-09] MEDS ORDERED: DEXTROSE 5%-WATER - 50 ML IVPB ONE ×2 (11:11→12:18)
--- NOTE | 2019-08-09 16:23 | CON.NEP ---
Consult Consult Specialty:: Nephrology Reason for Consultation:: JUDIT - History of Present Illness Chief Complaint: cellulitis History of Present Illness: 78 year-old female with a PMH significant for HTN, HLD, CAD s/p [place] s/p stent, CVA x 2 (2008, 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 Presented to the ED for evaluation of RLE pain, redness, and swelling. She had leg surgery 17 years ago and thinks her issues arise from that. She denied recent trauma though that is in the history from record. Her memory is poor from her cva. Says she saw urologist because her bladder was having problems but could not explain why. Did say that she stopped a medication that urologist told her to stop and she felt better. Was having some difficulty urinating - History Source History Provided By: Patient, Medical Record Limitations to Obtaining History: Poor Historian - Past Medical History NET LEAD ARCHITECT: Yes: CVA, Syncope Cardio/Vascular: Yes: CAD, HTN, Hyperlipdemia Pulmonary: Yes: Asthma Endocrine: Yes: Diabetes Mellitus - Alcohol/Substance Use Hx Alcohol Use: No - Smoking History Smoking history: Never smoked Have you smoked in the past 12 months: No Aproximately how many cigarettes per day: 0 - Social History Usual Living Arrangement: With Spouse ADL: Independent History of Recent Travel: No Home Medications - Allergies Allergies/Adverse Reactions: Allergies Allergy/AdvReac Type Severity Reaction Status Date / Time No Known Allergies Allergy Verified 08/04/19 15:47 - Home Medications Home Medications: Ambulatory Orders Apixaban [Eliquis] 5 mg PO BID 08/04/19 Clopidogrel Bisulfate [Plavix] 75 mg PO DAILY 08/04/19 Empagliflozin [Jardiance] 1 tab PO DAILY 08/04/19 Insulin Lispro Protamin/Lispro [Humalog Mix 75-25 Vial] 10 units SQ [facility]IR Isosorbide Dinitrate [Isordil] 30 mg PO DAILY 08/04/19 Lubiprostone [Amitiza] 8 mcg PO BID 08/04/19 Metoprolol Succinate [Toprol Xl] 25 mg PO DAILY 08/04/19 Nifedipine [Nifedipine ER] 60 mg PO BID 08/04/19 Sitagliptin Phos/Metformin HCl [Janumet 50-500 mg Tablet] 1 each PO BID Spironolactone 50 mg PO DAILY 08/04/19 Telmisartan 80 mg PO DAILY 08/04/19 Zolpidem Tartrate [Ambien] 5 mg PO PRN 08/04/19 Review of Systems - Review of Systems Constitutional: reports: No Symptoms Eyes: reports: No Symptoms HENT: reports: No Symptoms Neck: reports: No Symptoms Cardiovascular: reports: No Symptoms Respiratory: reports: No Symptoms Gastrointestinal: reports: No Symptoms Genitourinary: reports: Burning, Dysuria Breasts: reports: No Symptoms Reported Musculoskeletal: reports: Extremity Pain Integumentary: reports: Bruising Neurological: reports: Other (poor memory) Endocrine: reports: No Symptoms Hematology/Lymphatic: reports: No Symptoms Psychiatric: reports: No Symptoms Nephrology Consult - Height Height: 5 ft 3 in - Weight Weight: 156 lb 0.011 oz - BMI Body Mass Index (BMI): 27.6 - Lab Results CBC,BMP: CBC, BMP 08/09/19 06:00 08/09/19 06:00 Anion Gap: Anion Gap Anion Gap 9 MMOL/L (8-16) 08/09/19 06:00 - Imaging Chest X-ray: Report Reviewed - Physical Examination Vital Signs: Vital Signs Temperature 97.9 F 08/09/19 13:49 Pulse Rate 70 08/09/19 13:49 Respiratory Rate 19 08/09/19 13:49 Blood Pressure 126/55 L 08/09/19 13:49 O2 Sat by Pulse Oximetry (%) 98 08/09/19 13:49 Constitutional: Yes: No Distress, Calm Eyes: Yes: Conjunctiva Clear, EOM Intact HENT: Yes: Atraumatic, Normocephalic Neck: Yes: Supple, Trachea Midline Cardiovascular: Yes: Regular Rate and Rhythm Respiratory: Yes: Regular Gastrointestinal: Yes: Normal Bowel Sounds Renal/: Yes: WNL Musculoskeletal: Yes: WNL Extremities: Yes: WNL Edema: Yes Edema: RLE: Trace Peripheral Pulses WNL: No Integumentary: Yes: Bruising, Erythema Wound/Incision: Yes: Clean/Dry Neurological: Yes: Alert, Oriented Psychiatric: Yes: Alert, Oriented Assessment/Plan IMPRESSION JUDIT with FENA of 1.9 which is in [place] area- she has JUDIT which is hospital acquired- r/o interstitial nephritis Hematuria not sure if its related to JUDIT, perhaps. she did have hematuria before DM cellulitis on antibiotics AFib h/o renal cyst PLAN agree with holding spironolactone and valsartan for now keep on fluids urine eos urology eval by Dr Bains, her urologist renal sonogram MV
[2019-08-09] MEDS: SODIUM CHLORIDE 1,000 ML IV SCH (16:50)
[2019-08-10] MEDS ORDERED: DEXTROSE 5%-WATER - 50 ML IVPB ONE (01:12)
[2019-08-10] MEDS ORDERED: PIPERACILLIN/TAZOBACTAM 2.25 GM VIAL IVPB ONE ×2 (01:12→10:26)
[2019-08-10] MEDS: PIPERACILLIN/TAZOB 2.25 GM 2.25 GM in DEXTROSE 5%-WATER - 50 ML IVPB SCH (01:23)
--- NOTE | 2019-08-10 06:12 | PN ---
Physical Exam: SUBJECTIVE: Patient seen and examined at bedside. Leg is more painful. Cries with lightest touch. OBJECTIVE: Vital Signs Period Temp Pulse Resp BP Sys/Mills Pulse Ox Last 24 Hr 68 F-99.0 F 68-74 18-19 126-146/45-57 97-100 GENERAL: Awake, alert, and fully oriented. LUNGS: Breath sounds equal, clear to auscultation bilaterally. No wheezes, and no crackles. No accessory muscle use. HEART: Regular rate and rhythm, S1 and S2 ABDOMEN: Soft, nontender, not distended UPPER EXTREMITIES: 2+ pulses, warm, well-perfused. No cyanosis. No clubbing. No peripheral edema. RIGHT LOWER EXTREMITY: No improvement since last saw patient on 08/06; erythema extends beyond original ink demarcation to knee; exquisitely tender, wound on posterior calf now necrotic NEUROLOGICAL: Cranial nerves II-XII intact. Normal speech. Laboratory Results - last 24 hr 08/09/19 08/09/19 08/09/19 06:00 06:00 06:27 WBC 10.9 H RBC 4.05 Hgb 12.7 Hct 38.2 MCV 94.4 MCH 31.4 MCHC 33.3 RDW 11.9 Plt Count 254 MPV 10.6 Absolute Neuts (auto) 8.0 Neutrophils % 73.4 Lymphocytes % 14.0 Monocytes % 9.5 Eosinophils % 2.6 Basophils % 0.5 Sodium 139 Potassium 3.5 Chloride 107 Carbon Dioxide 23 Anion Gap 9 BUN 19.0 H Creatinine 2.2 H Est GFR (CKD-EPI)AfAm 24.26 Est GFR (CKD-EPI)NonAf 20.93 POC Glucometer 171 Random Glucose 163 H Calcium 8.2 L Magnesium 2.0 Total Bilirubin 1.1 H AST 23 ALT 19 Alkaline Phosphatase 47 Total Protein 5.1 L Albumin 2.4 L Urine Color Urine Appearance Urine pH Urine Protein Urine Glucose (UA) Urine Ketones Urine Blood Urine Nitrite Urine Bilirubin Urine Urobilinogen Ur Leukocyte Esterase Urine RBC Urine WBC Ur Random Creatinine Ur Random Sodium Ur Random Potassium Ur Random Chloride 08/09/19 08/09/19 08/09/19 09:55 09:55 09:55 WBC RBC Hgb Hct MCV MCH MCHC RDW Plt Count MPV Absolute Neuts (auto) Neutrophils % Lymphocytes % Monocytes % Eosinophils % Basophils % Sodium Potassium Chloride Carbon Dioxide Anion Gap BUN Creatinine Est GFR (CKD-EPI)AfAm Est GFR (CKD-EPI)NonAf POC Glucometer Random Glucose Calcium Magnesium Total Bilirubin AST ALT Alkaline Phosphatase Total Protein Albumin Urine Color Yellow Urine Appearance Clear Urine pH 5.5 Urine Protein Negative Urine Glucose (UA) 1+ H Urine Ketones Negative Urine Blood 3+ H Urine Nitrite Negative Urine Bilirubin Negative Urine Urobilinogen 0.2 Ur Leukocyte Esterase Negative Urine RBC 40-60 Urine WBC 0-2 Ur Random Creatinine Ur Random Sodium 74 74 Ur Random Potassium 19.0 L Ur Random Chloride 70 L 08/09/19 08/09/19 08/09/19 09:55 11:17 16:20 WBC RBC Hgb Hct MCV MCH MCHC RDW Plt Count MPV Absolute Neuts (auto) Neutrophils % Lymphocytes % Monocytes % Eosinophils % Basophils % Sodium Potassium Chloride Carbon Dioxide Anion Gap BUN Creatinine Est GFR (CKD-EPI)AfAm Est GFR (CKD-EPI)NonAf POC Glucometer 245 64 Random Glucose Calcium Magnesium Total Bilirubin AST ALT Alkaline Phosphatase Total Protein Albumin Urine Color Urine Appearance Urine pH Urine Protein Urine Glucose (UA) Urine Ketones Urine Blood Urine Nitrite Urine Bilirubin Urine Urobilinogen Ur Leukocyte Esterase Urine RBC Urine WBC Ur Random Creatinine 61.5 Ur Random Sodium Ur Random Potassium Ur Random Chloride 08/09/19 20:28 WBC RBC Hgb Hct MCV MCH MCHC RDW Plt Count MPV Absolute Neuts (auto) Neutrophils % Lymphocytes % Monocytes % Eosinophils % Basophils % Sodium Potassium Chloride Carbon Dioxide Anion Gap BUN Creatinine Est GFR (CKD-EPI)AfAm Est GFR (CKD-EPI)NonAf POC Glucometer 241 Random Glucose Calcium Magnesium Total Bilirubin AST ALT Alkaline Phosphatase Total Protein Albumin Urine Color Urine Appearance Urine pH Urine Protein Urine Glucose (UA) Urine Ketones Urine Blood Urine Nitrite Urine Bilirubin Urine Urobilinogen Ur Leukocyte Esterase Urine RBC Urine WBC Ur Random Creatinine Ur Random Sodium Ur Random Potassium Ur Random Chloride Active Medications Generic Name Dose Route Start Last Admin Trade Name Freq PRN Reason Stop Dose Admin Acetaminophen 650 mg 08/04/19 20:16 08/05/19 18:36 Tylenol - PO 650 mg Q6H PRN Administration PAIN LEVEL 1-5 Apixaban 5 mg 08/05/19 15:56 08/09/19 21:41 Eliquis - PO 5 mg BID [facility] Administration Clopidogrel Bisulfate 75 mg 08/05/19 16:00 08/09/19 09:44 Plavix - PO 75 mg DAILY [facility] Administration Sodium Chloride 1,000 mls @ 75 mls/hr 08/08/19 16:45 08/09/19 16:50 Normal Saline - IV 75 mls/hr ASDIR [facility] Administration Piperacillin Sod/Tazobactam 50 mls @ 100 mls/hr 08/09/19 10:00 08/10/19 01:23 Sod 2.25 gm/ Dextrose IVPB 100 mls/hr Q8H-IV [facility] Administration Protocol Insulin Aspart 1 vial 08/04/19 22:00 08/09/19 21:45 Novolog Vial Sliding Scale - SQ 4 unit ACHS [facility] Administration Protocol Isosorbide Mononitrate 30 mg 08/05/19 16:00 08/09/19 09:44 Imdur - PO 30 mg DAILY [facility] Administration Metoprolol Succinate 25 mg 08/05/19 16:00 08/09/19 09:44 Toprol Xl - PO 25 mg DAILY [facility] Administration Nifedipine 60 mg 08/05/19 15:57 08/09/19 21:41 Procardia Xl - PO 60 mg BID [facility] Administration Non-Formulary Medication 8 mcg 08/05/19 22:00 Lubiprostone [Amitiza] PO BID [facility] Spironolactone 50 mg 08/05/19 16:00 08/08/19 10:07 Aldactone - PO 50 mg DAILY [facility] Administration Valsartan 320 mg 08/05/19 16:00 08/08/19 10:03 Diovan - PO 320 mg DAILY [facility] Administration ASSESSMENT/PLAN 78 year-old female with a PMH significant for HTN, HLD, CAD s/p PR s/p stent, CVA x 2 (2008, 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 Admitted for RLE cellulitis. Right lower extremity cellulitis Peripheral vascular disease --worsening erythema, pain, wound necrotic, needs debridement, request vascular to re-consult --stop Zosyn due to JUDIT; start cefepime 2g q12h (renal dose) and clinda IV 600mg q8h --ID following JUDIT --Cr 0.8 on admission, peaked 2.2, today 2.0 thought possibly secondary to Zosyn which has been stopped --US renal pending --very gentle IV fluids, watch for s/s of CHF overload --renal following Hypertension --BP stable --continue nifedipine; holding spironolactone and valsartan due to JUDIT Hyperlipidemia --not on statin therapy Coronary artery disease --continue Plavix, isosorbide, ToprolXL; not on ASA Diastolic heart failure --continue ToprolXL, telmisartan, spironolactone CVAs --continue Plavix; not on ASA, statin Atrial fibrillation --continue Toprol XL for rate control --continue Eliquis Asthma -stable Type II IDDM --Novolog sliding scale coverage Left breast cancer --stable FEN Fluids: NS@42mL/hr Electrolytes: replete as indicated Nutrition: diabetic DVT prophylaxis: on Eliquis Physical therapy Dispo: continues to require inpatient care. Full code. Visit type - Emergency Visit Emergency Visit: Yes ED Registration Date: 08/04/19 Care time: The patient presented to the Emergency Department on the above date and was hospitalized for further evaluation of their emergent condition. - New Patient This patient is new to me today: No - Critical Care Critical Care patient: No
[2019-08-10] MEDS: INSULIN SLIDING SCALE (NOVOLOG) 1 VIAL SQ SCH ×4 (07:07→21:19)
[2019-08-10 09:06] LABS: BASO % 0.3 % (0-2.0); EOS % 2.3 % (0-4.5); HEMATOCRIT 37.6 % (32.4-45.2); HEMOGLOBIN 12.4 GM/dl (10.7-15.3); LYMPH % 14.6 % (8-40); MCH 31.1 pg (25.7-33.7); MCHC 32.8 g/dl (32.0-36.0); MEAN CELL VOLUME 94.8 fl (80-96); MEAN PLT VOLUME 10.7 fl (7.5-11.1); NEUT % 73.8 % (42.8-82.8); PLATELET COUNT 246 K/MM3 (134-434); RBC 3.97 M/mm3 (3.60-5.2); RDW 11.9 % (11.6-15.6)
[2019-08-10 09:36] LABS: ALBUMIN 2.4 g/dl (3.4-5.0); BILIRUBIN,TOTAL 0.9 mg/dl (0.2-1); CALCIUM 8.3 mg/dl (8.5-10); POTASSIUM 3.4 mmol/L (3.5-5.1); TOT PROT 5.3 g/dl (6.4-8.2)
[2019-08-10] MEDS ORDERED: PIPERACILLIN/TAZOB 2.25 GM 2.25 GM in SODIUM CHLORIDE 50 ML IVPB SCH (10:00)
[2019-08-10] MEDS ORDERED: PT OWN MED DRAWER 7, Y5N ONE (10:26)
[2019-08-10] MEDS ORDERED: SODIUM CHLORIDE 50 ML IVPB ONE (10:26)
--- NOTE | 2019-08-10 10:31 | PN ---
Progress Note, Physician History of Present Illness: Pt seen and examined at bedside. She is awake and alert. She denies shortness of breath. She was on cipro as outpt. - Current Medication List Current Medications: Active Medications Acetaminophen (Tylenol -) 650 mg PO Q6H PRN PRN Reason: PAIN LEVEL 1-5 Last Admin: 08/05/19 18:36 Dose: 650 mg Apixaban (Eliquis -) 5 mg PO BID [facility] Last Admin: 08/09/19 21:41 Dose: 5 mg Clopidogrel Bisulfate (Plavix -) 75 mg PO DAILY [facility] Last Admin: 08/09/19 09:44 Dose: 75 mg Sodium Chloride (Normal Saline -) 1,000 mls @ 75 mls/hr IV ASDIR [facility] Last Admin: 08/09/19 16:50 Dose: 75 mls/hr Piperacillin Sod/Tazobactam (Sod 2.25 gm/ Sodium Chloride) 50 mls @ 100 mls/hr IVPB Q8H-IV [facility]; Protocol Insulin Aspart (Novolog Vial Sliding Scale -) 1 vial SQ ACHS [facility]; Protocol Last Admin: 08/10/19 07:07 Dose: 2 unit Isosorbide Mononitrate (Imdur -) 30 mg PO DAILY [facility] Last Admin: 08/09/19 09:44 Dose: 30 mg Metoprolol Succinate (Toprol Xl -) 25 mg PO DAILY [facility] Last Admin: 08/09/19 09:44 Dose: 25 mg Nifedipine (Procardia Xl -) 60 mg PO BID [facility] Last Admin: 08/09/19 21:41 Dose: 60 mg Non-Formulary Medication (Lubiprostone [Amitiza]) 8 mcg PO BID [facility] Potassium Chloride (K-Dur -) 40 meq PO ONCE ONE Stop: 08/10/19 10:22 Spironolactone (Aldactone -) 50 mg PO DAILY [facility] Last Admin: 08/08/19 10:07 Dose: 50 mg Valsartan (Diovan -) 320 mg PO DAILY [facility] Last Admin: 08/08/19 10:03 Dose: 320 mg - Objective Vital Signs: Vital Signs Temperature 99.1 F 08/10/19 06:00 Pulse Rate 73 08/10/19 06:00 Respiratory Rate 18 08/10/19 06:00 Blood Pressure 124/45 L 08/10/19 06:00 O2 Sat by Pulse Oximetry (%) 98 08/10/19 06:48 Constitutional: Yes: Calm Eyes: Yes: Conjunctiva Clear HENT: Yes: Atraumatic Neck: Yes: Supple Cardiovascular: Yes: S1, S2 Respiratory: Yes: CTA Bilaterally Gastrointestinal: Yes: Soft Genitourinary: Yes: WNL Musculoskeletal: Yes: WNL Edema: LLE: Trace, RLE: Trace Integumentary: Yes: Erythema Neurological: Yes: Oriented Psychiatric: Yes: Oriented Labs: CBC, BMP 08/10/19 06:00 08/10/19 06:00 INR, PTT INR 1.60 (0.82-1.09) H 08/04/19 16:40 Problem List - Problems (1) JUDIT (acute kidney injury) Code(s): N17.9 - ACUTE KIDNEY FAILURE, UNSPECIFIED (2) Cellulitis of right lower extremity Code(s): L03.115 - CELLULITIS OF RIGHT LOWER LIMB Assessment/Plan Current Medications Generic Name Dose Route Start Last Admin Trade Name Freq PRN Reason Stop Dose Admin Acetaminophen 650 mg 08/04/19 20:16 08/05/19 18:36 Tylenol - PO 650 mg Q6H PRN Administration PAIN LEVEL 1-5 Apixaban 5 mg 08/05/19 15:56 08/09/19 21:41 Eliquis - PO 5 mg BID [facility] Administration Clopidogrel Bisulfate 75 mg 08/05/19 16:00 08/09/19 09:44 Plavix - PO 75 mg DAILY [facility] Administration Sodium Chloride 1,000 mls @ 75 mls/hr 08/08/19 16:45 08/09/19 16:50 Normal Saline - IV 75 mls/hr ASDIR [facility] Administration Piperacillin Sod/Tazobactam 50 mls @ 100 mls/hr 08/10/19 10:00 Sod 2.25 gm/ Sodium Chloride IVPB Q8H-IV [facility] Protocol Insulin Aspart 1 vial 08/04/19 22:00 08/10/19 07:07 Novolog Vial Sliding Scale - SQ 2 unit ACHS [facility] Administration Protocol Isosorbide Mononitrate 30 mg 08/05/19 16:00 08/09/19 09:44 Imdur - PO 30 mg DAILY [facility] Administration Metoprolol Succinate 25 mg 08/05/19 16:00 08/09/19 09:44 Toprol Xl - PO 25 mg DAILY [facility] Administration Nifedipine 60 mg 08/05/19 15:57 08/09/19 21:41 Procardia Xl - PO 60 mg BID [facility] Administration Non-Formulary Medication 8 mcg 08/05/19 22:00 Lubiprostone [Amitiza] PO BID [facility] Potassium Chloride 40 meq 08/10/19 10:21 K-Dur - PO 08/10/19 10:22 ONCE ONE Spironolactone 50 mg 08/05/19 16:00 08/08/19 10:07 Aldactone - PO 50 mg DAILY [facility] Administration Valsartan 320 mg 08/05/19 16:00 08/08/19 10:03 Diovan - PO 320 mg DAILY [facility] Administration Impression 1. JUDIT 2. hematuria 3. a-fib 4. cellulitis 5. DM 6. 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
[2019-08-10] MEDS ORDERED: POTASSIUM CHLORIDE TABS 20 MEQ TABLET.ER (FP) PO ONE ×2 (10:43→11:00)
[2019-08-10] MEDS: metoPROLOL SUCCINATE 25 MG TAB.SR.24H (FP) PO SCH (10:55)
[2019-08-10] MEDS: CLOPIDOGREL BISULFATE 75 MG TABLET (FP) PO SCH (10:55)
[2019-08-10] MEDS: ISOSORBIDE MONONITRATE 30 MG TAB.SR.24H (FP) PO SCH (10:55)
[2019-08-10] MEDS: APIXABAN 5 MG TABLET PO SCH ×2 (10:55→21:12)
[2019-08-10] MEDS: NIFEdipine E.R 60 MG TABLET PO SCH ×2 (10:55→21:12)
[2019-08-10] MEDS: SODIUM CHLORIDE 1,000 ML IV SCH (10:56)
--- NOTE | 2019-08-10 15:15 | PN ---
Progress Note, Physician History of Present Illness: leg still very tender swollen painful - Current Medication List Current Medications: Active Medications Acetaminophen (Tylenol -) 650 mg PO Q6H PRN PRN Reason: PAIN LEVEL 1-5 Last Admin: 08/05/19 18:36 Dose: 650 mg Apixaban (Eliquis -) 5 mg PO BID [facility] Last Admin: 08/10/19 10:55 Dose: 5 mg Clopidogrel Bisulfate (Plavix -) 75 mg PO DAILY [facility] Last Admin: 08/10/19 10:55 Dose: 75 mg Sodium Chloride (Normal Saline -) 1,000 mls @ 42 mls/hr IV ASDIR [facility] Last Admin: 08/10/19 10:56 Dose: 42 mls/hr Insulin Aspart (Novolog Vial Sliding Scale -) 1 vial SQ ACHS [facility]; Protocol Last Admin: 08/10/19 12:00 Dose: 2 unit Isosorbide Mononitrate (Imdur -) 30 mg PO DAILY [facility] Last Admin: 08/10/19 10:55 Dose: 30 mg Metoprolol Succinate (Toprol Xl -) 25 mg PO DAILY [facility] Last Admin: 08/10/19 10:55 Dose: 25 mg Nifedipine (Procardia Xl -) 60 mg PO BID [facility] Last Admin: 08/10/19 10:55 Dose: 60 mg Non-Formulary Medication (Lubiprostone [Amitiza]) 8 mcg PO BID [facility] Spironolactone (Aldactone -) 50 mg PO DAILY [facility] Last Admin: 08/08/19 10:07 Dose: 50 mg Valsartan (Diovan -) 320 mg PO DAILY [facility] Last Admin: 08/08/19 10:03 Dose: 320 mg - Objective Vital Signs: Vital Signs Temperature 98.3 F 08/10/19 14:00 Pulse Rate 73 08/10/19 14:00 Respiratory Rate 18 08/10/19 14:00 Blood Pressure 134/64 08/10/19 14:00 O2 Sat by Pulse Oximetry (%) 97 08/10/19 14:00 Constitutional: Yes: Calm, Mild Distress Cardiovascular: Yes: S1, S2 Respiratory: Yes: Regular, CTA Bilaterally Gastrointestinal: Yes: Normal Bowel Sounds, Soft Musculoskeletal: Yes: WNL Extremities: Yes: Erythema, Other Integumentary: Yes: Other Neurological: Yes: Alert, Oriented Psychiatric: Yes: Alert, Oriented Labs: CBC, BMP 08/10/19 06:00 08/10/19 06:00 INR, PTT INR 1.60 (0.82-1.09) H 08/04/19 16:40 Assessment/Plan 78 year-old female with a PMH significant for HTN, HLD, CAD s/p [place] s/p stent, CVA x 2 (2008, 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 Admitted for RLE cellulitis. Right lower extremity cellulitis Hypertension Hyperlipidemia Coronary artery disease CVAs Atrial fibrillation Diastolic heart failure asthma Type II IDDM Left breast cancer plan abx close watch on creatinine rest as per the team
[2019-08-10] MEDS: CLINDAMYCIN 600MG PREMIX IVPB 600 MG/50 ML BAG IVPB SCH ×2 (15:35→18:10)
[2019-08-10] MEDS: CEFEPIME HCL/D5W 1 GM/50 ML BAG IVPB SCH (21:12)
[2019-08-11] MEDS: CLINDAMYCIN 600MG PREMIX IVPB 600 MG/50 ML BAG IVPB SCH ×3 (02:49→17:17)
[2019-08-11] MEDS: INSULIN SLIDING SCALE (NOVOLOG) 1 VIAL SQ SCH ×4 (06:11→21:20)
[2019-08-11 07:57] LABS: ALBUMIN 2.4 g/dl (3.4-5.0); BILIRUBIN,TOTAL 0.7 mg/dl (0.2-1); CALCIUM 8.1 mg/dl (8.5-10); CREATININE 1.9 mg/dl (0.55-1.3); POTASSIUM 3.5 mmol/L (3.5-5.1); TOT PROT 5.3 g/dl (6.4-8.2)
[2019-08-11] MEDS ORDERED: PT OWN MED DRAWER 7, Y5N ONE (09:05)
[2019-08-11] MEDS: metoPROLOL SUCCINATE 25 MG TAB.SR.24H (FP) PO SCH (09:28)
[2019-08-11] MEDS: APIXABAN 5 MG TABLET PO SCH ×2 (09:29→21:19)
[2019-08-11] MEDS: ISOSORBIDE MONONITRATE 30 MG TAB.SR.24H (FP) PO SCH (09:29)
[2019-08-11] MEDS: CEFEPIME HCL/D5W 1 GM/50 ML BAG IVPB SCH ×2 (09:29→21:20)
[2019-08-11] MEDS: NIFEdipine E.R 60 MG TABLET PO SCH ×2 (09:29→21:19)
[2019-08-11] MEDS: CLOPIDOGREL BISULFATE 75 MG TABLET (FP) PO SCH (09:29)
--- NOTE | 2019-08-11 12:33 | PN ---
Physical Exam: SUBJECTIVE: Patient seen and examined oob to chair. Leg still very painful OBJECTIVE: Vital Signs Period Temp Pulse Resp BP Sys/Mills Pulse Ox Last 24 Hr 97.4 F-99.4 F 69-78 18-18 131-148/49-64 95-99 GENERAL: Awake, alert, and fully oriented. LUNGS: Breath sounds equal, clear to auscultation bilaterally. No wheezes, and no crackles. No accessory muscle use. HEART: Regular rate and rhythm, S1 and S2 ABDOMEN: Soft, nontender, not distended UPPER EXTREMITIES: 2+ pulses, warm, well-perfused. No cyanosis. No clubbing. No peripheral edema. RIGHT LOWER EXTREMITY: Swelling improved, skin creases; erythema not improved, exquisitely tender, wound on posterior calf now necrotic NEUROLOGICAL: Cranial nerves II-XII intact. Normal speech. Laboratory Results - last 24 hr 08/10/19 08/10/19 08/11/19 17:54 21:18 05:36 Sodium Potassium Chloride Carbon Dioxide Anion Gap BUN Creatinine Est GFR (CKD-EPI)AfAm Est GFR (CKD-EPI)NonAf POC Glucometer 164 125 144 Random Glucose Calcium Total Bilirubin AST ALT Alkaline Phosphatase Total Protein Albumin 08/11/19 06:47 Sodium 138 Potassium 3.5 Chloride 108 H Carbon Dioxide 23 Anion Gap 7 L BUN 24.0 H Creatinine 1.9 H Est GFR (CKD-EPI)AfAm 28.96 Est GFR (CKD-EPI)NonAf 24.99 POC Glucometer Random Glucose 159 H Calcium 8.1 L Total Bilirubin 0.7 AST 17 ALT 18 Alkaline Phosphatase 42 L Total Protein 5.3 L Albumin 2.4 L Active Medications Generic Name Dose Route Start Last Admin Trade Name Freq PRN Reason Stop Dose Admin Acetaminophen 650 mg 08/04/19 20:16 08/05/19 18:36 Tylenol - PO 650 mg Q6H PRN Administration PAIN LEVEL 1-5 Apixaban 5 mg 08/05/19 15:56 08/11/19 09:29 Eliquis - PO 5 mg BID [facility] Administration Clopidogrel Bisulfate 75 mg 08/05/19 16:00 08/11/19 09:29 Plavix - PO 75 mg DAILY [facility] Administration Sodium Chloride 1,000 mls @ 42 mls/hr 08/10/19 10:36 08/10/19 10:56 Normal Saline - IV 42 mls/hr ASDIR [facility] Administration Cefepime HCl 1 gm in 50 mls @ 100 mls/hr 08/10/19 22:00 08/11/19 09:29 Maxipime 1 Gm Premix Ivpb IVPB 100 mls/hr BID [facility] Administration Protocol Clindamycin Phosphate 600 mg in 50 mls @ 100 mls/hr 08/10/19 15:30 08/11/19 09:26 Cleocin 600 Mg Premix Ivpb - IVPB 100 mls/hr Q8H-IV [facility] Administration Protocol Insulin Aspart 1 vial 08/04/19 22:00 08/11/19 06:11 Novolog Vial Sliding Scale - SQ Not Given [facility] Protocol Isosorbide Mononitrate 30 mg 08/05/19 16:00 08/11/19 09:29 Imdur - PO 30 mg DAILY [facility] Administration Metoprolol Succinate 25 mg 08/05/19 16:00 08/11/19 09:28 Toprol Xl - PO 25 mg DAILY [facility] Administration Nifedipine 60 mg 08/05/19 15:57 08/11/19 09:29 Procardia Xl - PO 60 mg BID [facility] Administration Non-Formulary Medication 8 mcg 08/05/19 22:00 Lubiprostone [Amitiza] PO BID [facility] Spironolactone 50 mg 08/05/19 16:00 08/08/19 10:07 Aldactone - PO 50 mg DAILY [facility] Administration Valsartan 320 mg 08/05/19 16:00 08/08/19 10:03 Diovan - PO 320 mg DAILY [facility] Administration ASSESSMENT/PLAN: 78 year-old female with a PMH significant for HTN, HLD, CAD s/p NC s/p stent, CVA x 2 (2008, 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 Admitted for RLE cellulitis. Right lower extremity cellulitis Peripheral vascular disease --worsening erythema, pain, wound necrotic, needs debridement, again requested vascular to re-consult --received Zosyn x 6 days; stopped due to JUDIT --continue cefepime 1g q12h (day #2) and clinda IV 600mg q8h (day #2) --ID following JUDIT --Cr 0.8 on admission, peaked 2.2, today 1.9 --continue to hold spironolactone and valsartan --cautious gentle IV fluids, monitor for signs of CHF overload --08/10 US: mild bilateral hydronephrosis v. parapelvic cysts; radiology recommends contrast CT with delayed imaging; renal recommends against contrast study; hold for now Hypertension --BP stable --continue nifedipine; holding spironolactone and valsartan due to JUDIT Hyperlipidemia --not on statin therapy Coronary artery disease --continue Plavix, isosorbide, ToprolXL; not on ASA Diastolic heart failure --continue ToprolXL, telmisartan CVAs --continue Plavix; not on ASA, statin Atrial fibrillation --continue Toprol XL for rate control --continue Eliquis Asthma -stable Type II IDDM --Novolog sliding scale coverage Left breast cancer --stable FEN Fluids: NS@42mL/hr Electrolytes: replete as indicated Nutrition: diabetic DVT prophylaxis: on Eliquis Physical therapy Dispo: continues to require inpatient care. Full code. Visit type - Emergency Visit Emergency Visit: Yes ED Registration Date: 08/04/19 Care time: The patient presented to the Emergency Department on the above date and was hospitalized for further evaluation of their emergent condition. - New Patient This patient is new to me today: No - Critical Care Critical Care patient: No
[2019-08-11] MEDS: SODIUM CHLORIDE 1,000 ML IV SCH (12:41)
--- NOTE | 2019-08-11 14:51 | PN ---
Progress Note, Physician History of Present Illness: Pt seen and examined at bedside. She denies shortness of breath. She feels that her leg is getting worse. - Current Medication List Current Medications: Active Medications Acetaminophen (Tylenol -) 650 mg PO Q6H PRN PRN Reason: PAIN LEVEL 1-5 Last Admin: 08/05/19 18:36 Dose: 650 mg Apixaban (Eliquis -) 5 mg PO BID [facility] Last Admin: 08/11/19 09:29 Dose: 5 mg Clopidogrel Bisulfate (Plavix -) 75 mg PO DAILY [facility] Last Admin: 08/11/19 09:29 Dose: 75 mg Sodium Chloride (Normal Saline -) 1,000 mls @ 42 mls/hr IV ASDIR [facility] 234 B[facility]S AT [facility] Last Admin: 08/11/19 12:41 Dose: 42 mls/hr Cefepime HCl (Maxipime 1 Gm Premix Ivpb) 1 gm in 50 mls @ 100 mls/hr IVPB BID [facility]S [facility]; Protocol Last Admin: 08/11/19 09:29 Dose: 100 mls/hr Clindamycin Phosphate (Cleocin 600 Mg Premix Ivpb -) 600 mg in 50 mls @ 100 mls /hr IVPB Q8H-IV [facility]S [facility]; Protocol Last Admin: 08/11/19 09:26 Dose: 100 mls/hr Insulin Aspart (Novolog Vial Sliding Scale -) 1 vial SQ ACHS [facility]; Protocol Last Admin: 08/11/19 12:41 Dose: Not Given Isosorbide Mononitrate (Imdur -) 30 mg PO DAILY [facility] Last Admin: 08/11/19 09:29 Dose: 30 mg Metoprolol Succinate (Toprol Xl -) 25 mg PO DAILY [facility] Last Admin: 08/11/19 09:28 Dose: 25 mg Nifedipine (Procardia Xl -) 60 mg PO BID [facility] Last Admin: 08/11/19 09:29 Dose: 60 mg Non-Formulary Medication (Lubiprostone [Amitiza]) 8 mcg PO BID [facility] Spironolactone (Aldactone -) 50 mg PO DAILY [facility] Last Admin: 08/08/19 10:07 Dose: 50 mg Valsartan (Diovan -) 320 mg PO DAILY [facility] Last Admin: 08/08/19 10:03 Dose: 320 mg - Objective Vital Signs: Vital Signs Temperature 97.4 F L 08/11/19 13:57 Pulse Rate 68 08/11/19 13:57 Respiratory Rate 18 08/11/19 13:57 Blood Pressure 130/51 L 08/11/19 13:57 O2 Sat by Pulse Oximetry (%) 94 L 08/11/19 13:57 Constitutional: Yes: Calm Eyes: Yes: Conjunctiva Clear HENT: Yes: Atraumatic Neck: Yes: Supple Cardiovascular: Yes: S1, S2 Respiratory: Yes: CTA Bilaterally Gastrointestinal: Yes: Soft Genitourinary: Yes: WNL Edema: Yes Edema: RLE: 1+ Integumentary: Yes: Erythema Neurological: Yes: Oriented Psychiatric: Yes: Oriented Labs: CBC, BMP 08/10/19 06:00 08/11/19 06:47 INR, PTT INR 1.60 (0.82-1.09) H 08/04/19 16:40 Problem List - Problems (1) JUDIT (acute kidney injury) Code(s): N17.9 - ACUTE KIDNEY FAILURE, UNSPECIFIED (2) Cellulitis of right lower extremity Code(s): L03.115 - CELLULITIS OF RIGHT LOWER LIMB Assessment/Plan Current Medications Generic Name Dose Route Start Last Admin Trade Name Freq PRN Reason Stop Dose Admin Acetaminophen 650 mg 08/04/19 20:16 08/05/19 18:36 Tylenol - PO 650 mg Q6H PRN Administration PAIN LEVEL 1-5 Apixaban 5 mg 08/05/19 15:56 08/11/19 09:29 Eliquis - PO 5 mg BID [facility] Administration Clopidogrel Bisulfate 75 mg 08/05/19 16:00 08/11/19 09:29 Plavix - PO 75 mg DAILY [facility] Administration Sodium Chloride 1,000 mls @ 42 mls/hr 08/10/19 10:36 08/11/19 12:41 Normal Saline - IV 42 mls/hr ASDIR [facility] Administration Cefepime HCl 1 gm in 50 mls @ 100 mls/hr 08/10/19 22:00 08/11/19 09:29 Maxipime 1 Gm Premix Ivpb IVPB 100 mls/hr BID [facility] Administration Protocol Clindamycin Phosphate 600 mg in 50 mls @ 100 mls/hr 08/10/19 15:30 08/11/19 09:26 Cleocin 600 Mg Premix Ivpb - IVPB 100 mls/hr Q8H-IV [facility] Administration Protocol Insulin Aspart 1 vial 08/04/19 22:00 08/11/19 12:41 Novolog Vial Sliding Scale - SQ Not Given ACHS [facility] 234 BEDS AT [facility] Protocol Isosorbide Mononitrate 30 mg 08/05/19 16:00 08/11/19 09:29 Imdur - PO 30 mg DAILY [facility] Administration Metoprolol Succinate 25 mg 08/05/19 16:00 08/11/19 09:28 Toprol Xl - PO 25 mg DAILY [facility] Administration Nifedipine 60 mg 08/05/19 15:57 08/11/19 09:29 Procardia Xl - PO 60 mg BID [facility] Administration Non-Formulary Medication 8 mcg 08/05/19 22:00 Lubiprostone [Amitiza] PO BID [facility] Spironolactone 50 mg 08/05/19 16:00 08/08/19 10:07 Aldactone - PO 50 mg DAILY [facility] Administration Valsartan 320 mg 08/05/19 16:00 08/08/19 10:03 Diovan - PO 320 mg DAILY [facility] Administration Impression 1. JUDIT 2. hematuria 3. a-fib 4. cellulitis 5. DM 6. h/o renal cyst PLAN - renal function is starting to improve - hold aldactone for now - ID follow up - surgery follow up - discussed with medical team - urology eval for ultrasound findings, would not recommend iv contrast at this time - monitor renal function
[2019-08-12] MEDS: CLINDAMYCIN 600MG PREMIX IVPB 600 MG/50 ML BAG IVPB SCH ×3 (01:30→17:20)
[2019-08-12] MEDS: INSULIN SLIDING SCALE (NOVOLOG) 1 VIAL SQ SCH ×3 (06:27→21:20)
[2019-08-12 07:45] LABS: BASO % 0.3 % (0-2.0); EOS % 2.5 % (0-4.5); HEMATOCRIT 37.6 % (32.4-45.2); HEMOGLOBIN 12.6 GM/dl (10.7-15.3); LYMPH % 14.1 % (8-40); MCH 31.2 pg (25.7-33.7); MCHC 33.5 g/dl (32.0-36.0); MEAN PLT VOLUME 10.2 fl (7.5-11.1); MONO % 8.2 % (3.8-10.2); NEUT % 74.9 % (42.8-82.8); PLATELET COUNT 279 K/MM3 (134-434); RBC 4.05 M/mm3 (3.60-5.2); RDW 11.9 % (11.6-15.6); WHITE BLOOD COUNT 9.9 K/mm3 (4.0-10.8)
[2019-08-12 07:52] LABS: ALBUMIN 2.5 g/dl (3.4-5.0); BILIRUBIN,TOTAL 0.7 mg/dl (0.2-1); CALCIUM 8.5 mg/dl (8.5-10); CREATININE 1.9 mg/dl (0.55-1.3); MAGNESIUM 1.8 mg/dL (1.8-2.4); POTASSIUM 3.7 mmol/L (3.5-5.1); TOT PROT 5.6 g/dl (6.4-8.2)
--- NOTE | 2019-08-12 07:54 | PN ---
Progress Note (short form) - Note Progress Note: surgery Patient being followed for right LE cellulitis, asked to reconsult. Patient seen and examined at bedside with no new complaints. States the pain is improving. She is tolerating her diet and denies any chest pain SOB, N/V, fever or chills. Vital Signs Temp 99.0 F 08/12/19 06:00 Pulse 78 08/12/19 06:00 Resp 17 08/12/19 06:00 BP 150/57 L 08/12/19 06:00 Pulse Ox 96 08/12/19 06:45 Intake & Output 08/11/19 08/11/19 08/12/19 11:59 23:59 11:59 Intake Total 450 1666 520 Balance 450 1666 520 Weight 156 lb Intake: IV 336 420 Normal Saline - 1,000 ml 336 420 @ 42 mls/hr IV ASDIR THOMAS Rx#:[id number] IVPB 250 100 Oral 450 1080 Other: Voiding Method Toilet Toilet Toilet # Unmeasured Voids Void 1 Bowel Movement No Height 5 ft 3 in Body Mass Index (BMI) 27.6 PHYSICAL EXAM: GENERAL: Awake, alert, and fully oriented, in no acute distress. HEAD: Normal with no signs of trauma. EYES: PERRL, sclera anicteric, conjunctiva clear. LUNGS: breathing comfortably, No accessory muscle use. UPPER EXTREMITIES: warm, well-perfused. No cyanosis. No peripheral edema. RLE: Palpable DP and PT pulses, deep erythema from foot to lovelace, circumferential, no lesions, rashes or open skin, no pus, no drainage, no blisters; exquisitely tender, diffuse ecchymosis with no peripheral edema. foot and toes warm and well perfused. NEUROLOGICAL: Normal speech, gait not observed. PSYCH: Cooperative. Good eye contact. Appropriate mood and affect. SKIN: Warm, dry, normal turgor, no rashes or lesions noted. CT right lower extremity without contrast 08/04/19: Diffuse subcutaneous edema consistent with cellulitis, no signs of abscess or osteomyelitis, no signs of subcutaneous emphysema Problem List - Problems (1) Cellulitis of right lower extremity Assessment/Plan: Plan -pt appears to have significant cellulitis of RLE which is improving from previous surgical PA exam. -no need for surgical intervention at this time -IV abx per ID/med -compression stocking/dressing once cellulitis has resolved -pt may follow up with wound care clinic as outpatient Evaluation and plan discussed with Dr Krishna. Code(s): L03.115 - CELLULITIS OF RIGHT LOWER LIMB
--- NOTE | 2019-08-12 08:36 | PN ---
Physical Exam: SUBJECTIVE: Patient seen and examined OBJECTIVE: Vital Signs Period Temp Pulse Resp BP Sys/Mills Pulse Ox Last 24 Hr 97.4 F-99.2 F 68-78 17-18 130-150/50-57 94-97 GENERAL: Awake, alert, and fully oriented. LUNGS: Breath sounds equal, clear to auscultation bilaterally. No wheezes, and no crackles. No accessory muscle use. HEART: Regular rate and rhythm, S1 and S2 ABDOMEN: Soft, nontender, not distended UPPER EXTREMITIES: 2+ pulses, warm, well-perfused. No cyanosis. No clubbing. No peripheral edema. RIGHT LOWER EXTREMITY: Swelling improved, skin creases; erythema not improved, exquisitely tender, wound on posterior calf now necrotic NEUROLOGICAL: Cranial nerves II-XII intact. Normal speech. Laboratory Results - last 24 hr 08/10/19 08/11/19 08/11/19 06:00 12:37 16:44 WBC RBC Hgb Hct MCV MCH MCHC RDW Plt Count MPV Absolute Neuts (auto) Neutrophils % Lymphocytes % Monocytes % Eosinophils % Basophils % Sodium Potassium Chloride Carbon Dioxide Anion Gap BUN Creatinine Est GFR (CKD-EPI)AfAm Est GFR (CKD-EPI)NonAf POC Glucometer 186 135 Random Glucose Calcium Magnesium Total Bilirubin AST ALT Alkaline Phosphatase Total Protein Albumin Urine Eosinophils None seen 08/11/19 08/12/19 08/12/19 20:31 06:08 07:15 WBC RBC Hgb Hct MCV MCH MCHC RDW Plt Count MPV Absolute Neuts (auto) Neutrophils % Lymphocytes % Monocytes % Eosinophils % Basophils % Sodium 140 Potassium 3.7 Chloride 107 Carbon Dioxide 24 Anion Gap 9 BUN 23.0 H Creatinine 1.9 H Est GFR (CKD-EPI)AfAm 28.96 Est GFR (CKD-EPI)NonAf 24.99 POC Glucometer 192 141 Random Glucose 164 H Calcium 8.5 Magnesium 1.8 Total Bilirubin 0.7 AST 18 ALT 20 Alkaline Phosphatase 43 L Total Protein 5.6 L Albumin 2.5 L Urine Eosinophils 08/12/19 07:15 WBC 9.9 RBC 4.05 Hgb 12.6 Hct 37.6 MCV 93.0 MCH 31.2 MCHC 33.5 RDW 11.9 Plt Count 279 MPV 10.2 Absolute Neuts (auto) 7.5 Neutrophils % 74.9 Lymphocytes % 14.1 Monocytes % 8.2 Eosinophils % 2.5 Basophils % 0.3 Sodium Potassium Chloride Carbon Dioxide Anion Gap BUN Creatinine Est GFR (CKD-EPI)AfAm Est GFR (CKD-EPI)NonAf POC Glucometer Random Glucose Calcium Magnesium Total Bilirubin AST ALT Alkaline Phosphatase Total Protein Albumin Urine Eosinophils Active Medications Generic Name Dose Route Start Last Admin Trade Name Freq PRN Reason Stop Dose Admin Acetaminophen 650 mg 08/04/19 20:16 08/05/19 18:36 Tylenol - PO 650 mg Q6H PRN Administration PAIN LEVEL 1-5 Apixaban 5 mg 08/05/19 15:56 08/11/19 21:19 Eliquis - PO 5 mg BID THOMAS Administration Clopidogrel Bisulfate 75 mg 08/05/19 16:00 08/11/19 09:29 Plavix - PO 75 mg DAILY THOMAS Administration Sodium Chloride 1,000 mls @ 42 mls/hr 08/10/19 10:36 08/11/19 12:41 Normal Saline - IV 42 mls/hr ASDIR THOMAS Administration Cefepime HCl 1 gm in 50 mls @ 100 mls/hr 08/10/19 22:00 08/11/19 21:20 Maxipime 1 Gm Premix Ivpb IVPB 100 mls/hr BID THOMAS Administration Protocol Clindamycin Phosphate 600 mg in 50 mls @ 100 mls/hr 08/10/19 15:30 08/12/19 01:30 Cleocin 600 Mg Premix Ivpb - IVPB 100 mls/hr Q8H-IV THOMAS Administration Protocol Insulin Aspart 1 vial 08/04/19 22:00 08/12/19 06:27 Novolog Vial Sliding Scale - SQ Not Given ACHS [facility] Protocol Isosorbide Mononitrate 30 mg 08/05/19 16:00 08/11/19 09:29 Imdur - PO 30 mg DAILY THOMAS Administration Metoprolol Succinate 25 mg 08/05/19 16:00 08/11/19 09:28 Toprol Xl - PO 25 mg DAILY THOMAS Administration Nifedipine 60 mg 08/05/19 15:57 08/11/19 21:19 Procardia Xl - PO 60 mg BID THOMAS Administration Non-Formulary Medication 8 mcg 08/05/19 22:00 Lubiprostone [Amitiza] PO BID THOMAS Spironolactone 50 mg 08/05/19 16:00 08/08/19 10:07 Aldactone - PO 50 mg DAILY THOMAS Administration Valsartan 320 mg 08/05/19 16:00 08/08/19 10:03 Diovan - PO 320 mg DAILY THOMAS Administration ASSESSMENT/PLAN: 78 year-old female with a PMH significant for HTN, HLD, CAD s/p [place] s/p stent, CVA x 2 (2008, 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 Admitted for RLE cellulitis. Right lower extremity cellulitis Peripheral vascular disease --worsening erythema, pain, wound necrotic, needs debridement, needs further surgical evaluation by Dr. Krishna --received Zosyn x 6 days; stopped due to JUDIT --continue cefepime 1g q12h (day #3) and clinda IV 600mg q8h (day #3) --ID following JUDIT --Cr 0.8 on admission, peaked 2.2, today 1.9 --continue to hold spironolactone and valsartan --cautious gentle IV fluids, monitor for signs of CHF overload --08/10 US: mild bilateral hydronephrosis v. parapelvic cysts; radiology recommends contrast CT with delayed imaging; renal recommends against contrast study; hold for now Hypertension --BP stable --continue nifedipine; holding spironolactone and valsartan due to JUDIT Hyperlipidemia --not on statin therapy Coronary artery disease --continue Plavix, isosorbide, ToprolXL; not on ASA Diastolic heart failure --continue ToprolXL, telmisartan CVAs --continue Plavix; not on ASA, statin Atrial fibrillation --continue Toprol XL for rate control --continue Eliquis Asthma -stable Type II IDDM --Novolog sliding scale coverage Left breast cancer --stable FEN Fluids: NS@42mL/hr Electrolytes: replete as indicated Nutrition: diabetic DVT prophylaxis: on Eliquis Physical therapy Dispo: continues to require inpatient care. Full code. Visit type - Emergency Visit Emergency Visit: Yes ED Registration Date: 08/04/19 Care time: The patient presented to the Emergency Department on the above date and was hospitalized for further evaluation of their emergent condition. - New Patient This patient is new to me today: No - Critical Care Critical Care patient: No
[2019-08-12] MEDS: APIXABAN 5 MG TABLET PO SCH ×2 (09:15→21:21)
[2019-08-12] MEDS: NIFEdipine E.R 60 MG TABLET PO SCH ×2 (09:15→21:21)
[2019-08-12] MEDS: metoPROLOL SUCCINATE 25 MG TAB.SR.24H (FP) PO SCH (09:15)
[2019-08-12] MEDS: ISOSORBIDE MONONITRATE 30 MG TAB.SR.24H (FP) PO SCH (09:15)
[2019-08-12] MEDS: CLOPIDOGREL BISULFATE 75 MG TABLET (FP) PO SCH (09:15)
[2019-08-12] MEDS: CEFEPIME HCL/D5W 1 GM/50 ML BAG IVPB SCH ×2 (09:16→21:21)
[2019-08-12] MEDS: SODIUM CHLORIDE 1,000 ML IV SCH (09:47)
[2019-08-12] MEDS ORDERED: COLLAGENASE CLOSTRIDIUM HIST. 30 GRAMS TUBE TP SCH (10:00)
--- NOTE | 2019-08-12 11:10 | PN ---
Progress Note (short form) - Note Progress Note: Vascular Surgery pt seen and examined. Right lower ext cellulitis now for [address] scan on admission was negative. Right leg is warm to touch. Pt has palpable pulses. Pt has eschar on calf -- eschar removed today with good underlying granulation tissue. No signs of drainage or abscess. Cont IV antibiotics. Pt feels better today, pain is 3/10 Discussed with team - if does not get better by saturday, can do repeat CT scan. Will place santyl to wound daily. Dominick Krishna DO
--- NOTE | 2019-08-12 12:31 | PN ---
Progress Note, Physician History of Present Illness: Pt seen and examined at bedside. She feels that her leg is getting better. - Current Medication List Current Medications: Active Medications Acetaminophen (Tylenol -) 650 mg PO Q6H PRN PRN Reason: PAIN LEVEL 1-5 Last Admin: 08/05/19 18:36 Dose: 650 mg Apixaban (Eliquis -) 5 mg PO BID [facility] Last Admin: 08/12/19 09:15 Dose: 5 mg Clopidogrel Bisulfate (Plavix -) 75 mg PO DAILY [facility] Last Admin: 08/12/19 09:15 Dose: 75 mg Collagenase (Santyl -) 1 applic TP DAILY [facility]; Protocol Cefepime HCl (Maxipime 1 Gm Premix Ivpb) 1 gm in 50 mls @ 100 mls/hr IVPB BID [facility]; Protocol Last Admin: 08/12/19 09:16 Dose: 100 mls/hr Clindamycin Phosphate (Cleocin 600 Mg Premix Ivpb -) 600 mg in 50 mls @ 100 mls /hr IVPB Q8H-IV [facility]; Protocol Last Admin: 08/12/19 09:15 Dose: 100 mls/hr Insulin Aspart (Novolog Vial Sliding Scale -) 1 vial SQ ACHS [facility]; Protocol Last Admin: 08/12/19 06:27 Dose: Not Given Isosorbide Mononitrate (Imdur -) 30 mg PO DAILY [facility] Last Admin: 08/12/19 09:15 Dose: 30 mg Metoprolol Succinate (Toprol Xl -) 25 mg PO DAILY [facility] Last Admin: 08/12/19 09:15 Dose: 25 mg Nifedipine (Procardia Xl -) 60 mg PO BID [facility] Last Admin: 08/12/19 09:15 Dose: 60 mg Non-Formulary Medication (Lubiprostone [Amitiza]) 8 mcg PO BID [facility] Spironolactone (Aldactone -) 50 mg PO DAILY [facility] Last Admin: 08/08/19 10:07 Dose: 50 mg Valsartan (Diovan -) 320 mg PO DAILY [facility] Last Admin: 08/08/19 10:03 Dose: 320 mg - Objective Vital Signs: Vital Signs Temperature 99.0 F 08/12/19 06:00 Pulse Rate 78 08/12/19 06:00 Respiratory Rate 17 08/12/19 06:00 Blood Pressure 150/57 L 08/12/19 06:00 O2 Sat by Pulse Oximetry (%) 96 08/12/19 06:45 Constitutional: Yes: Calm Eyes: Yes: Conjunctiva Clear HENT: Yes: Atraumatic Neck: Yes: Supple Cardiovascular: Yes: S1, S2 Respiratory: Yes: CTA Bilaterally Genitourinary: Yes: WNL Musculoskeletal: Yes: WNL Edema: Yes Integumentary: Yes: Erythema Neurological: Yes: Oriented Psychiatric: Yes: Oriented Labs: CBC, BMP 08/12/19 07:15 08/12/19 07:15 INR, PTT INR 1.60 (0.82-1.09) H 08/04/19 16:40 Problem List - Problems (1) JUDIT (acute kidney injury) Code(s): N17.9 - ACUTE KIDNEY FAILURE, UNSPECIFIED (2) Cellulitis of right lower extremity Code(s): L03.115 - CELLULITIS OF RIGHT LOWER LIMB Assessment/Plan Current Medications Generic Name Dose Route Start Last Admin Trade Name Freq PRN Reason Stop Dose Admin Acetaminophen 650 mg 08/04/19 20:16 08/05/19 18:36 Tylenol - PO 650 mg Q6H PRN Administration PAIN LEVEL 1-5 Apixaban 5 mg 08/05/19 15:56 08/12/19 09:15 Eliquis - PO 5 mg BID THOMAS Administration Clopidogrel Bisulfate 75 mg 08/05/19 16:00 08/12/19 09:15 Plavix - PO 75 mg DAILY THOMAS Administration Collagenase 1 applic 08/12/19 10:00 Santyl - TP DAILY THOMAS Protocol Cefepime HCl 1 gm in 50 mls @ 100 mls/hr 08/10/19 22:00 08/12/19 09:16 Maxipime 1 Gm Premix Ivpb IVPB 100 mls/hr BID THOMAS Administration Protocol Clindamycin Phosphate 600 mg in 50 mls @ 100 mls/hr 08/10/19 15:30 08/12/19 09:15 Cleocin 600 Mg Premix Ivpb - IVPB 100 mls/hr Q8H-IV THOMAS Administration Protocol Insulin Aspart 1 vial 08/04/19 22:00 08/12/19 06:27 Novolog Vial Sliding Scale - SQ Not Given ACHS THOMAS Protocol Isosorbide Mononitrate 30 mg 08/05/19 16:00 02/19/20 09:15 Imdur - PO 30 mg DAILY THOMAS Administration Metoprolol Succinate 25 mg 08/05/19 16:00 08/12/19 09:15 Toprol Xl - PO 25 mg DAILY THOMAS Administration Nifedipine 60 mg 08/05/19 15:57 08/12/19 09:15 Procardia Xl - PO 60 mg BID THOMAS Administration Non-Formulary Medication 8 mcg 08/05/19 22:00 Lubiprostone [Amitiza] PO BID THOMAS Spironolactone 50 mg 08/05/19 16:00 08/08/19 10:07 Aldactone - PO 50 mg DAILY THOMAS Administration Valsartan 320 mg 08/05/19 16:00 08/08/19 10:03 Diovan - PO 320 mg DAILY THOMAS Administration Impression 1. JUDIT 2. hematuria 3. a-fib 4. cellulitis 5. DM 6. 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
[2019-08-12] MEDS ORDERED: PT OWN MED DRAWER 7, Y5N ONE (14:02)
--- NOTE | 2019-08-12 15:00 | PN ---
Progress Note, Physician History of Present Illness: leg still very tender and painful blebs - Current Medication List Current Medications: Active Medications Acetaminophen (Tylenol -) 650 mg PO Q6H PRN PRN Reason: PAIN LEVEL 1-5 Last Admin: 08/05/19 18:36 Dose: 650 mg Apixaban (Eliquis -) 5 mg PO BID [facility] Last Admin: 08/12/19 09:15 Dose: 5 mg Clopidogrel Bisulfate (Plavix -) 75 mg PO DAILY [facility] Last Admin: 08/12/19 09:15 Dose: 75 mg Collagenase (Santyl -) 1 applic TP DAILY [facility]; Protocol Last Admin: 08/12/19 14:11 Dose: 1 applic Cefepime HCl (Maxipime 1 Gm Premix Ivpb) 1 gm in 50 mls @ 100 mls/hr IVPB BID [facility]; Protocol Last Admin: 08/12/19 09:16 Dose: 100 mls/hr Clindamycin Phosphate (Cleocin 600 Mg Premix Ivpb -) 600 mg in 50 mls @ 100 mls /hr IVPB Q8H-IV [facility]; Protocol Last Admin: 08/12/19 09:15 Dose: 100 mls/hr Insulin Aspart (Novolog Vial Sliding Scale -) 1 vial SQ ACHS [facility]; Protocol Last Admin: 08/12/19 13:00 Dose: 2 unit Isosorbide Mononitrate (Imdur -) 30 mg PO DAILY [facility] Last Admin: 08/12/19 09:15 Dose: 30 mg Metoprolol Succinate (Toprol Xl -) 25 mg PO DAILY [facility] Last Admin: 08/12/19 09:15 Dose: 25 mg Nifedipine (Procardia Xl -) 60 mg PO BID [facility] Last Admin: 08/12/19 09:15 Dose: 60 mg Non-Formulary Medication (Lubiprostone [Amitiza]) 8 mcg PO BID [facility] Spironolactone (Aldactone -) 50 mg PO DAILY [facility] Last Admin: 08/08/19 10:07 Dose: 50 mg Valsartan (Diovan -) 320 mg PO DAILY [facility] Last Admin: 08/08/19 10:03 Dose: 320 mg - Objective Vital Signs: Vital Signs Temperature 97.9 F 08/12/19 14:00 Pulse Rate 69 08/12/19 14:00 Respiratory Rate 19 08/12/19 14:00 Blood Pressure 131/51 L 08/12/19 14:00 O2 Sat by Pulse Oximetry (%) 98 08/12/19 14:00 Constitutional: Yes: Calm, Mild Distress Cardiovascular: Yes: S1, S2 Respiratory: Yes: Regular, CTA Bilaterally Gastrointestinal: Yes: Normal Bowel Sounds, Soft Musculoskeletal: Yes: WNL Extremities: Yes: Other Wound/Incision: Yes: Other Neurological: Yes: Alert, Oriented Psychiatric: Yes: Alert, Oriented Labs: CBC, BMP 08/12/19 07:15 08/12/19 07:15 INR, PTT INR 1.60 (0.82-1.09) H 08/04/19 16:40 Assessment/Plan 78 year-old female with a PMH significant for HTN, HLD, CAD s/p [place] s/p stent, CVA x 2 (2008, 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 Admitted for RLE cellulitis. Right lower extremity cellulitis Hypertension Hyperlipidemia Coronary artery disease CVAs Atrial fibrillation Diastolic heart failure asthma Type II IDDM Left breast cancer plan abx close watch on creatinine rest as per the team
--- NOTE | 2019-08-12 15:02 | PN ---
Progress Note, Physician History of Present Illness: stable wound dressed - Current Medication List Current Medications: Active Medications Acetaminophen (Tylenol -) 650 mg PO Q6H PRN PRN Reason: PAIN LEVEL 1-5 Last Admin: 08/05/19 18:36 Dose: 650 mg Apixaban (Eliquis -) 5 mg PO BID [facility] Last Admin: 08/12/19 09:15 Dose: 5 mg Clopidogrel Bisulfate (Plavix -) 75 mg PO DAILY [facility] Last Admin: 08/12/19 09:15 Dose: 75 mg Collagenase (Santyl -) 1 applic TP DAILY [facility]; Protocol Last Admin: 08/12/19 14:11 Dose: 1 applic Cefepime HCl (Maxipime 1 Gm Premix Ivpb) 1 gm in 50 mls @ 100 mls/hr IVPB BID [facility]; Protocol Last Admin: 08/12/19 09:16 Dose: 100 mls/hr Clindamycin Phosphate (Cleocin 600 Mg Premix Ivpb -) 600 mg in 50 mls @ 100 mls /hr IVPB Q8H-IV [facility]; Protocol Last Admin: 08/12/19 09:15 Dose: 100 mls/hr Insulin Aspart (Novolog Vial Sliding Scale -) 1 vial SQ ACHS [facility]; Protocol Last Admin: 08/12/19 13:00 Dose: 2 unit Isosorbide Mononitrate (Imdur -) 30 mg PO DAILY [facility] Last Admin: 08/12/19 09:15 Dose: 30 mg Metoprolol Succinate (Toprol Xl -) 25 mg PO DAILY [facility] Last Admin: 08/12/19 09:15 Dose: 25 mg Nifedipine (Procardia Xl -) 60 mg PO BID [facility] Last Admin: 08/12/19 09:15 Dose: 60 mg Non-Formulary Medication (Lubiprostone [Amitiza]) 8 mcg PO BID [facility] Spironolactone (Aldactone -) 50 mg PO DAILY [facility] Last Admin: 08/08/19 10:07 Dose: 50 mg Valsartan (Diovan -) 320 mg PO DAILY [facility] Last Admin: 08/08/19 10:03 Dose: 320 mg - Objective Vital Signs: Vital Signs Temperature 97.9 F 08/12/19 14:00 Pulse Rate 69 08/12/19 14:00 Respiratory Rate 19 08/12/19 14:00 Blood Pressure 131/51 L 08/12/19 14:00 O2 Sat by Pulse Oximetry (%) 98 08/12/19 14:00 Constitutional: Yes: Calm, Mild Distress Cardiovascular: Yes: S1, S2 Respiratory: Yes: Regular, CTA Bilaterally Gastrointestinal: Yes: Normal Bowel Sounds, Soft Musculoskeletal: Yes: WNL Extremities: Yes: Other Wound/Incision: Yes: Dressing Dry and Intact Neurological: Yes: Alert, Oriented Psychiatric: Yes: Alert, Oriented Labs: CBC, BMP 08/12/19 07:15 08/12/19 07:15 INR, PTT INR 1.60 (0.82-1.09) H 08/04/19 16:40 Assessment/Plan 78 year-old female with a PMH significant for HTN, HLD, CAD s/p [place] s/p stent, CVA x 2 (2008, 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 Admitted for RLE cellulitis. Right lower extremity cellulitis Hypertension Hyperlipidemia Coronary artery disease CVAs Atrial fibrillation Diastolic heart failure asthma Type II IDDM Left breast cancer plan vascular note noted procedure noted continue abx wound care rest as per the team
[2019-08-13] MEDS: CLINDAMYCIN 600MG PREMIX IVPB 600 MG/50 ML BAG IVPB SCH ×3 (01:24→18:13)
[2019-08-13] MEDS: INSULIN SLIDING SCALE (NOVOLOG) 1 VIAL SQ SCH ×4 (06:36→22:05)
--- NOTE | 2019-08-13 07:51 | PN ---
Progress Note, Physician Chief Complaint: Examined in bed. States pain is much better in leg. Small amount of drainage noted from calf. 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 Admitted for RLE cellulitis. - Current Medication List Current Medications: Active Medications Acetaminophen (Tylenol -) 650 mg PO Q6H PRN PRN Reason: PAIN LEVEL 1-5 Last Admin: 08/05/19 18:36 Dose: 650 mg Apixaban (Eliquis -) 5 mg PO BID [facility] Last Admin: 08/12/19 21:21 Dose: 5 mg Clopidogrel Bisulfate (Plavix -) 75 mg PO DAILY [facility] Last Admin: 08/12/19 09:15 Dose: 75 mg Collagenase (Santyl -) 1 applic TP DAILY [facility]; Protocol Cefepime HCl (Maxipime 1 Gm Premix Ivpb) 1 gm in 50 mls @ 100 mls/hr IVPB BID [facility]; Protocol Last Admin: 08/12/19 21:21 Dose: 100 mls/hr Clindamycin Phosphate (Cleocin 600 Mg Premix Ivpb -) 600 mg in 50 mls @ 100 mls /hr IVPB Q8H-IV [facility]; Protocol Last Admin: 08/13/19 01:24 Dose: 100 mls/hr Insulin Aspart (Novolog Vial Sliding Scale -) 1 vial SQ ACHS [facility]; Protocol Last Admin: 08/13/19 06:36 Dose: Not Given Isosorbide Mononitrate (Imdur -) 30 mg PO DAILY [facility] Last Admin: 08/12/19 09:15 Dose: 30 mg Metoprolol Succinate (Toprol Xl -) 25 mg PO DAILY [facility] Last Admin: 08/12/19 09:15 Dose: 25 mg Nifedipine (Procardia Xl -) 60 mg PO BID [facility] Last Admin: 08/12/19 21:21 Dose: 60 mg Non-Formulary Medication (Lubiprostone [Amitiza]) 8 mcg PO BID [facility] Spironolactone (Aldactone -) 50 mg PO DAILY [facility] Last Admin: 02/15/20 10:07 Dose: 50 mg Valsartan (Diovan -) 320 mg PO DAILY [facility] Last Admin: 08/08/19 10:03 Dose: 320 mg - Objective Vital Signs: Vital Signs Temperature 98.1 F 08/13/19 06:00 Pulse Rate 68 08/13/19 06:00 Respiratory Rate 17 08/13/19 06:00 Blood Pressure 139/52 L 08/13/19 06:00 O2 Sat by Pulse Oximetry (%) 95 08/13/19 06:00 Constitutional: Yes: Well Nourished, No Distress, Calm Eyes: Yes: WNL, Conjunctiva Clear HENT: Yes: WNL, Atraumatic, Normocephalic Neck: Yes: WNL, Supple, Trachea Midline Cardiovascular: Yes: WNL, Regular Rate and Rhythm Respiratory: Yes: WNL, Regular, CTA Bilaterally Gastrointestinal: Yes: WNL, Normal Bowel Sounds ...Rectal Exam: Yes: Deferred Genitourinary: Yes: WNL Breast(s): Yes: WNL Musculoskeletal: Yes: WNL Extremities: Yes: Erythema (right LE) Edema: Yes Edema: LLE: Trace, RLE: Trace Peripheral Pulses WNL: Yes Peripheral Pulses: Left Radial: 2+, Right Radial: 2+, Left Doralis Pedis: 2+, Right Dorsalis Pedis: 2+, Left Femoral: 2+, Right Femoral: 2+ Integumentary: Yes: Other ( 1x1cm small dry eschar over the posterior mid calf removed with good underlying granulation tissue. Erythema to RLE. Area marked and appears less than previous) Wound/Incision: Yes: Other (1x1cm posterior mid calf eschar removed with good underlying granulation tissue. Skyler amt of serous draiange on sheet) Neurological: Yes: WNL, Alert, Oriented ...Motor Strength: WNL Psychiatric: Yes: WNL Labs: CBC, BMP 08/12/19 07:15 08/12/19 07:15 INR, PTT INR 1.60 (0.82-1.09) H 08/04/19 16:40 - ....Imaging Cat Scan: Report Reviewed (CT: diffuse subq edema consistent with cellulitis, no signs of abscess or osteo) Problem List - Problems (1) Diastolic heart failure Assessment/Plan: appears euvolemic holding dieresis secondary to JUDIT daily weights strict I/Os Code(s): I50.30 - UNSPECIFIED DIASTOLIC (CONGESTIVE) HEART FAILURE (2) A-fib Assessment/Plan: hostory of SR on recent EKG Code(s): I48.91 - UNSPECIFIED ATRIAL FIBRILLATION (3) Peripheral vascular disease Assessment/Plan: vascular following being treated for cellulitus monitor peripheral pulses c/w plavix,eliquis Code(s): I73.9 - PERIPHERAL VASCULAR DISEASE, UNSPECIFIED (4) Breast cancer, left breast Assessment/Plan: history of Code(s): C50.912 - MALIGNANT NEOPLASM OF UNSPECIFIED SITE OF LEFT FEMALE BREAST (5) Cellulitis of right lower extremity Assessment/Plan: 08/04 CT: diffuse subq edema consistent with cellulitis, no signs of abscess or osteo given vanco and zosyn initially abx changed to cefipime sceondary to JUDIT afebrile WBC 10.5 area marked-continue to follow improvement ID following seen by vascular, no surgical intervention compression stocking/dressing once cellulitis has resolved follow up with wound care clinic as outpatient Code(s): L03.115 - CELLULITIS OF RIGHT LOWER LIMB (6) CVA (cerebral vascular accident) Assessment/Plan: no residual weakness Code(s): I63.9 - CEREBRAL INFARCTION, UNSPECIFIED Qualifiers: CVA mechanism: unspecified Qualified Code(s): I63.9 - Cerebral infarction, unspecified (7) Coronary artery disease Assessment/Plan: c/w imdur/BB Code(s): I25.10 - ATHSCL HEART DISEASE OF [place] CORONARY ARTERY W/O ANG PCTRS (8) Diabetes mellitus type 2 with complications Assessment/Plan: BS well controlled BGM ac/hs with novolog sliding scale diabetic diet Code(s): E11.8 - TYPE 2 DIABETES MELLITUS WITH UNSPECIFIED COMPLICATIONS (9) HLD (hyperlipidemia) Assessment/Plan: diet controlled Code(s): E78.5 - HYPERLIPIDEMIA, UNSPECIFIED (10) HTN (hypertension) Assessment/Plan: normotensive c/w nifedipine, telmisartan, spironolactone(on hold) Code(s): I10 - ESSENTIAL (PRIMARY) HYPERTENSION (11) Prophylactic measure Assessment/Plan: FEN Fluids: adequate PO intake Electrolytes: monitor & replete as needed Nutrition: diabetic diet DVT moderate risk plavix/eliquis Dispo Maintain as inpatient full code discharge planning to home Code(s): Z29.9 - ENCOUNTER FOR PROPHYLACTIC MEASURES, UNSPECIFIED (12) JUDIT (acute kidney injury) Assessment/Plan: Cr 1.6 (1.9) renal following avoid nephrotoxic agents continue to hold aldactone/diovan strict I/Os Code(s): N17.9 - ACUTE KIDNEY FAILURE, UNSPECIFIED Visit type - Emergency Visit Emergency Visit: Yes ED Registration Date: 08/04/19 Care time: The patient presented to the Emergency Department on the above date and was hospitalized for further evaluation of their emergent condition. - New Patient This patient is new to me today: Yes Date on this admission: 08/13/19 - Critical Care Critical Care patient: No - Discharge Referral Referred to [facility] Med [facility] No
[2019-08-13 08:02] LABS: ALBUMIN 2.5 g/dl (3.4-5.0); BILIRUBIN,TOTAL 0.8 mg/dl (0.2-1); CALCIUM 8.1 mg/dl (8.5-10); CREATININE 1.6 mg/dl (0.55-1.3); MAGNESIUM 1.8 mg/dL (1.8-2.4); POTASSIUM 3.3 mmol/L (3.5-5.1); TOT PROT 5.5 g/dl (6.4-8.2)
[2019-08-13 08:12] LABS: BASO % 0.3 % (0-2.0); EOS % 2.2 % (0-4.5); HEMATOCRIT 36.7 % (32.4-45.2); HEMOGLOBIN 12.4 GM/dl (10.7-15.3); LYMPH % 14.2 % (8-40); MCH 31.5 pg (25.7-33.7); MCHC 33.6 g/dl (32.0-36.0); MEAN CELL VOLUME 93.6 fl (80-96); MEAN PLT VOLUME 9.6 fl (7.5-11.1); MONO % 7.2 % (3.8-10.2); NEUT % 76.1 % (42.8-82.8); PLATELET COUNT 278 K/MM3 (134-434); RBC 3.93 M/mm3 (3.60-5.2); RDW 12.1 % (11.6-15.6); WHITE BLOOD COUNT 10.5 K/mm3 (4.0-10.8)
[2019-08-13] MEDS ORDERED: POTASSIUM CHLORIDE TABS 20 MEQ TABLET.ER (FP) PO ONE (08:55)
[2019-08-13] MEDS ORDERED: MAGNESIUM OXIDE 400 MG TABLET (FP) PO ONE (08:55)
[2019-08-13] MEDS: APIXABAN 5 MG TABLET PO SCH ×2 (09:58→22:04)
[2019-08-13] MEDS: metoPROLOL SUCCINATE 25 MG TAB.SR.24H (FP) PO SCH (09:58)
[2019-08-13] MEDS: CEFEPIME HCL/D5W 1 GM/50 ML BAG IVPB SCH ×2 (09:59→22:04)
[2019-08-13] MEDS: CLOPIDOGREL BISULFATE 75 MG TABLET (FP) PO SCH (09:59)
[2019-08-13] MEDS: ISOSORBIDE MONONITRATE 30 MG TAB.SR.24H (FP) PO SCH (09:59)
[2019-08-13] MEDS: COLLAGENASE CLOSTRIDIUM HIST. 30 GRAMS TUBE TP SCH (10:00)
[2019-08-13] MEDS: NIFEdipine E.R 60 MG TABLET PO SCH ×2 (10:00→22:04)
--- NOTE | 2019-08-13 14:31 | PN ---
Progress Note, Physician History of Present Illness: Pt seen and examined at bedside. She is awake and alert. She feels that her leg is a little better. She denies fevers or chills. - Current Medication List Current Medications: Active Medications Acetaminophen (Tylenol -) 650 mg PO Q6H PRN PRN Reason: PAIN LEVEL 1-5 Last Admin: 08/05/19 18:36 Dose: 650 mg Apixaban (Eliquis -) 5 mg PO BID [facility] Last Admin: 08/13/19 09:58 Dose: 5 mg Clopidogrel Bisulfate (Plavix -) 75 mg PO DAILY [facility] Last Admin: 08/13/19 09:59 Dose: 75 mg Collagenase (Santyl -) 1 applic TP DAILY [facility]; Protocol Cefepime HCl (Maxipime 1 Gm Premix Ivpb) 1 gm in 50 mls @ 100 mls/hr IVPB BID [facility]; Protocol Last Admin: 08/13/19 09:59 Dose: 100 mls/hr Clindamycin Phosphate (Cleocin 600 Mg Premix Ivpb -) 600 mg in 50 mls @ 100 mls /hr IVPB Q8H-IV [facility]; Protocol Last Admin: 08/13/19 09:59 Dose: 100 mls/hr Insulin Aspart (Novolog Vial Sliding Scale -) 1 vial SQ ACHS [facility]; Protocol Last Admin: 08/13/19 06:36 Dose: Not Given Isosorbide Mononitrate (Imdur -) 30 mg PO DAILY [facility] Last Admin: 08/13/19 09:59 Dose: 30 mg Metoprolol Succinate (Toprol Xl -) 25 mg PO DAILY [facility] Last Admin: 08/13/19 09:58 Dose: 25 mg Nifedipine (Procardia Xl -) 60 mg PO BID [facility] Last Admin: 08/12/19 21:21 Dose: 60 mg Non-Formulary Medication (Lubiprostone [Amitiza]) 8 mcg PO BID [facility] Spironolactone (Aldactone -) 50 mg PO DAILY [facility] Last Admin: 08/08/19 10:07 Dose: 50 mg Valsartan (Diovan -) 320 mg PO DAILY [facility] Last Admin: 08/08/19 10:03 Dose: 320 mg - Objective Vital Signs: Vital Signs Temperature 98.1 F 08/13/19 14:00 Pulse Rate 72 08/13/19 14:00 Respiratory Rate 18 08/13/19 14:00 Blood Pressure 134/51 L 08/13/19 14:00 O2 Sat by Pulse Oximetry (%) 99 08/13/19 14:00 Constitutional: Yes: Calm Eyes: Yes: Conjunctiva Clear HENT: Yes: Atraumatic Neck: Yes: Supple Cardiovascular: Yes: S1, S2 Respiratory: Yes: CTA Bilaterally Gastrointestinal: Yes: Soft Genitourinary: Yes: WNL Musculoskeletal: Yes: WNL Edema: Yes Edema: RLE: Trace Integumentary: Yes: Erythema Wound/Incision: Yes: Dressing Dry and Intact Neurological: Yes: Oriented Psychiatric: Yes: Oriented Labs: CBC, BMP 08/13/19 07:08 08/13/19 07:08 INR, PTT INR 1.60 (0.82-1.09) H 08/04/19 16:40 Problem List - Problems (1) JUDIT (acute kidney injury) Code(s): N17.9 - ACUTE KIDNEY FAILURE, UNSPECIFIED (2) Cellulitis of right lower extremity Code(s): L03.115 - CELLULITIS OF RIGHT LOWER LIMB Assessment/Plan Current Medications Generic Name Dose Route Start Last Admin Trade Name Freq PRN Reason Stop Dose Admin Acetaminophen 650 mg 08/04/19 20:16 08/05/19 18:36 Tylenol - PO 650 mg Q6H PRN Administration PAIN LEVEL 1-5 Apixaban 5 mg 08/05/19 15:56 08/13/19 09:58 Eliquis - PO 5 mg BID [facility] Administration Clopidogrel Bisulfate 75 mg 08/05/19 16:00 08/13/19 09:59 Plavix - PO 75 mg DAILY [facility] Administration Collagenase 1 applic 08/12/19 16:45 Santyl - TP DAILY [facility] Protocol Cefepime HCl 1 gm in 50 mls @ 100 mls/hr 08/10/19 22:00 08/13/19 09:59 Maxipime 1 Gm Premix Ivpb IVPB 100 mls/hr BID [facility] Administration Protocol Clindamycin Phosphate 600 mg in 50 mls @ 100 mls/hr 08/10/19 15:30 08/13/19 09:59 Cleocin 600 Mg Premix Ivpb - IVPB 100 mls/hr Q8H-IV [facility] Administration Protocol Insulin Aspart 1 vial 08/04/19 22:00 02/20/20 06:36 Novolog Vial Sliding Scale - SQ Not Given ACHS [facility] Protocol Isosorbide Mononitrate 30 mg 08/05/19 16:00 08/13/19 09:59 Imdur - PO 30 mg DAILY [facility] Administration Metoprolol Succinate 25 mg 08/05/19 16:00 08/13/19 09:58 Toprol Xl - PO 25 mg DAILY [facility] Administration Nifedipine 60 mg 08/05/19 15:57 08/12/19 21:21 Procardia Xl - PO 60 mg BID [facility] Administration Non-Formulary Medication 8 mcg 08/05/19 22:00 Lubiprostone [Amitiza] PO BID [facility] Spironolactone 50 mg 08/05/19 16:00 08/08/19 10:07 Aldactone - PO 50 mg DAILY [facility] Administration Valsartan 320 mg 08/05/19 16:00 08/08/19 10:03 Diovan - PO 320 mg DAILY [facility] Administration Impression 1. JUDIT 2. hematuria 3. a-fib 4. cellulitis 5. DM 6. h/o renal cyst PLAN - renal function is starting to improve - repeat labs in am - keep diuretics on hold - valdartan on hold for now - cont wound care - discussed with medical team
[2019-08-14] MEDS: CLINDAMYCIN 600MG PREMIX IVPB 600 MG/50 ML BAG IVPB SCH ×3 (03:10→18:22)
[2019-08-14] MEDS: INSULIN SLIDING SCALE (NOVOLOG) 1 VIAL SQ SCH ×4 (06:38→21:58)
[2019-08-14 07:51] LABS: ALBUMIN 2.7 g/dl (3.4-5.0); CALCIUM 8.4 mg/dl (8.5-10); CREATININE 1.5 mg/dl (0.55-1.3); MAGNESIUM 1.8 mg/dL (1.8-2.4); POTASSIUM 3.6 mmol/L (3.5-5.1); TOT PROT 5.8 g/dl (6.4-8.2)
[2019-08-14 07:56] LABS: RBC 4.07 M/mm3 (3.60-5.2)
[2019-08-14 08:09] LABS: BASO % 0.3 % (0-2.0); EOS % 2.4 % (0-4.5); HEMATOCRIT 37.9 % (32.4-45.2); HEMOGLOBIN 12.9 GM/dl (10.7-15.3); LYMPH % 15.1 % (8-40); MCH 31.7 pg (25.7-33.7); MCHC 34.1 g/dl (32.0-36.0); MEAN CELL VOLUME 93.1 fl (80-96); MEAN PLT VOLUME 9.9 fl (7.5-11.1); MONO % 7.1 % (3.8-10.2); NEUT % 75.1 % (42.8-82.8); PLATELET COUNT 317 K/MM3 (134-434); RDW 11.9 % (11.6-15.6); WHITE BLOOD COUNT 9.8 K/mm3 (4.0-10.8)
[2019-08-14] MEDS: CEFEPIME HCL/D5W 1 GM/50 ML BAG IVPB SCH ×2 (09:00→21:59)
[2019-08-14] MEDS: ISOSORBIDE MONONITRATE 30 MG TAB.SR.24H (FP) PO SCH (10:05)
[2019-08-14] MEDS: CLOPIDOGREL BISULFATE 75 MG TABLET (FP) PO SCH (10:18)
[2019-08-14] MEDS: APIXABAN 5 MG TABLET PO SCH ×2 (10:18→21:59)
[2019-08-14] MEDS: NIFEdipine E.R 60 MG TABLET PO SCH ×2 (10:19→21:59)
[2019-08-14] MEDS: metoPROLOL SUCCINATE 25 MG TAB.SR.24H (FP) PO SCH (10:19)
[2019-08-14] MEDS: COLLAGENASE CLOSTRIDIUM HIST. 30 GRAMS TUBE TP SCH (10:50)
--- NOTE | 2019-08-14 12:42 | PN ---
Progress Note, Physician History of Present Illness: stable improving - Current Medication List Current Medications: Active Medications Acetaminophen (Tylenol -) 650 mg PO Q6H PRN PRN Reason: PAIN LEVEL 1-5 Last Admin: 08/05/19 18:36 Dose: 650 mg Apixaban (Eliquis -) 5 mg PO BID [facility] Last Admin: 08/14/19 10:18 Dose: 5 mg Clopidogrel Bisulfate (Plavix -) 75 mg PO DAILY [facility] Last Admin: 08/14/19 10:18 Dose: 75 mg Collagenase (Santyl -) 1 applic TP DAILY [facility]; Protocol Last Admin: 08/14/19 10:50 Dose: 1 applic Cefepime HCl (Maxipime 1 Gm Premix Ivpb) 1 gm in 50 mls @ 100 mls/hr IVPB BID [facility]; Protocol Last Admin: 08/14/19 09:00 Dose: 100 mls/hr Clindamycin Phosphate (Cleocin 600 Mg Premix Ivpb -) 600 mg in 50 mls @ 100 mls /hr IVPB Q8H-IV [facility]; Protocol Last Admin: 08/14/19 10:00 Dose: 100 mls/hr Insulin Aspart (Novolog Vial Sliding Scale -) 1 vial SQ ACHS [facility]; Protocol Last Admin: 08/14/19 06:38 Dose: 2 unit Isosorbide Mononitrate (Imdur -) 30 mg PO DAILY [facility] Last Admin: 08/14/19 10:05 Dose: 30 mg Metoprolol Succinate (Toprol Xl -) 25 mg PO DAILY [facility] Last Admin: 08/14/19 10:19 Dose: 25 mg Nifedipine (Procardia Xl -) 60 mg PO BID [facility] Last Admin: 08/14/19 10:19 Dose: 60 mg Non-Formulary Medication (Lubiprostone [Amitiza]) 8 mcg PO BID [facility] Spironolactone (Aldactone -) 50 mg PO DAILY [facility] Last Admin: 08/08/19 10:07 Dose: 50 mg Valsartan (Diovan -) 320 mg PO DAILY [facility] Last Admin: 08/08/19 10:03 Dose: 320 mg - Objective Vital Signs: Vital Signs Temperature 98.6 F 08/14/19 06:00 Pulse Rate 77 08/14/19 06:00 Respiratory Rate 16 08/14/19 09:14 Blood Pressure 148/61 08/14/19 06:00 O2 Sat by Pulse Oximetry (%) 99 08/14/19 09:14 Constitutional: Yes: No Distress, Calm Cardiovascular: Yes: S1, S2 Respiratory: Yes: Regular, CTA Bilaterally Gastrointestinal: Yes: Normal Bowel Sounds, Soft Musculoskeletal: Yes: WNL Extremities: Yes: Erythema, Other Wound/Incision: Yes: Dressing Dry and Intact Neurological: Yes: Alert, Oriented Psychiatric: Yes: Alert, Oriented Labs: CBC, BMP 08/14/19 07:00 08/14/19 07:00 INR, PTT INR 1.60 (0.82-1.09) H 08/04/19 16:40 Assessment/Plan 78 year-old female with a PMH significant for HTN, HLD, CAD s/p [place] s/p stent, CVA x 2 (2008, 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 Admitted for RLE cellulitis. Right lower extremity cellulitis Hypertension Hyperlipidemia Coronary artery disease CVAs Atrial fibrillation Diastolic heart failure asthma Type II IDDM Left breast cancer plan vascular note noted procedure noted continue abx wound care rest as per the team
--- NOTE | 2019-08-14 12:44 | PN ---
Progress Note, Physician History of Present Illness: stable leg still swollen and tender improving - Current Medication List Current Medications: Active Medications Acetaminophen (Tylenol -) 650 mg PO Q6H PRN PRN Reason: PAIN LEVEL 1-5 Last Admin: 08/05/19 18:36 Dose: 650 mg Apixaban (Eliquis -) 5 mg PO BID [facility] Last Admin: 08/14/19 10:18 Dose: 5 mg Clopidogrel Bisulfate (Plavix -) 75 mg PO DAILY [facility] Last Admin: 08/14/19 10:18 Dose: 75 mg Collagenase (Santyl -) 1 applic TP DAILY [facility]; Protocol Last Admin: 08/14/19 10:50 Dose: 1 applic Cefepime HCl (Maxipime 1 Gm Premix Ivpb) 1 gm in 50 mls @ 100 mls/hr IVPB BID [facility]; Protocol Last Admin: 08/14/19 09:00 Dose: 100 mls/hr Clindamycin Phosphate (Cleocin 600 Mg Premix Ivpb -) 600 mg in 50 mls @ 100 mls /hr IVPB Q8H-IV [facility]; Protocol Last Admin: 08/14/19 10:00 Dose: 100 mls/hr Insulin Aspart (Novolog Vial Sliding Scale -) 1 vial SQ ACHS [facility]; Protocol Last Admin: 08/14/19 06:38 Dose: 2 unit Isosorbide Mononitrate (Imdur -) 30 mg PO DAILY [facility] Last Admin: 08/14/19 10:05 Dose: 30 mg Metoprolol Succinate (Toprol Xl -) 25 mg PO DAILY [facility] Last Admin: 08/14/19 10:19 Dose: 25 mg Nifedipine (Procardia Xl -) 60 mg PO BID [facility] Last Admin: 08/14/19 10:19 Dose: 60 mg Non-Formulary Medication (Lubiprostone [Amitiza]) 8 mcg PO BID [facility] Spironolactone (Aldactone -) 50 mg PO DAILY [facility] Last Admin: 08/08/19 10:07 Dose: 50 mg Valsartan (Diovan -) 320 mg PO DAILY [facility] Last Admin: 08/08/19 10:03 Dose: 320 mg - Objective Vital Signs: Vital Signs Temperature 98.6 F 08/14/19 06:00 Pulse Rate 77 08/14/19 06:00 Respiratory Rate 16 08/14/19 09:14 Blood Pressure 148/61 08/14/19 06:00 O2 Sat by Pulse Oximetry (%) 99 08/14/19 09:14 Constitutional: Yes: No Distress, Calm Cardiovascular: Yes: S1, S2 Respiratory: Yes: Regular, CTA Bilaterally Gastrointestinal: Yes: Normal Bowel Sounds, Soft Musculoskeletal: Yes: WNL Extremities: Yes: Erythema (improving), Other Wound/Incision: Yes: Dressing Dry and Intact Neurological: Yes: Alert, Oriented Psychiatric: Yes: Alert, Oriented Labs: CBC, BMP 08/14/19 07:00 08/14/19 07:00 INR, PTT INR 1.60 (0.82-1.09) H 08/04/19 16:40 Assessment/Plan 78 year-old female with a PMH significant for HTN, HLD, CAD s/p [place] s/p stent, CVA x 2 (2008, 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 Admitted for RLE cellulitis. Right lower extremity cellulitis Hypertension Hyperlipidemia Coronary artery disease CVAs Atrial fibrillation Diastolic heart failure asthma Type II IDDM Left breast cancer plan will need couple of days of iv abx before switching to oral wound care cr trending down rest as per the team
--- NOTE | 2019-08-14 16:01 | PN ---
Progress Note, Physician History of Present Illness: Pt seen and examined at bedside. He feels that her leg is getting better. - Current Medication List Current Medications: Active Medications Acetaminophen (Tylenol -) 650 mg PO Q6H PRN PRN Reason: PAIN LEVEL 1-5 Last Admin: 08/05/19 18:36 Dose: 650 mg Apixaban (Eliquis -) 5 mg PO BID [facility] Last Admin: 08/14/19 10:18 Dose: 5 mg Clopidogrel Bisulfate (Plavix -) 75 mg PO DAILY [facility] Last Admin: 08/14/19 10:18 Dose: 75 mg Collagenase (Santyl -) 1 applic TP DAILY [facility]; Protocol Last Admin: 08/14/19 10:50 Dose: 1 applic Cefepime HCl (Maxipime 1 Gm Premix Ivpb) 1 gm in 50 mls @ 100 mls/hr IVPB BID [facility]; Protocol Last Admin: 08/14/19 09:00 Dose: 100 mls/hr Clindamycin Phosphate (Cleocin 600 Mg Premix Ivpb -) 600 mg in 50 mls @ 100 mls /hr IVPB Q8H-IV [facility]; Protocol Last Admin: 08/14/19 10:00 Dose: 100 mls/hr Insulin Aspart (Novolog Vial Sliding Scale -) 1 vial SQ ACHS [facility]; Protocol Last Admin: 08/14/19 06:38 Dose: 2 unit Isosorbide Mononitrate (Imdur -) 30 mg PO DAILY [facility] Last Admin: 08/14/19 10:05 Dose: 30 mg Metoprolol Succinate (Toprol Xl -) 25 mg PO DAILY [facility] Last Admin: 08/14/19 10:19 Dose: 25 mg Nifedipine (Procardia Xl -) 60 mg PO BID [facility] Last Admin: 08/14/19 10:19 Dose: 60 mg Non-Formulary Medication (Lubiprostone [Amitiza]) 8 mcg PO BID [facility] Spironolactone (Aldactone -) 50 mg PO DAILY [facility] Last Admin: 08/08/19 10:07 Dose: 50 mg Valsartan (Diovan -) 320 mg PO DAILY [facility] Last Admin: 08/08/19 10:03 Dose: 320 mg - Objective Vital Signs: Vital Signs Temperature 98.8 F 08/14/19 14:00 Pulse Rate 66 08/14/19 14:00 Respiratory Rate 20 08/14/19 14:00 Blood Pressure 139/52 L 08/14/19 14:00 O2 Sat by Pulse Oximetry (%) 97 08/14/19 14:00 Constitutional: Yes: Calm Eyes: Yes: Conjunctiva Clear HENT: Yes: Atraumatic Cardiovascular: Yes: S1, S2 Respiratory: Yes: CTA Bilaterally Gastrointestinal: Yes: Soft Genitourinary: Yes: WNL Musculoskeletal: Yes: WNL Edema: RLE: Trace Neurological: Yes: Oriented Psychiatric: Yes: Oriented Labs: CBC, BMP 08/14/19 07:00 08/14/19 07:00 INR, PTT INR 1.60 (0.82-1.09) H 08/04/19 16:40 Problem List - Problems (1) JUDIT (acute kidney injury) Code(s): N17.9 - ACUTE KIDNEY FAILURE, UNSPECIFIED (2) Cellulitis of right lower extremity Code(s): L03.115 - CELLULITIS OF RIGHT LOWER LIMB Assessment/Plan Current Medications Generic Name Dose Route Start Last Admin Trade Name Freq PRN Reason Stop Dose Admin Acetaminophen 650 mg 08/04/19 20:16 08/05/19 18:36 Tylenol - PO 650 mg Q6H PRN Administration PAIN LEVEL 1-5 Apixaban 5 mg 08/05/19 15:56 08/14/19 10:18 Eliquis - PO 5 mg BID [facility] Administration Clopidogrel Bisulfate 75 mg 08/05/19 16:00 08/14/19 10:18 Plavix - PO 75 mg DAILY [facility] Administration Collagenase 1 applic 08/12/19 16:45 08/14/19 10:50 Santyl - TP 1 applic DAILY [facility] Administration Protocol Cefepime HCl 1 gm in 50 mls @ 100 mls/hr 08/10/19 22:00 08/14/19 09:00 Maxipime 1 Gm Premix Ivpb IVPB 100 mls/hr BID [facility] Administration Protocol Clindamycin Phosphate 600 mg in 50 mls @ 100 mls/hr 08/10/19 15:30 08/14/19 10:00 Cleocin 600 Mg Premix Ivpb - IVPB 100 mls/hr Q8H-IV [facility] Administration Protocol Insulin Aspart 1 vial 08/04/19 22:00 08/14/19 06:38 Novolog Vial Sliding Scale - SQ 2 unit ACHS [facility] Administration Protocol Isosorbide Mononitrate 30 mg 08/05/19 16:00 08/14/19 10:05 Imdur - PO 30 mg DAILY [facility] Administration Metoprolol Succinate 25 mg 08/05/19 16:00 08/14/19 10:19 Toprol Xl - PO 25 mg DAILY [facility] Administration Nifedipine 60 mg 08/05/19 15:57 08/14/19 10:19 Procardia Xl - PO 60 mg BID [facility] Administration Non-Formulary Medication 8 mcg 08/05/19 22:00 Lubiprostone [Amitiza] PO BID [facility] Spironolactone 50 mg 08/05/19 16:00 08/08/19 10:07 Aldactone - PO 50 mg DAILY [facility] Administration Valsartan 320 mg 08/05/19 16:00 08/08/19 10:03 Diovan - PO 320 mg DAILY [facility] Administration Impression 1. JUDIT 2. hematuria 3. a-fib 4. cellulitis 5. DM 6. 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
--- NOTE | 2019-08-14 18:57 | PN ---
Physical Exam: Subjective: Patient seen and examined at bedside. Feels better, improved RLE pain and warmth, no fevers/chills, clinically improving. Objective: Constitutional: Yes: No Distress, Calm HENT: Yes: Atraumatic Neck: Yes: Supple Cardiovascular: Yes: Pulse Irregular, S1, S2 Respiratory: Yes: WNL, Regular, CTA Bilaterally Gastrointestinal: Yes: Normal Bowel Sounds, Soft Extremities: Yes: minimal erythema RLE, wound dressing+, no swelling, no calf tenderness, moves all 4 ext. Neurological: Yes: Alert, Oriented Vital Signs - 24 hr 08/13/19 08/14/19 08/14/19 22:00 01:45 06:00 Temperature 99.4 F 98.4 F 98.6 F Pulse Rate 69 72 77 Respiratory 18 18 16 Rate Blood Pressure 140/58 L 157/54 L 148/61 O2 Sat by Pulse 95 96 Oximetry (%) 08/14/19 08/14/19 08/14/19 07:02 09:14 10:00 Temperature 97.7 F Pulse Rate 64 Respiratory 16 19 Rate Blood Pressure 144/58 L O2 Sat by Pulse 99 99 98 Oximetry (%) 08/14/19 14:00 Temperature 98.8 F Pulse Rate 66 Respiratory 20 Rate Blood Pressure 139/52 L O2 Sat by Pulse 97 Oximetry (%) Laboratory Results - last 24 hr 08/13/19 08/14/19 08/14/19 22:03 06:11 07:00 WBC 9.8 RBC 4.07 Hgb 12.9 Hct 37.9 MCV 93.1 MCH 31.7 MCHC 34.1 RDW 11.9 Plt Count 317 MPV 9.9 Absolute Neuts (auto) 7.4 Neutrophils % 75.1 Lymphocytes % 15.1 Monocytes % 7.1 Eosinophils % 2.4 Basophils % 0.3 Sodium Potassium Chloride Carbon Dioxide Anion Gap BUN Creatinine Est GFR (CKD-EPI)AfAm Est GFR (CKD-EPI)NonAf POC Glucometer 122 153 Random Glucose Calcium Magnesium Total Bilirubin AST ALT Alkaline Phosphatase Total Protein Albumin 08/14/19 07:00 WBC RBC Hgb Hct MCV MCH MCHC RDW Plt Count MPV Absolute Neuts (auto) Neutrophils % Lymphocytes % Monocytes % Eosinophils % Basophils % Sodium 136 Potassium 3.6 Chloride 104 Carbon Dioxide 24 Anion Gap 8 BUN 21.0 H Creatinine 1.5 H Est GFR (CKD-EPI)AfAm 38.55 Est GFR (CKD-EPI)NonAf 33.26 POC Glucometer Random Glucose 151 H Calcium 8.4 L Magnesium 1.8 Total Bilirubin 1.0 AST 15 ALT 18 Alkaline Phosphatase 47 Total Protein 5.8 L Albumin 2.7 L Home Medications Medication Instructions Recorded Apixaban [Eliquis] 5 mg PO BID 08/04/19 Clopidogrel Bisulfate [Plavix] 75 mg PO DAILY 08/04/19 Empagliflozin [Jardiance] 1 tab PO DAILY 08/04/19 Insulin Lispro Protamin/Lispro 10 units SQ ASDIR 08/04/19 [Humalog Mix 75-25 Vial] Isosorbide Dinitrate [Isordil] 30 mg PO DAILY 08/04/19 Lubiprostone [Amitiza] 8 mcg PO BID 08/04/19 Metoprolol Succinate [Toprol Xl] 25 mg PO DAILY 08/04/19 Nifedipine [Nifedipine ER] 60 mg PO BID 08/04/19 Sitagliptin Phos/Metformin HCl 1 each PO BID 08/04/19 [Janumet 50-500 mg Tablet] Spironolactone 50 mg PO DAILY 08/04/19 Telmisartan 80 mg PO DAILY 08/04/19 Zolpidem Tartrate [Ambien] 5 mg PO PRN 08/04/19 Acetaminophen [Tylenol .Regular 650 mg PO Q6H PRN tablet 08/13/19 Strength -] Collagenase Clostridium Hist. 1 applic TP DAILY #1 tube 08/13/19 [Santyl -] Insulin Sliding Scale [Novolog 1 vial SQ ACHS units 08/13/19 Vial Sliding Scale -] Current Medications Generic Name Dose Route Start Last Admin Trade Name Freq PRN Reason Stop Dose Admin Acetaminophen 650 mg 08/04/19 20:16 08/05/19 18:36 Tylenol - PO 650 mg Q6H PRN Administration PAIN LEVEL 1-5 Apixaban 5 mg 08/05/19 15:56 08/14/19 10:18 Eliquis - PO 5 mg BID THOMAS Administration Clopidogrel Bisulfate 75 mg 08/05/19 16:00 08/14/19 10:18 Plavix - PO 75 mg DAILY THOMAS Administration Collagenase 1 applic 08/12/19 16:45 08/14/19 10:50 Santyl - TP 1 applic DAILY THOMAS Administration Protocol Cefepime HCl 1 gm in 50 mls @ 100 mls/hr 08/10/19 22:00 08/14/19 09:00 Maxipime 1 Gm Premix Ivpb IVPB 100 mls/hr BID THOMAS Administration Protocol Clindamycin Phosphate 600 mg in 50 mls @ 100 mls/hr 08/10/19 15:30 08/14/19 18:22 Cleocin 600 Mg Premix Ivpb - IVPB 100 mls/hr Q8H-IV THOMAS Administration Protocol Insulin Aspart 1 vial 08/04/19 22:00 08/14/19 16:23 Novolog Vial Sliding Scale - SQ Not Given ACHS THOMAS Protocol Isosorbide Mononitrate 30 mg 08/05/19 16:00 08/14/19 10:05 Imdur - PO 30 mg DAILY THOMAS Administration Metoprolol Succinate 25 mg 08/05/19 16:00 08/14/19 10:19 Toprol Xl - PO 25 mg DAILY THOMAS Administration Nifedipine 60 mg 08/05/19 15:57 08/14/19 10:19 Procardia Xl - PO 60 mg BID THOMAS Administration Non-Formulary Medication 8 mcg 08/05/19 22:00 Lubiprostone [Amitiza] PO BID THOMAS Spironolactone 50 mg 08/05/19 16:00 08/08/19 10:07 Aldactone - PO 50 mg DAILY THOMAS Administration Valsartan 320 mg 08/05/19 16:00 08/08/19 10:03 Diovan - PO 320 mg DAILY THOMAS Administration A/P: 78 F h/o HTN, HLD, CAD s/p [place] s/p stent, CVA x 2 (2008, 12/2018), atrial fibrillation on Eliquis, diastolic heart failure, asthma, Type II IDDM, PVD, and left breast cancer. Admitted for RLE cellulitis. Right lower extremity cellulitis as per ID recs, recommending 4-5 more days if IV cefepime, will need PICC and SNF placement to complete cefepime course, cont. Clindamycin (may be IV or PO) Afebrile blood cultures negative to date no leukocytosis at this time ID consult: Dr Goodson Hypertension BP controlled cont. BP meds Coronary artery disease continue isosorbide mononitrate Metoprolol XL continue plavix continue procardia Diastolic heart failure/Peripheral vascular disease clinically euvolemic continue ToprolXL, valsartan, spironolactone history of CVAs continue Plavix Atrial fibrillation Rate is controlled with Toprol XL continue eliquis Asthma not in exacerbation Type II IDDM continue ISS, basal insulin DM diet Left breast cancer can follow up as outpatient DVT prophylaxis: on Eliquis Physical therapy Visit type - Emergency Visit Emergency Visit: Yes ED Registration Date: 08/04/19 Care time: The patient presented to the Emergency Department on the above date and was hospitalized for further evaluation of their emergent condition. - New Patient This patient is new to me today: Yes Date on this admission: 08/14/19 - Critical Care Critical Care patient: No - Discharge Referral Referred to [facility] Med P.C.: No
[2019-08-15] MEDS: CLINDAMYCIN 600MG PREMIX IVPB 600 MG/50 ML BAG IVPB SCH ×3 (03:07→18:22)
[2019-08-15] MEDS: INSULIN SLIDING SCALE (NOVOLOG) 1 VIAL SQ SCH ×3 (06:28→23:19)
--- NOTE | 2019-08-15 08:12 | PN ---
Progress Note, Physician Chief Complaint: No new complaints awaiting completion of abx. History of Present Illness: 78 F h/o HTN, HLD, CAD s/p [place] s/p stent, CVA x 2 (2008, 12/2018), atrial fibrillation on Eliquis, diastolic heart failure, asthma, Type II IDDM, PVD, and left breast cancer. Admitted for RLE cellulitis., as per ID recs, recommending 4-5 more days if IV cefepime, - Current Medication List Current Medications: Active Medications Acetaminophen (Tylenol -) 650 mg PO Q6H PRN PRN Reason: PAIN LEVEL 1-5 Last Admin: 08/05/19 18:36 Dose: 650 mg Apixaban (Eliquis -) 5 mg PO BID [facility] Last Admin: 08/14/19 21:59 Dose: 5 mg Clopidogrel Bisulfate (Plavix -) 75 mg PO DAILY [facility] Last Admin: 08/14/19 10:18 Dose: 75 mg Collagenase (Santyl -) 1 applic TP DAILY [facility]; Protocol Last Admin: 08/14/19 10:50 Dose: 1 applic Cefepime HCl (Maxipime 1 Gm Premix Ivpb) 1 gm in 50 mls @ 100 mls/hr IVPB BID [facility]; Protocol Last Admin: 08/14/19 21:59 Dose: 100 mls/hr Clindamycin Phosphate (Cleocin 600 Mg Premix Ivpb -) 600 mg in 50 mls @ 100 mls /hr IVPB Q8H-IV [facility]; Protocol Last Admin: 08/15/19 03:07 Dose: 100 mls/hr Insulin Aspart (Novolog Vial Sliding Scale -) 1 vial SQ ACHS [facility]; Protocol Last Admin: 08/15/19 06:28 Dose: 2 unit Isosorbide Mononitrate (Imdur -) 30 mg PO DAILY [facility] Last Admin: 08/14/19 10:05 Dose: 30 mg Metoprolol Succinate (Toprol Xl -) 25 mg PO DAILY [facility] Last Admin: 08/14/19 10:19 Dose: 25 mg Nifedipine (Procardia Xl -) 60 mg PO BID [facility] Last Admin: 08/14/19 21:59 Dose: 60 mg Non-Formulary Medication (Lubiprostone [Amitiza]) 8 mcg PO BID [facility] Spironolactone (Aldactone -) 50 mg PO DAILY [facility] Last Admin: 08/08/19 10:07 Dose: 50 mg Valsartan (Diovan -) 320 mg PO DAILY [facility] Last Admin: 08/08/19 10:03 Dose: 320 mg - Objective Vital Signs: Vital Signs Temperature 97.6 F 08/15/19 06:00 Pulse Rate 72 08/15/19 06:00 Respiratory Rate 18 08/15/19 06:00 Blood Pressure 141/53 L 08/15/19 06:00 O2 Sat by Pulse Oximetry (%) 96 08/15/19 06:00 General: Elderly woman, comfortable, not in distress HEENT; mucous membranes moist, no anemia, no jaundice, PERRLA, no nystagmus Neck: No JVD, supple, no bruit, thyroid palpably normal, normal carotid pulsations. Chest: Nontender, clear to auscultation bilaterally CVS: S1-S2 regular no murmur/gallop/rub Abdomen: Nondistended, soft, bowel sounds present. Extremities: Right lower extremity improving cellulitis , trace edema., No cough tenderness, pulses present [employer]ER: AO X3 , no gross motor sensory deficit Labs: CBC, BMP 08/14/19 07:00 08/14/19 07:00 INR, PTT INR 1.60 (0.82-1.09) H 08/04/19 16:40 Problem List - Problems (1) Cellulitis of right lower extremity Assessment/Plan: On IV clindamycin and cefepime, improving ID will switch to p.o. antibiotic on Saturday. Problems reviewed: Yes Code(s): L03.115 - CELLULITIS OF RIGHT LOWER LIMB (2) A-fib Assessment/Plan: Rate controlled on anticoagulation, continue apixaban 5 mg and metoprolol 25 mg daily Problems reviewed: Yes Code(s): I48.91 - UNSPECIFIED ATRIAL FIBRILLATION (3) JUDIT (acute kidney injury) Assessment/Plan: Stable renal function follow-up BMP Problems reviewed: Yes Code(s): N17.9 - ACUTE KIDNEY FAILURE, UNSPECIFIED (4) Diastolic heart failure Assessment/Plan: Compensated continue current management Problems reviewed: Yes Code(s): I50.30 - UNSPECIFIED DIASTOLIC (CONGESTIVE) HEART FAILURE (5) Diabetes mellitus type 2 with complications Assessment/Plan: Continue correction dose insulin. Problems reviewed: Yes Code(s): E11.8 - TYPE 2 DIABETES MELLITUS WITH UNSPECIFIED COMPLICATIONS (6) Peripheral vascular disease Code(s): I73.9 - PERIPHERAL VASCULAR DISEASE, UNSPECIFIED (7) Coronary artery disease Code(s): I25.10 - ATHSCL HEART DISEASE OF [place] CORONARY ARTERY W/O ANG PCTRS
[2019-08-15 08:43] LABS: BASO % 0.4 % (0-2.0); HEMATOCRIT 39.4 % (32.4-45.2); LYMPH % 15.4 % (8-40); MCH 30.8 pg (25.7-33.7); MCHC 32.9 g/dl (32.0-36.0); MEAN CELL VOLUME 93.6 fl (80-96); MEAN PLT VOLUME 10.1 fl (7.5-11.1); MONO % 8.2 % (3.8-10.2); PLATELET COUNT 360 K/MM3 (134-434); RBC 4.21 M/mm3 (3.60-5.2); RDW 11.9 % (11.6-15.6)
[2019-08-15 08:58] LABS: ALBUMIN 2.8 g/dl (3.4-5.0); BILIRUBIN,TOTAL 0.8 mg/dl (0.2-1); CALCIUM 8.8 mg/dl (8.5-10); CREATININE 1.4 mg/dl (0.55-1.3); MAGNESIUM 1.8 mg/dL (1.8-2.4); POTASSIUM 3.5 mmol/L (3.5-5.1); TOT PROT 6.1 g/dl (6.4-8.2)
[2019-08-15] MEDS: COLLAGENASE CLOSTRIDIUM HIST. 30 GRAMS TUBE TP SCH (10:25)
[2019-08-15] MEDS: SPIRONOLACTONE 25 MG TABLET (FP) PO SCH (10:25)
[2019-08-15] MEDS: VALSARTAN 160 MG TABLET (UD) PO SCH (10:26)
[2019-08-15] MEDS: CEFEPIME HCL/D5W 1 GM/50 ML BAG IVPB SCH ×2 (10:26→21:50)
[2019-08-15] MEDS: APIXABAN 5 MG TABLET PO SCH ×2 (10:26→21:50)
[2019-08-15] MEDS: ISOSORBIDE MONONITRATE 30 MG TAB.SR.24H (FP) PO SCH (10:26)
[2019-08-15] MEDS: metoPROLOL SUCCINATE 25 MG TAB.SR.24H (FP) PO SCH (10:27)
[2019-08-15] MEDS: NIFEdipine E.R 60 MG TABLET PO SCH ×2 (10:27→23:20)
[2019-08-15] MEDS: CLOPIDOGREL BISULFATE 75 MG TABLET (FP) PO SCH (10:27)
--- NOTE | 2019-08-15 13:46 | PN ---
Progress Note, Physician History of Present Illness: Pt states RLE pain is less. Remains afebrile. Renal function improving. - Current Medication List Current Medications: Active Medications Acetaminophen (Tylenol -) 650 mg PO Q6H PRN PRN Reason: PAIN LEVEL 1-5 Last Admin: 08/05/19 18:36 Dose: 650 mg Apixaban (Eliquis -) 5 mg PO BID [facility] Last Admin: 08/14/19 21:59 Dose: 5 mg Clopidogrel Bisulfate (Plavix -) 75 mg PO DAILY [facility] Last Admin: 08/14/19 10:18 Dose: 75 mg Collagenase (Santyl -) 1 applic TP DAILY [facility]; Protocol Last Admin: 08/14/19 10:50 Dose: 1 applic Cefepime HCl (Maxipime 1 Gm Premix Ivpb) 1 gm in 50 mls @ 100 mls/hr IVPB BID [facility]; Protocol Last Admin: 08/14/19 21:59 Dose: 100 mls/hr Clindamycin Phosphate (Cleocin 600 Mg Premix Ivpb -) 600 mg in 50 mls @ 100 mls /hr IVPB Q8H-IV [facility]; Protocol Last Admin: 08/15/19 03:07 Dose: 100 mls/hr Insulin Aspart (Novolog Vial Sliding Scale -) 1 vial SQ ACHS [facility]; Protocol Last Admin: 08/15/19 06:28 Dose: 2 unit Isosorbide Mononitrate (Imdur -) 30 mg PO DAILY [facility] Last Admin: 08/14/19 10:05 Dose: 30 mg Metoprolol Succinate (Toprol Xl -) 25 mg PO DAILY [facility] Last Admin: 08/14/19 10:19 Dose: 25 mg Nifedipine (Procardia Xl -) 60 mg PO BID [facility] Last Admin: 08/14/19 21:59 Dose: 60 mg Non-Formulary Medication (Lubiprostone [Amitiza]) 8 mcg PO BID [facility] Spironolactone (Aldactone -) 50 mg PO DAILY [facility] Last Admin: 08/08/19 10:07 Dose: 50 mg Valsartan (Diovan -) 320 mg PO DAILY [facility] Last Admin: 08/08/19 10:03 Dose: 320 mg - Objective Vital Signs: Vital Signs Temperature 97.6 F 08/15/19 06:00 Pulse Rate 72 08/15/19 06:00 Respiratory Rate 18 08/15/19 06:00 Blood Pressure 141/53 L 08/15/19 06:00 O2 Sat by Pulse Oximetry (%) 96 08/15/19 06:00 Constitutional: Yes: No Distress, Calm Cardiovascular: Yes: Regular Rate and Rhythm Respiratory: Yes: Regular Gastrointestinal: Yes: Normal Bowel Sounds, Soft Genitourinary: Yes: WNL Musculoskeletal: Yes: WNL Extremities: Yes: Erythema (RLE less erythema/warmth/, +tenderness but improving , still with some swelling but less) Neurological: Yes: Alert Labs: CBC, BMP 08/15/19 07:37 08/15/19 07:37 INR, PTT INR 1.60 (0.82-1.09) H 08/04/19 16:40 Microbiology 08/04/19 16:40 Blood - Peripheral Venous Blood Culture - Final NO GROWTH AFTER 5 DAYS INCUBATION 08/04/19 16:30 Blood - Peripheral Venous Blood Culture - Final NO GROWTH AFTER 5 DAYS INCUBATION Problem List - Problems (1) Cellulitis of right lower extremity Code(s): L03.115 - CELLULITIS OF RIGHT LOWER LIMB (2) CVA (cerebral vascular accident) Code(s): I63.9 - CEREBRAL INFARCTION, UNSPECIFIED Qualifiers: CVA mechanism: unspecified Qualified Code(s): I63.9 - Cerebral infarction, unspecified (3) Coronary artery disease Code(s): I25.10 - ATHSCL HEART DISEASE OF [place] CORONARY ARTERY W/O ANG PCTRS (4) Diabetes mellitus type 2 with complications Code(s): E11.8 - TYPE 2 DIABETES MELLITUS WITH UNSPECIFIED COMPLICATIONS (5) HLD (hyperlipidemia) Code(s): E78.5 - HYPERLIPIDEMIA, UNSPECIFIED (6) HTN (hypertension) Code(s): I10 - ESSENTIAL (PRIMARY) HYPERTENSION (7) TIA (transient ischemic attack) Code(s): G45.9 - TRANSIENT CEREBRAL ISCHEMIC ATTACK, UNSPECIFIED Qualifiers: Transient cerebral ischemia type: unspecified Assessment/Plan RLE cellulitis JUDIT -- Clinically improving. Less erythema/tenderness/edema -- Creatinine trending down to normal -- plan switch to PO antibiotics on Saturday if continues to improve
[2019-08-16] MEDS: CLINDAMYCIN 600MG PREMIX IVPB 600 MG/50 ML BAG IVPB SCH ×3 (02:01→17:55)
[2019-08-16] MEDS: INSULIN SLIDING SCALE (NOVOLOG) 1 VIAL SQ SCH ×4 (06:50→21:50)
--- NOTE | 2019-08-16 08:58 | PN ---
Progress Note, Physician Chief Complaint: No new complaints awaiting completion of abx. History of Present Illness: 78 F h/o HTN, HLD, CAD s/p [place] s/p stent, CVA x 2 (2008, 12/2018), atrial fibrillation on Eliquis, diastolic heart failure, asthma, Type II IDDM, PVD, and left breast cancer. Admitted for RLE cellulitis., as per ID recs, recommending 4-5 more days if IV cefepime, - Current Medication List Current Medications: Active Medications Acetaminophen (Tylenol -) 650 mg PO Q6H PRN PRN Reason: PAIN LEVEL 1-5 Last Admin: 08/05/19 18:36 Dose: 650 mg Apixaban (Eliquis -) 5 mg PO BID [facility] Last Admin: 08/15/19 21:50 Dose: 5 mg Clopidogrel Bisulfate (Plavix -) 75 mg PO DAILY [facility] Last Admin: 08/15/19 10:27 Dose: 75 mg Collagenase (Santyl -) 1 applic TP DAILY [facility]; Protocol Last Admin: 08/15/19 10:25 Dose: 1 applic Cefepime HCl (Maxipime 1 Gm Premix Ivpb) 1 gm in 50 mls @ 100 mls/hr IVPB BID [facility]; Protocol Last Admin: 08/15/19 21:50 Dose: 100 mls/hr Clindamycin Phosphate (Cleocin 600 Mg Premix Ivpb -) 600 mg in 50 mls @ 100 mls /hr IVPB Q8H-IV [facility]; Protocol Last Admin: 08/16/19 02:01 Dose: 100 mls/hr Insulin Aspart (Novolog Vial Sliding Scale -) 1 vial SQ ACHS [facility]; Protocol Last Admin: 08/16/19 06:50 Dose: Not Given Isosorbide Mononitrate (Imdur -) 30 mg PO DAILY [facility] Last Admin: 08/15/19 10:26 Dose: 30 mg Metoprolol Succinate (Toprol Xl -) 25 mg PO DAILY [facility] Last Admin: 08/15/19 10:27 Dose: 25 mg Nifedipine (Procardia Xl -) 60 mg PO BID [facility] Last Admin: 08/15/19 23:20 Dose: 60 mg Non-Formulary Medication (Lubiprostone [Amitiza]) 8 mcg PO BID [facility] Spironolactone (Aldactone -) 50 mg PO DAILY [facility] Last Admin: 08/15/19 10:25 Dose: 50 mg Valsartan (Diovan -) 320 mg PO DAILY [facility] Last Admin: 08/15/19 10:26 Dose: 320 mg - Objective Vital Signs: Vital Signs Temperature 98.4 F 08/16/19 06:00 Pulse Rate 68 08/16/19 06:00 Respiratory Rate 18 08/16/19 06:00 Blood Pressure 142/55 L 08/16/19 06:00 O2 Sat by Pulse Oximetry (%) 97 08/15/19 22:00 General: Elderly woman, comfortable, not in distress HEENT; mucous membranes moist, no anemia, no jaundice, PERRLA, no nystagmus Neck: No JVD, supple, no bruit, thyroid palpably normal, normal carotid pulsations. Chest: Nontender, clear to auscultation bilaterally CVS: S1-S2 regular no murmur/gallop/rub Abdomen: Nondistended, soft, bowel sounds present. 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 antibiotic on Saturday. Code(s): L03.115 - CELLULITIS OF RIGHT LOWER LIMB (2) A-fib Assessment/Plan: Rate controlled on anticoagulation, continue apixaban 5 mg and metoprolol 25 mg daily Code(s): I48.91 - UNSPECIFIED ATRIAL FIBRILLATION (3) JUDIT (acute kidney injury) Assessment/Plan: Stable renal function follow-up BMP Code(s): N17.9 - ACUTE KIDNEY FAILURE, UNSPECIFIED (4) Diastolic heart failure Assessment/Plan: Compensated continue current management Code(s): I50.30 - UNSPECIFIED DIASTOLIC (CONGESTIVE) HEART FAILURE (5) Diabetes mellitus type 2 with complications Assessment/Plan: Continue correction dose insulin. Code(s): E11.8 - TYPE 2 DIABETES MELLITUS WITH UNSPECIFIED COMPLICATIONS (6) Peripheral vascular disease Code(s): I73.9 - PERIPHERAL VASCULAR DISEASE, UNSPECIFIED (7) Coronary artery disease Code(s): I25.10 - ATHSCL HEART DISEASE OF [place] CORONARY ARTERY W/O ANG PCTRS
[2019-08-16 09:30] LABS: BASO % 0.5 % (0-2.0); EOS % 3.5 % (0-4.5); HEMATOCRIT 39.8 % (32.4-45.2); HEMOGLOBIN 13.5 GM/dl (10.7-15.3); LYMPH % 21.9 % (8-40); MCH 31.8 pg (25.7-33.7); MCHC 33.8 g/dl (32.0-36.0); MEAN CELL VOLUME 94.2 fl (80-96); MEAN PLT VOLUME 9.9 fl (7.5-11.1); MONO % 9.1 % (3.8-10.2); PLATELET COUNT 362 K/MM3 (134-434); RBC 4.23 M/mm3 (3.60-5.2); RDW 12.2 % (11.6-15.6); WHITE BLOOD COUNT 8.5 K/mm3 (4.0-10.8)
[2019-08-16 09:34] LABS: CALCIUM 8.9 mg/dl (8.5-10); CREATININE 1.3 mg/dl (0.55-1.3); POTASSIUM 3.6 mmol/L (3.5-5.1)
[2019-08-16] MEDS: APIXABAN 5 MG TABLET PO SCH ×2 (10:00→21:50)
[2019-08-16] MEDS: CLOPIDOGREL BISULFATE 75 MG TABLET (FP) PO SCH (10:00)
[2019-08-16] MEDS: CEFEPIME HCL/D5W 1 GM/50 ML BAG IVPB SCH ×2 (10:00→21:50)
[2019-08-16] MEDS: metoPROLOL SUCCINATE 25 MG TAB.SR.24H (FP) PO SCH (10:00)
[2019-08-16] MEDS: SPIRONOLACTONE 25 MG TABLET (FP) PO SCH (10:00)
[2019-08-16] MEDS: NIFEdipine E.R 60 MG TABLET PO SCH ×2 (10:00→21:50)
[2019-08-16] MEDS: VALSARTAN 160 MG TABLET (UD) PO SCH (10:00)
[2019-08-16] MEDS: ISOSORBIDE MONONITRATE 30 MG TAB.SR.24H (FP) PO SCH (10:00)
[2019-08-16] MEDS: COLLAGENASE CLOSTRIDIUM HIST. 30 GRAMS TUBE TP SCH (10:10)
--- NOTE | 2019-08-16 14:38 | PN ---
Progress Note (short form) - Note Progress Note: covering dr person problems 1. JUDIT 2. hematuria 3. a-fib 4. cellulitis 5. DM 6. h/o renal cyst Current Medications Acetaminophen (Tylenol -) 650 mg PO Q6H PRN PRN Reason: PAIN LEVEL 1-5 Last Admin: 08/05/19 18:36 Dose: 650 mg Apixaban (Eliquis -) 5 mg PO BID [facility] Last Admin: 08/16/19 10:00 Dose: 5 mg Clopidogrel Bisulfate (Plavix -) 75 mg PO DAILY [facility] Last Admin: 08/16/19 10:00 Dose: 75 mg Collagenase (Santyl -) 1 applic TP DAILY [facility]; Protocol Last Admin: 08/16/19 10:10 Dose: 1 applic Cefepime HCl (Maxipime 1 Gm Premix Ivpb) 1 gm in 50 mls @ 100 mls/hr IVPB BID [facility]; Protocol Last Admin: 08/16/19 10:00 Dose: 100 mls/hr Clindamycin Phosphate (Cleocin 600 Mg Premix Ivpb -) 600 mg in 50 mls @ 100 mls /hr IVPB Q8H-IV [facility]; Protocol Last Admin: 08/16/19 17:55 Dose: 100 mls/hr Insulin Aspart (Novolog Vial Sliding Scale -) 1 vial SQ ACHS [facility]; Protocol Last Admin: 08/16/19 16:30 Dose: Not Given Isosorbide Mononitrate (Imdur -) 30 mg PO DAILY [facility] Last Admin: 08/16/19 10:00 Dose: 30 mg Metoprolol Succinate (Toprol Xl -) 25 mg PO DAILY [facility] Last Admin: 08/16/19 10:00 Dose: 25 mg Nifedipine (Procardia Xl -) 60 mg PO BID [facility] Last Admin: 08/16/19 10:00 Dose: 60 mg Non-Formulary Medication (Lubiprostone [Amitiza]) 8 mcg PO BID [facility] Spironolactone (Aldactone -) 50 mg PO DAILY [facility] Last Admin: 08/16/19 10:00 Dose: 50 mg Valsartan (Diovan -) 320 mg PO DAILY [facility] Last Admin: 08/16/19 10:00 Dose: 320 mg she feels better Last Vital Signs Temp Pulse Resp BP Pulse Ox 98.0 F 74 18 139/63 97 08/16/19 18:00 02/23/20 18:00 08/16/19 18:00 08/16/19 18:00 08/16/19 18:00 alert in nad Lungs clear Heart reg Abd soft nontender Ext no edema CBC, BMP 08/16/19 06:00 08/16/19 06:00 IMP- s/p JUDIT kidney function is almost back to normal PLAN -ok to d/c from renal standpoint
--- NOTE | 2019-08-16 15:16 | PN ---
Progress Note, Physician History of Present Illness: Pt is feeling better with decreased pain and swelling in RLE. Has no new complaints. - Current Medication List Current Medications: Active Medications Acetaminophen (Tylenol -) 650 mg PO Q6H PRN PRN Reason: PAIN LEVEL 1-5 Last Admin: 08/05/19 18:36 Dose: 650 mg Apixaban (Eliquis -) 5 mg PO BID [facility] Last Admin: 08/16/19 10:00 Dose: 5 mg Clopidogrel Bisulfate (Plavix -) 75 mg PO DAILY [facility] Last Admin: 08/16/19 10:00 Dose: 75 mg Collagenase (Santyl -) 1 applic TP DAILY [facility]; Protocol Last Admin: 08/16/19 10:10 Dose: 1 applic Cefepime HCl (Maxipime 1 Gm Premix Ivpb) 1 gm in 50 mls @ 100 mls/hr IVPB BID [facility]; Protocol Last Admin: 08/16/19 10:00 Dose: 100 mls/hr Clindamycin Phosphate (Cleocin 600 Mg Premix Ivpb -) 600 mg in 50 mls @ 100 mls /hr IVPB Q8H-IV [facility]; Protocol Last Admin: 08/16/19 10:10 Dose: 100 mls/hr Insulin Aspart (Novolog Vial Sliding Scale -) 1 vial SQ ACHS [facility]; Protocol Last Admin: 08/16/19 11:52 Dose: 4 unit Isosorbide Mononitrate (Imdur -) 30 mg PO DAILY [facility] Last Admin: 08/16/19 10:00 Dose: 30 mg Metoprolol Succinate (Toprol Xl -) 25 mg PO DAILY [facility] Last Admin: 08/16/19 10:00 Dose: 25 mg Nifedipine (Procardia Xl -) 60 mg PO BID [facility] Last Admin: 08/16/19 10:00 Dose: 60 mg Non-Formulary Medication (Lubiprostone [Amitiza]) 8 mcg PO BID [facility] Spironolactone (Aldactone -) 50 mg PO DAILY [facility] Last Admin: 08/16/19 10:00 Dose: 50 mg Valsartan (Diovan -) 320 mg PO DAILY [facility] Last Admin: 08/16/19 10:00 Dose: 320 mg - Objective Vital Signs: Vital Signs Temperature 98.3 F 08/16/19 14:00 Pulse Rate 68 08/16/19 14:00 Respiratory Rate 19 08/16/19 14:00 Blood Pressure 125/54 L 08/16/19 14:00 O2 Sat by Pulse Oximetry (%) 98 08/16/19 14:00 Constitutional: Yes: No Distress, Calm Cardiovascular: Yes: Regular Rate and Rhythm Respiratory: Yes: CTA Bilaterally Gastrointestinal: Yes: Normal Bowel Sounds, Soft Genitourinary: Yes: WNL Extremities: Yes: Erythema (RLE decreased erythema/warmth/tenderness/edema) Edema: RLE: Trace Peripheral Pulses WNL: Yes Integumentary: Yes: WNL Wound/Incision: Yes: Dressing Dry and Intact Neurological: Yes: Alert, Oriented Labs: CBC, BMP 08/16/19 06:00 08/16/19 06:00 INR, PTT INR 1.60 (0.82-1.09) H 08/04/19 16:40 Problem List - Problems (1) Cellulitis of right lower extremity Code(s): L03.115 - CELLULITIS OF RIGHT LOWER LIMB (2) CVA (cerebral vascular accident) Code(s): I63.9 - CEREBRAL INFARCTION, UNSPECIFIED Qualifiers: CVA mechanism: unspecified Qualified Code(s): I63.9 - Cerebral infarction, unspecified (3) Coronary artery disease Code(s): I25.10 - ATHSCL HEART DISEASE OF [place] CORONARY ARTERY W/O ANG PCTRS (4) Diabetes mellitus type 2 with complications Code(s): E11.8 - TYPE 2 DIABETES MELLITUS WITH UNSPECIFIED COMPLICATIONS (5) HLD (hyperlipidemia) Code(s): E78.5 - HYPERLIPIDEMIA, UNSPECIFIED (6) HTN (hypertension) Code(s): I10 - ESSENTIAL (PRIMARY) HYPERTENSION (7) TIA (transient ischemic attack) Code(s): G45.9 - TRANSIENT CEREBRAL ISCHEMIC ATTACK, UNSPECIFIED Qualifiers: Transient cerebral ischemia type: unspecified Assessment/Plan RLE cellulitis JUDIT - resolving -- Pt with less erythema/tenderness/edema -- will switch to PO antibiotics tomorrow -- renal function improving
[2019-08-17] MEDS: CLINDAMYCIN 600MG PREMIX IVPB 600 MG/50 ML BAG IVPB SCH ×2 (02:01→09:17)
[2019-08-17 07:51] LABS: BASO % 0.5 % (0-2.0); EOS % 3.4 % (0-4.5); HEMATOCRIT 37.7 % (32.4-45.2); HEMOGLOBIN 12.6 GM/dl (10.7-15.3); LYMPH % 22.3 % (8-40); MCH 31.2 pg (25.7-33.7); MCHC 33.4 g/dl (32.0-36.0); MEAN CELL VOLUME 93.2 fl (80-96); MEAN PLT VOLUME 10.1 fl (7.5-11.1); NEUT % 63.8 % (42.8-82.8); PLATELET COUNT 371 K/MM3 (134-434); RBC 4.05 M/mm3 (3.60-5.2); RDW 11.9 % (11.6-15.6); WHITE BLOOD COUNT 6.9 K/mm3 (4.0-10.8)
[2019-08-17 07:59] LABS: CALCIUM 8.9 mg/dl (8.5-10); CREATININE 1.5 mg/dl (0.55-1.3); POTASSIUM 3.4 mmol/L (3.5-5.1)
[2019-08-17] MEDS: CEFEPIME HCL/D5W 1 GM/50 ML BAG IVPB SCH (09:17)
[2019-08-17] MEDS: APIXABAN 5 MG TABLET PO SCH (09:17)
[2019-08-17] MEDS: VALSARTAN 160 MG TABLET (UD) PO SCH (09:18)
[2019-08-17] MEDS: CLOPIDOGREL BISULFATE 75 MG TABLET (FP) PO SCH (09:18)
[2019-08-17] MEDS: metoPROLOL SUCCINATE 25 MG TAB.SR.24H (FP) PO SCH (09:18)
[2019-08-17] MEDS: SPIRONOLACTONE 25 MG TABLET (FP) PO SCH (09:18)
[2019-08-17] MEDS: ISOSORBIDE MONONITRATE 30 MG TAB.SR.24H (FP) PO SCH (09:18)
[2019-08-17] MEDS: NIFEdipine E.R 60 MG TABLET PO SCH (09:19)
[2019-08-17] MEDS ORDERED: POTASSIUM CHLORIDE TABS 20 MEQ TABLET.ER (FP) PO ONE (09:37)
[2019-08-17 10:00] VITALS: BP 137/52; PULSE 70; TEMP 98.6
[2019-08-17] MEDS: INSULIN SLIDING SCALE (NOVOLOG) 1 VIAL SQ SCH ×2 (10:05→13:39)
--- NOTE | 2019-08-17 12:49 | DS ---
Physical Exam: SUBJECTIVE: Patient seen and examined OBJECTIVE: Vital Signs Period Temp Pulse Resp BP Sys/Mills Pulse Ox Last 24 Hr 97.8 F-98.6 F 66-74 16-19 125-148/52-63 97-99 PHYSICAL EXAM GENERAL: Awake, alert, and fully oriented. LUNGS: Breath sounds equal, clear to auscultation bilaterally. No wheezes, and no crackles. No accessory muscle use. HEART: Regular rate and rhythm, S1 and S2 ABDOMEN: Soft, nontender, not distended UPPER EXTREMITIES: 2+ pulses, warm, well-perfused. No cyanosis. No clubbing. No peripheral edema. RIGHT LOWER EXTREMITY: Swelling improved, skin creases; erythema not improved, exquisitely tender, wound on posterior calf now necrotic NEUROLOGICAL: Cranial nerves II-XII intact. Normal speech. LABS Laboratory Results - last 24 hr 08/16/19 08/17/19 08/17/19 21:45 05:41 06:45 WBC 6.9 RBC 4.05 Hgb 12.6 Hct 37.7 MCV 93.2 MCH 31.2 MCHC 33.4 RDW 11.9 Plt Count 371 MPV 10.1 Absolute Neuts (auto) 4.5 Neutrophils % 63.8 Lymphocytes % 22.3 Monocytes % 10.0 Eosinophils % 3.4 Basophils % 0.5 Sodium Potassium Chloride Carbon Dioxide Anion Gap BUN Creatinine Est GFR (CKD-EPI)AfAm Est GFR (CKD-EPI)NonAf POC Glucometer 136 138 Random Glucose Calcium 08/17/19 06:45 WBC RBC Hgb Hct MCV MCH MCHC RDW Plt Count MPV Absolute Neuts (auto) Neutrophils % Lymphocytes % Monocytes % Eosinophils % Basophils % Sodium 138 Potassium 3.4 L Chloride 105 Carbon Dioxide 25 Anion Gap 8 BUN 24.0 H Creatinine 1.5 H Est GFR (CKD-EPI)AfAm 38.55 Est GFR (CKD-EPI)NonAf 33.26 POC Glucometer Random Glucose 147 H Calcium 8.9 HOSPITAL COURSE: Date of Admission:08/04/19 Date of Discharge: 08/17/19 Pre hospital course 78 year-old female with a PMH significant for HTN, HLD, CAD s/p [place] s/p stent, CVA x 2 (2008, 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 Presented to the ED for evaluation of RLE pain, redness, and swelling. About 6 days ago patient hit the back of her right leg with the vacuum ribbon cleaner. It became reddened the next day, and progressively worse with each successive day. She has had difficulty ambulating secondary to pain. The pain and redness became so bad she came to the ED. ER course (1) WBC 15.1k (2) esr 66; crp 18.8 Subsequent hospital course 78 year-old female with a PMH significant for HTN, HLD, CAD s/p [place] s/p stent, CVA x 2 (2008, 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 Admitted for RLE cellulitis. Right lower extremity cellulitis Peripheral vascular disease --was treated with Zosyn x 6 days but stopped due to marked elevation in Cr; was continued on another 4 days of cefepime and clindamycin; discharged on PO clinda for another 7 days JUDIT --Cr 0.8 on admission, peaked 2.2, 1.5 at time of discharge --spironolactone and valsartan were held, cautious gentle IV fluids given with improvement --08/10 US: mild bilateral hydronephrosis v. parapelvic cysts; radiology recommends contrast CT with delayed imaging; renal recommended against contrast study Hypertension --BP stable --continued nifedipine; held spironolactone and valsartan due to JUDIT Hyperlipidemia --not on statin therapy Coronary artery disease --continued Plavix, isosorbide, ToprolXL; not on ASA Diastolic heart failure --continued ToprolXL, telmisartan CVAs --continued Plavix; not on ASA, statin Atrial fibrillation --continued Toprol XL for rate control --continued Eliquis Asthma -stable Type II IDDM --Novolog sliding scale coverage Left breast cancer --stable Minutes to complete discharge: 45 Discharge Summary Problems reviewed: Yes Reason For Visit: CELLULITIS OF RIGHT LOWER EXTREMITY Current Active Problems A-fib (Acute) JUDIT (acute kidney injury) (Acute) Afib (Acute) Breast cancer, left breast (Acute) Cellulitis of right lower extremity (Acute) Diastolic heart failure (Acute) Peripheral vascular disease (Acute) Prophylactic measure (Acute) Condition: Improved - Instructions Diet, Activity, Other Instructions: Two prescriptions have been sent to your pharmacy. One is for clindamycin which is an antibiotic. The other is for collagenase/Santyl which is an ointment for the wound on your leg. Your nurse will show you how to apply this ointment on a daily basis. An appointment has been made for you to followup at the [facility] at [facility] on the fifth floor. Your appointment is for 2019 at 4:00PM WITH DR. LUCAS LAFLEUR. Referrals: Lucas Lafleur MD [Non Staff, Medical] - Amando Bains MD [Primary Care Provider] - Disposition: HOME - Home Medications Comprehensive Discharge Medication List: Ambulatory Orders Apixaban [Eliquis] 5 mg PO BID 08/04/19 Clopidogrel Bisulfate [Plavix] 75 mg PO DAILY 08/04/19 Empagliflozin [Jardiance] 1 tab PO DAILY 08/04/19 Insulin Lispro Protamin/Lispro [Humalog Mix 75-25 Vial] 10 units SQ ASDIR Isosorbide Dinitrate [Isordil] 30 mg PO DAILY 08/04/19 Lubiprostone [Amitiza] 8 mcg PO BID 08/04/19 Metoprolol Succinate [Toprol Xl] 25 mg PO DAILY 08/04/19 Nifedipine [Nifedipine ER] 60 mg PO BID 08/04/19 Sitagliptin Phos/Metformin HCl [Janumet 50-500 mg Tablet] 1 each PO BID Spironolactone 50 mg PO DAILY 08/04/19 Telmisartan 80 mg PO DAILY 08/04/19 Zolpidem Tartrate [Ambien] 5 mg PO PRN 08/04/19 Acetaminophen [Tylenol .Regular Strength -] 650 mg PO Q6H PRN tablet 08/13/19 Collagenase Clostridium Hist. [Santyl -] 1 applic TP DAILY #1 tube 08/13/19 Insulin Sliding Scale [Novolog Vial Sliding Scale -] 1 vial SQ ACHS units 08/13 This patient is new to me today: No Emergency Visit: Yes ED Registration Date: 08/04/19 Care time: The patient presented to the Emergency Department on the above date and was hospitalized for further evaluation of their emergent condition. Critical Care patient: No - Discharge Referral Referred to [facility] Med P.C.: No
--- NOTE | 2019-08-17 12:59 | PN ---
Progress Note, Physician - Current Medication List Current Medications: Active Medications Acetaminophen (Tylenol -) 650 mg PO Q6H PRN PRN Reason: PAIN LEVEL 1-5 Last Admin: 08/05/19 18:36 Dose: 650 mg Apixaban (Eliquis -) 5 mg PO BID [facility] Last Admin: 08/17/19 09:17 Dose: 5 mg Clopidogrel Bisulfate (Plavix -) 75 mg PO DAILY [facility] Last Admin: 08/17/19 09:18 Dose: 75 mg Collagenase (Santyl -) 1 applic TP DAILY [facility]; Protocol Last Admin: 08/16/19 10:10 Dose: 1 applic Cefepime HCl (Maxipime 1 Gm Premix Ivpb) 1 gm in 50 mls @ 100 mls/hr IVPB BID [facility]; Protocol Last Admin: 08/17/19 09:17 Dose: 100 mls/hr Clindamycin Phosphate (Cleocin 600 Mg Premix Ivpb -) 600 mg in 50 mls @ 100 mls /hr IVPB Q8H-IV [facility]; Protocol Last Admin: 08/17/19 09:17 Dose: 100 mls/hr Insulin Aspart (Novolog Vial Sliding Scale -) 1 vial SQ ACHS [facility]; Protocol Last Admin: 08/17/19 10:05 Dose: Not Given Isosorbide Mononitrate (Imdur -) 30 mg PO DAILY [facility] Last Admin: 08/17/19 09:18 Dose: 30 mg Metoprolol Succinate (Toprol Xl -) 25 mg PO DAILY [facility] Last Admin: 08/17/19 09:18 Dose: 25 mg Nifedipine (Procardia Xl -) 60 mg PO BID [facility] Last Admin: 08/17/19 09:19 Dose: 60 mg Non-Formulary Medication (Lubiprostone [Amitiza]) 8 mcg PO BID [facility] Spironolactone (Aldactone -) 50 mg PO DAILY [facility] Last Admin: 08/17/19 09:18 Dose: 50 mg Valsartan (Diovan -) 320 mg PO DAILY [facility] Last Admin: 08/17/19 09:18 Dose: 320 mg - Objective Vital Signs: Vital Signs Temperature 98.6 F 08/17/19 09:00 Pulse Rate 70 08/17/19 09:00 Respiratory Rate 18 08/17/19 09:00 Blood Pressure 137/52 L 08/17/19 09:00 O2 Sat by Pulse Oximetry (%) 98 08/17/19 09:00 Labs: CBC, BMP 08/17/19 06:45 08/17/19 06:45 INR, PTT INR 1.60 (0.82-1.09) H 08/04/19 16:40
[2019-08-17] MEDS: COLLAGENASE CLOSTRIDIUM HIST. 30 GRAMS TUBE TP SCH (13:00)
== END 2019-08-17 13:40 | disposition home or self-care (01) | DRG 603 ==
LOC: FER 15:44 → FM/S 17:56
PROVIDERS: ADMIT Internal Medicine; ATTEND Nurse Practitioner Acute Care
PROC: 0HDKXZZ Extraction of Right Lower Leg Skin, External Approach (ICD-10-PCS; principal; 2019-08-12)
DX: L03.115 Cellulitis of right lower limb (principal); N17.9 Acute kidney failure, unspecified; N13.30 Unspecified hydronephrosis; I50.32 Chronic diastolic (congestive) heart failure; I11.0 Hypertensive heart disease with heart failure; I10 Essential (primary) hypertension; I25.10 Atherosclerotic heart disease of native coronary artery without angina pectoris; N28.1 Cyst of kidney, acquired; I25.2 Old myocardial infarction; R31.9 Hematuria, unspecified; I48.91 Unspecified atrial fibrillation; J45.909 Unspecified asthma, uncomplicated; E11.51 Type 2 diabetes mellitus with diabetic peripheral angiopathy without gangrene; Z85.3 Personal history of malignant neoplasm of breast; Z95.5 Presence of coronary angioplasty implant and graft; Z86.73 Personal history of transient ischemic attack (TIA), and cerebral infarction without residual deficits
CPT/HCPCS: 36415; 73590-TC-RT-FY; 73700-TC-RT; 76775-TC; 80048; 80053; 81003; 81015; 82436; 82565; 82962; 83605; 83735; 84133; 84300; 85025; 85610; 85651; 85730; 86140; 86850; 86900; 86901; 87040; 87205; 93005; 93971-TC; 99285-25; G0480; J7030

== ENCOUNTER 2024-12-11 14:30 | Emergency (ER) | payer OTHER, BC ==
[2024-12-11 14:40] VITALS: BP 170/82; TEMP 98.2; BMI 26.2
[2024-12-11] MEDS ORDERED: TETRACAINE 0.5% OPHTH SOLN 2 ML BOTTLE ONE (14:51)
[2024-12-11] MEDS ORDERED: FLUORESCEIN NA 1 EA STRIP ONE (14:51)
[2024-12-11] MEDS: TETRACAINE 0.5% HCL 0.6ML DROPPER.BOTTLE OD ONE (15:00)
[2024-12-11] MEDS: FLUORESCEIN NA 1 EA STRIP OD ONE (15:05)
[2024-12-11] MEDS: predniSONE 20 MG TABLET (UD) PO ONE (15:32)
[2024-12-11] MEDS ORDERED: predniSONE 20 MG TABLET (UD) ONE (15:32)
[2024-12-11 15:33] VITALS: PULSE 67; RESP 17
== END 2024-12-11 15:41 | disposition home or self-care (01) ==
LOC: FER 14:30
DX: R21 Rash and other nonspecific skin eruption (principal); B02.8 Zoster with other complications; L29.9 Pruritus, unspecified; H53.8 Other visual disturbances
CPT/HCPCS: 99283-25